=== PATIENT | female | born 1970 | race Caucasian/White ===

== ENCOUNTER → 2016-05-08 | Outpatient (CLI) | payer BC ==
[~2016-05-08] MED LIST: ACHYD1T PO; ALLO300T2 PO; AMOX-355 PO; CEFU250S PO; CETI10TA20 PO; CHOL100055 IJ; CIPR500T4 PO; FEXO-104 PO; FEXO-192 PO; FEXO-46 PO; GUAI1CAP PO; HYDR-1231 PO; HYDR-3720 PO; HYDR-3812 PO; HYDR-3876 PO; HYDR-757 PO; HYDR15SO6 GT; IBUP-1780 PO; LEVO100T7 PO; LEVO112T24 PO; LEVO500T2 PO; LIRA0.6P SQ; LISI1TAB10 PO; LVT.05T PO; METF-760 PO; METF750T2 PO; NITR-33 PO; NITR-68 PO; ONDA8TAB13 PO; OXYC-309 PO; PARO10TA3 PO; PHEN200T27 PO; POTA15TA PO; POTA15TA9 PO; PRD20T PO; PRINZIDE; PRX20T PO; ROPI0.5T2 PO; ROPI2TAB4 PO; TAMS0.4C98 PO
--- OUTSIDE RECORDS SUMMARY | 2016-05-08 15:50 | XMS REPORT | Continuity of Care Document ---
Author Author [facility] Organization [facility] Address Unknown Phone Unavailable Care Team Providers Care Telephone Order Supervisor Name Role Phone BASSAM OSORIO MD PCP Insurance Providers Payer Name Policy Number Subscriber Name Relationship [facility] [id number] Dimitris Mack 18 Self / Same As Patient Advance Directives Directive Response Recorded Date/Time Advance Directives No 01/30/14 7:00pm Health Care Power of Clinical Courier No 01/30/14 7:00pm Organ Donor No 01/30/14 7:00pm Resuscitation Status Full Code 01/30/14 7:00pm Problems Medical Problems Problem Onset Date Status Ureteric stone Unknown Active Medications Medication Dose Route Sig Days/Qty Instructions Order Date Discontinued Date Status Paroxetine HCl 20 Mg PO DAILY 04/21/06 Active Levothyroxine Sodium 50 Mcg PO DAILY 04/21/06 01/24/14 Discontinued [Prinzide] 04/21/06 06/02/13 Discontinued Acetaminophen/Hydrocodone Bitart ([place]) 1 Each PO Q4-6HR PRN PAIN 14 Qty 04/15/13 08/16/13 Discontinued Lisinopril/Hydrochlorothiazide 1 Each PO DAILY 06/02/13 Active Oxycodone Hcl/Acetaminophen 1 Each PO EVERY 4HRS PRN PAIN 14 Qty 08/16/13 Discontinued Ciprofloxacin Hcl 500 Mg PO TWICE A DAY 20 Qty 06/02/13 06/08/13 Discontinued Phenazopyridine HCl 1 Each PO TID PRN PRN SPASMS 30 Qty 06/02/1301/24 Discontinued Ondansetron 8 Mg PO EVERY 6 HOURS PRN NAUSEA/VOMITING 10 Qty 06/02/13 01/24/14 Discontinued Metformin HCl (Glucophage Xr) 750 Mg PO TWICE A DAY WITH MEALS 01/24/14 Discontinued Fexofenadine HCl 180 Mg PO BEDTIME 06/03/13 Active Ropinirole Hcl 2 Mg PO BEDTIME PRN RESTLESS LEG PRN RESTLESS LEG 01/24/14 Discontinued Guaifenesin/D-Methorphan Hb 1 Tab PO EVERY 12 HOURS PRN SINUS INFECTION 06/03/13 01/24/14 Discontinued Nitrofurantoin Macrocrystals 1 Each PO TWICE A DAY 14 Days 08/16/13 Discontinued Acetaminophen/Hydrocodone Bitart 1-2 Tab PO EVERY 4HRS For PAIN 30 Qty 08/16/13 01/24/14 Discontinued Levothyroxine Sodium 112 Mcg PO DAILY 01/24/14 Active Ropinirole Hcl 0.5 Mg PO BEDTIME PRN RESTLESS LEGS 01/24/14 Active Hydrocodone Bit/Acetaminophen 15-30 Ml GT EVERY 4HRS 350 Qty 01/31/14 Active Social History Social History Problem Response Recorded Date/Time Alcohol Use Denies Use 01/30/2014 7:00pm Recreational Drug Use No 01/30/2014 7:00pm Recent Foreign Travel No 06/02/2013 3:57pm Recent Infectious Disease Exposure No 06/02/2013 3:57pm Hospitalization with Isolation Denies 06/02/2013 3:57pm Sexually Transmitted Disease No 01/30/2014 7:00pm HIV/AIDS No 01/30/2014 7:00pm Smoking Status Never a Smoker 01/30/2014 2:11pm Query Response Start Date Stop Date Smoking Status Never a Smoker Hospital Discharge Instructions No hospital discharge instructions. Plan of Care No plan of care. Functional Status No functional status results. Allergies, Adverse Reactions, Alerts Allergen Type Severity Reaction Status Last Updated Erythromycin base Allergy Unknown Active 04/21/06 Immunizations Name Given Type Date of Influenza Vaccine 04/07/13 Historical Tetanus Booster (TDap) Unknown Historical Vital Signs Acute Vital Signs Vital Response Date/Time Temperature (Fahrenheit) 98.0 degrees F (97.6 - 99.5) Temperature (Calculated Celsius) 36.65361 degrees C (36.4 - 37.5) Temperature Source Tympanic Pulse Rate (adult) 83 bpm (60 - 90) Respiratory Rate 18 bpm (12 - 24) O2 Sat by Pulse Oximetry 94 % (88 - 100) Blood Pressure 128/84 mm Hg Pain Pain Intensity 0 Height (Feet) 5 feet Height (Inches) 5.00 inches Height (Calculated Centimeters) 165.107056 cm Weight (Pounds) 276 pounds Weight (Calculated Grams) 309368.495 gm Weight (Calculated Kilograms) 125.705280 kilograms Calculated BMI 45.92 Results Laboratory Results Test Name Result Units Flags Reference Collection Date/Time Result Date/ Time Comments Hemoglobin 13.6 G/DL 11.5-16.0 01/31/2014 5:13am 01/31/2014 5:47am Hematocrit 40 % 35-52 01/31/2014 5:13am 01/31/2014 5:47am Glucometer 109 MG/DL 70-110 01/31/2014 9:06am 01/31/2014 9:13am White Blood Count 8.5 10^3/uL 4.3-11.0 01/24/2014 11:10am 01/24/2014 11 :28am Red Blood Count 4.75 10^6/uL 4.35-5.85 01/24/2014 11:10am 01/24/2014 11 :28am Hemoglobin 14.5 G/DL 11.5-16.0 01/24/2014 11:10am 01/24/2014 11:28am Hematocrit 41 % 35-52 01/24/2014 11:10am 01/24/2014 11:28am Mean Corpuscular Volume 87 FL 80-99 01/24/2014 11:10am 01/24/2014 11: 28am Mean Corpuscular Hemoglobin 31 PG 25-34 01/24/2014 11:10am 01/24/2014 11:28am Mean Corpuscular Hemoglobin Concent 35 G/DL 32-36 01/24/2014 11:10am 11:28am Red Cell Distribution Width 12.7 % 10.0-14.5 01/24/2014 11:10am 2013 11:28am Platelet Count 314 10^3/uL 130-400 01/24/2014 11:01/24/2014 11: 28am Mean Platelet Volume 9.3 FL 7.4-10.4 01/24/2014 11:01/24/2014 11: 28am Neutrophils (%) (Auto) 62 % 42-75 01/24/2014 11:01/24/2014 11: 28am Lymphocytes (%) (Auto) 22 % 12-44 01/24/2014 11:01/24/2014 11: 28am Monocytes (%) (Auto) 7 % 0-12 01/24/2014 11:01/24/2014 11:28am Eosinophils (%) (Auto) 9 % 0-10 01/24/2014 11:01/24/2014 11:28am Basophils (%) (Auto) 1 % 0-10 01/24/2014 11:01/24/2014 11:28am Neutrophils # (Auto) 5.3 X 10^3 1.8-7.8 01/24/2014 11:01/24/2014 11:28am Lymphocytes # (Auto) 1.8 X 10^3 1.0-4.0 01/24/2014 11:01/24/2014 11:28am Monocytes # (Auto) 0.6 X 10^3 0.0-1.0 01/24/2014 11:01/24/2014 11: 28am Eosinophils # (Auto) 0.7 10^3/uL H 0.0-0.3 01/24/2014 11:01/24/2014 11:28am Basophils # (Auto) 0.1 10^3/uL 0.0-0.1 01/24/2014 11:01/24/2014 11 :28am Sodium Level 138 MMOL/L 135-145 01/24/2014 11:01/24/2014 11:43am Potassium Level 3.7 MMOL/L 3.6-5.0 01/24/2014 11:01/24/2014 11: 43am Chloride Level 103 MMOL/L 98-107 01/24/2014 11:01/24/2014 11:43am Carbon Dioxide Level 28 MMOL/L 21-32 01/24/2014 11:01/24/2014 11: 43am Blood Urea Nitrogen 8 MG/DL 7-18 01/24/2014 11:10am 01/24/2014 11:43am Creatinine 0.61 MG/DL 0.60-1.30 01/24/2014 11:10am 01/24/2014 11:43am BUN/Creatinine Ratio 13 01/24/2014 11:10am 01/24/2014 11:43am Estimat Glomerular Filtration Rate > 60 01/24/2014 11:10am 2013 11:43am GFR INTERPRETIVE DATA UNITS FOR ESTIMATED GFR (eGFR): mL/min/1.73 M2 REFERENCE RANGE FOR ESTIMATED GFR (eGFR) eGFR NORMAL eGFR >60 MODERATELY DECREASED eGFR 30-59 SEVERLY DECREASED eGFR 15-29 KIDNEY FAILURE <15 (OR DIALYSIS) Glucose Level 124 MG/DL H 70-105 01/24/2014 11:10am 01/24/2014 11:43am Calcium Level 9.1 MG/DL 8.5-10.1 01/24/2014 11:10am 01/24/2014 11:43am Procedures Procedure Status Date Provider(s) Laparoscopic repair of umbilical hernia completed 01/30/14 ADAN AUGUSTIN MD Encounters Encounter Location Date/Time Departed [facility] Day Care [facility] 01/30/14 12:40pm Registered Clinic [facility] 01/24/14 10:48am Registered Clinic [facility] 01/03/14 10:12am
--- NOTE | 2016-05-08 18:20 | Diagnostic Imaging Report ---
PROCEDURE: CT sinuses without contrast TECHNIQUE: Multiple contiguous axial images were obtained through the sinuses without the use of intravenous contrast. Coronal and sagittal reformations were then performed. INDICATION: Chronic sinusitis. COMPARISON: 11/21/15. FINDINGS: There is interval complete opacification of the left maxillary sinus. This also fills and obliterates the ostiomeatal complex region which appears to be widened. This is possibly related to prior surgery or if not surgically done, then underlying expansile process such as antrochoanal polyp could be considered. There are postsurgical changes seen in the ethmoidal air cells area with open drainage to the nasal cavity. There is development of mucosal thickening, however, or polyposis into the region of the left ethmoidal air cells contiguous with the left maxillary sinus lesion. The right maxillary sinus demonstrates mild mucosal thickening inferiorly. Postsurgical changes widening the drainage pathway are seen. The frontal sinuses are clear. The sphenoidal sinuses are clear. IMPRESSION: Interval sinonasal surgery seen when compared to 11/21/2015. There is complete opacification of the left maxillary sinus with widening of the drainage pathway which could be at least in part postsurgical. Correlate with operative details. This process extends to the left ethmoidal air cells area and perhaps further widens the drainage pathway of the left maxillary sinus, may suggest an underlying polyp. Dictated by: Dictated on workstation # [id number]
== END ==
LOC: RAD 15:47
PROVIDERS: ATTEND Otolaryngology Otolaryngology/Facial Plastic Surgery
DX: J32.9 Chronic sinusitis, unspecified (principal)
CPT/HCPCS: 70486

== ENCOUNTER 2016-05-26 06:03 | Outpatient (CLI) | payer BC ==
[~2016-05-26] VITALS: Ht 165.1 cm; Wt 123.4 kg
[~2016-05-26 06:03] MED LIST changes: -ALLO300T2 PO; -CEFU250S PO; -FEXO-192 PO; -LIRA0.6P SQ; -METF-760 PO
--- OUTSIDE RECORDS SUMMARY | 2016-05-26 06:07 | XMS REPORT | Continuity of Care Document ---
Author Author [facility] Organization [facility] Address Unknown Phone Unavailable Care Team Providers Care Refrigeration Houseman Name Role Phone BASSAM OSORIO MD PCP Insurance Providers Payer Name Policy Number Subscriber Name Relationship [facility] [id number] Dimitris Mack 18 Self / Same As Patient Advance Directives Directive Response Recorded Date/Time Advance Directives No 01/30/14 7:00pm Health Care Power of Inspector Rubber Stamp Die No 01/30/14 7:00pm Organ Donor No 01/30/14 7:00pm Resuscitation Status Full Code 01/30/14 7:00pm Problems Medical Problems Problem Onset Date Status Ureteric stone Unknown Active Medications Medication Dose Route Sig Days/Qty Instructions Order Date Discontinued Date Status Paroxetine HCl 20 Mg PO DAILY 04/21/06 Active Levothyroxine Sodium 50 Mcg PO DAILY 04/21/06 01/24/14 Discontinued [Prinzide] 04/21/06 06/02/13 Discontinued Acetaminophen/Hydrocodone Bitart ([facility]) 1 Each PO Q4-6HR PRN PAIN 14 [...] F (97.6 - 99.5) Temperature (Calculated Celsius) 36.85322 degrees C (36.4 - 37.5) Temperature Source Tympanic Pulse Rate (adult) 83 bpm (60 - 90) Respiratory Rate 18 bpm (12 - 24) O2 Sat by Pulse Oximetry 94 % (88 - 100) Blood Pressure 128/84 mm Hg Pain Pain Intensity 0 Height (Feet) 5 feet Height (Inches) 5.00 inches Height (Calculated Centimeters) 165.542916 cm Weight (Pounds) 276 pounds Weight (Calculated Grams) 362118.495 gm Weight (Calculated Kilograms) 125.223824 kilograms Calculated BMI 45.92 Results Laboratory Results [...] Location Date/Time Departed Surgical Day Care [facility] 01/30/14 12:40pm Registered Clinic [facility] 01/24/14 10:48am Registered Clinic [facility] 01/03/14 10:12am
[2016-05-26] MEDS ORDERED: LIRA0.6P SQ (16:00)
[2016-05-26] MEDS ORDERED: METF-760 PO (16:00)
[2016-05-26] MEDS ORDERED: FEXO-192 PO (16:00)
[2016-05-26] MEDS ORDERED: ALLO300T2 PO (16:00)
== END 2016-05-26 16:11 ==
LOC: PREOP 06:03
PROVIDERS: ATTEND Otolaryngology Otolaryngology/Facial Plastic Surgery
DX: Z01.818 Encounter for other preprocedural examination (principal); J32.0 Chronic maxillary sinusitis; J33.9 Nasal polyp, unspecified

== ENCOUNTER 2016-05-30 07:38 | Day surgery (SDC) | payer BC ==
[~2016-05-30] VITALS: Ht 165.1 cm; Wt 123.4 kg
[~2016-05-30 07:38] MED LIST changes: +ALLO300T2 PO; +FEXO-192 PO; +LIRA0.6P SQ; +METF-760 PO
[2016-05-30] MEDS: LACTATED RINGERS 1,000 ML IV PRN ×2 (07:55→10:25)
[2016-05-30 08:00] VITALS: BP 128/81
[2016-05-30 08:10] LABS: BASOPHILS # (AUTO) 0.1 10^3/uL (0.0-0.1); BASOPHILS % (AUTO) 1 % (0-10); EOSINOPHILS # (AUTO) 0.6 10^3/uL (0.0-0.3); EOSINOPHILS % (AUTO) 8 % (0-10); LYMPHOCYTES # (AUTO) 2.5 X 10^3 (1.0-4.0); LYMPHOCYTES % (AUTO) 32 % (12-44); MEAN CORPUSCULAR HEMOGLOBIN 29 PG (25-34); MEAN CORPUSCULAR HGB CONC 34 G/DL (32-36); MEAN CORPUSCULAR VOLUME 85 FL (80-99); MEAN PLATELET VOLUME 9.4 FL (7.4-10.4); MONOCYTES # (AUTO) 0.6 X 10^3 (0.0-1.0); MONOCYTES % (AUTO) 8 % (0-12); NEUTROPHILS % (AUTO) 52 % (42-75); PLATELET COUNT 395 10^3/uL (130-400); RED BLOOD COUNT 5.18 10^6/uL (4.35-5.85); RED CELL DISTRIBUTION WIDTH 13.1 % (10.0-14.5); WHITE BLOOD COUNT 7.7 10^3/uL (4.3-11.0)
[2016-05-30] MEDS ORDERED: CEFUROXIME 1.5 GM/NS 50 ML IVPB IV ONE ×2 (08:15)
[2016-05-30 08:24] LABS: ANION GAP 13 MMOL/L (5-14); BLOOD UREA NITROGEN 11 MG/DL (7-18); BUN/CREATININE RATIO 15; CALCIUM 9.3 MG/DL (8.5-10.1); CARBON DIOXIDE 26 MMOL/L (21-32); CHLORIDE 102 MMOL/L (98-107); CREATININE SERUM 0.73 MG/DL (0.60-1.30); GFR ESTIMATED > 60; GLUCOSE 122 MG/DL (70-105); POTASSIUM 3.7 MMOL/L (3.6-5.0); SODIUM 141 MMOL/L (135-145)
[2016-05-30] MEDS ORDERED: BSS 15 ML ONE (09:06)
[2016-05-30] MEDS ORDERED: COCAINE HCL 4% 2 ML SYR ONE (09:06)
[2016-05-30] MEDS ORDERED: PHENYLEPHRINE 0.5% NASAL SPR (NEO-SYNEPHRINE) REG ONE (09:06)
[2016-05-30] MEDS ORDERED: LIDOCAINE/EPI 1%-1:100,000 (XYLOCAINE) 20ML ONE (09:06)
[2016-05-30] MEDS ORDERED: MIDAZOLAM 2 MG/2 ML (VERSED) VIAL ONE (09:16)
[2016-05-30] MEDS ORDERED: fentaNYL INJECTION 100 MCG/2 ML AMP ONE (09:16)
[2016-05-30] MEDS ORDERED: proPOfol 200 MG/20 ML (DIPRIVAN) VIAL IV ONE (09:20)
[2016-05-30] MEDS ORDERED: ATRACURIUM 50 MG/5 ML (TRACRIUM) IV ONE (09:20)
[2016-05-30] MEDS ORDERED: DEXAMETHASONE PF 10 MG/ML (DECADRON) VIAL ONE (09:20)
[2016-05-30] MEDS ORDERED: SEVOFLURANE (ULTANE) 15 ML INHAL SOLN ONE (09:20)
[2016-05-30] MEDS ORDERED: LACTATED RINGERS 1,000 ML IV ONE ×2 (09:20→10:27)
[2016-05-30] MEDS ORDERED: LIDOCAINE PF 2% 10 ML (XYLOCAINE) AMP ONE (09:20)
--- NOTE | 2016-05-30 09:37 | Progress Note-Pre Operative ---
Pre-Operative Progress Note H&P Reviewed The H&P was reviewed, patient examined and no changes noted. Date H&P Reviewed: May 30, 2016 Time H&P Reviewed: 09:00 Pre-Operative Diagnosis: REcurrent Left Sinusitis STAN BALDWIN MD May 30, 2016 9:37 am
[2016-05-30] MEDS ORDERED: D5 1/2 NS W/KCL 20 MEQ/L 1,000 ML IV SCH (10:29)
[2016-05-30] MEDS ORDERED: GLYCOPYRROLATE 0.2 MG/ML (ROBINUL) 2 ML VIAL ONE (10:29)
[2016-05-30] MEDS ORDERED: NEOSTIGMINE (BLOXIVERZ ) 1 MG/1ML 10 ML VIAL ONE (10:29)
--- NOTE | 2016-05-30 10:29 | Progress Note-Post Operative ---
Post-Operative Progess Note Pre-Operative Diagnosis REcurrent Left Sinusitis Post-Operative Diagnosis same Post-Op Procedure Note Date of Procedure: May 30, 2016 Name of Procedure: REvision Left Endoscopic Sius Surgery Anesthesia Type get Estimated blood loss (mL): minimal Packing: DNP-Left Side Specimen(s) collected left sinus disease, aErobic and anaerobic clutlre with fungal cultures STAN BALDWIN MD May 30, 2016 10:29 am
[2016-05-30] MEDS ORDERED: PROMETHAZINE INJ 25 MG/ML (PHENERGAN) AMP IVP PRN (10:30)
[2016-05-30] MEDS ORDERED: HYDROcodone/APAP 5 MG/325 MG (LORTAB) TAB PO PRN (10:30)
[2016-05-30] MEDS ORDERED: ACETAMINOPHEN 325 MG TABLET/CAPLET (TYLENOL) PO PRN (10:30)
[2016-05-30] MEDS ORDERED: morphine INJ 10 MG/ML 1ML (SYR OR VIAL) ONE (10:33)
[2016-05-30] MEDS ORDERED: PROMETHAZINE INJ 25 MG/ML (PHENERGAN) AMP IV PRN (10:45)
[2016-05-30] MEDS ORDERED: MEPERIDINE (DEMEROL) INJ 50 MG/ML IV PRN (10:45)
[2016-05-30] MEDS ORDERED: ONDANSETRON 4 MG/2 ML (SDV) Z0FRAN IV PRN (10:45)
[2016-05-30] MEDS ORDERED: morphine INJ 10 MG/ML 1ML (SYR OR VIAL) IV PRN (10:45)
[2016-05-30] MEDS ORDERED: fentaNYL INJECTION 100 MCG/2 ML AMP IV PRN (10:45)
[2016-05-30] MEDS ORDERED: HYDR-3812 PO (10:56)
[2016-05-30] MEDS ORDERED: CEFU250S PO (10:56)
[2016-05-30 11:25] VITALS: BP 141/77
[2016-05-30 11:55] VITALS: BP 131/88
--- OUTSIDE RECORDS SUMMARY | 2016-06-01 12:01 | XMS REPORT | Continuity of Care Document ---
Author Author [facility] Organization [facility] Address Unknown Phone Unavailable Allergies Active Description Code Type Severity Reaction Onset Reported/Identified Relationship to Patient Clinical Status Yes ciprofloxacin [id number] Drug Allergy Mild SLEEPLESSNESS 05/26/2016 Yes Sulfa (Sulfonamide Antibiotics) [id number] Drug Allergy Mild SLEEPLESSNESS 05/26/2016 Yes erythromycin base [id number] Drug Allergy Unknown N/A 05/26/2016 Medications Problems Date Dx Coded Attending Type Code Diagnosis Diagnosed By 04/17/2009 Ot 250.00 04/17/2009 Ot 327.23 04/17/2009 Ot 401.9 01/18/2013 BASSAM OSORIO MD Ot 789.1 01/18/2013 BASSAM OSORIO MD Ot 790.6 04/15/2013 VAUGHN HUDDLESTON MD Ot 592.1 04/15/2013 VAUGHN HUDDLESTON MD Ot 789.04 06/02/2013 CANDI SAUCEDO Ot 592.1 06/02/2013 CANDI SAUCEDO Ot 724.5 06/08/2013 KRYSTIAN GRIMES MD Ot 592.0 08/16/2013 SYDNEY TOWNSEND, KRYSTIAN Rosenthal Ot 592.0 10/05/2013 KRYSTIAN GRIMES MD A Ot 592.9 01/31/2014 ADAN AUGUSTIN MD Ot 250.00 01/31/2014 ADAN AUGUSTIN MD Ot 272.0 01/31/2014 ADAN AUGUSTIN MD Ot 278.01 01/31/2014 ADAN AUGUSTIN MD Ot 327.23 01/31/2014 ADAN AUGUSTIN MD Ot 401.9 01/31/2014 ADAN AUGUSTIN MD Ot 553.1 01/31/2014 ADAN AUGUSTIN MD Ot V85.42 02/21/2014 ADAN AUGUSTIN MD Ot 553.1 02/21/2014 ADAN AUGUSTIN MD Ot 592.0 07/22/2014 KARO TOWNSEND, VAUGHN A Ot 787.01 07/22/2014 KARO TOWNSEND, VAUGHN A Ot V45.86 09/06/2014 SYDNEY TOWNSEND, KRYSTIAN A Ot 592.9 09/15/2014 SYDNEY TOWNSEND, KRYSTIAN A Ot 592.9 09/22/2014 SYDNEY TOWNSEND, KRYSTIAN A Ot 592.9 09/23/2014 KARO TOWNSEND, VAUGHN A Ot 592.1 09/23/2014 KARO TOWNSEND, VAUGHN A Ot 724.5 09/23/2014 Ot 465.9 09/23/2014 Ot 250.00 09/23/2014 Ot 599.0 09/23/2014 Ot 473.9 09/23/2014 DEVON TOWNSEND, BASSAM Hoyos Ot V76.12 09/23/2014 DEVON TOWNSEND, BASSAM Hoyos Ot 789.1 09/23/2014 DEVON TOWNSEND, BASSAM M Ot 592.0 09/23/2014 CANDI SAUCEDO Ot 592.0 09/23/2014 CANDI SAUCEDO Ot 724.5 09/23/2014 SYDNEY TOWNSEND, KRYSTIAN A Ot 592.1 09/23/2014 SYDNEY TOWNSEND, KRYSTIAN A Ot V72.63 09/23/2014 SYDNEY TOWNSEND, KRYSTIAN A Ot V72.81 09/23/2014 SYDNEY TOWNSEND, KRYSTIAN A Ot V72.83 09/23/2014 SYDNEY TOWNSEND, KRYSTIAN A Ot V72.84 09/23/2014 SYDNEY TOWNSEND, KRYSTIAN A Ot 592.0 09/23/2014 CHARLI TOWNSEND, ADAN Ot 530.81 09/23/2014 CHARLI TOWNSEND, ADAN Ot 553.3 09/23/2014 SYDNEY TOWNSEND, KRYSTIAN A Ot 592.0 09/23/2014 SYDNEY TOWNSEND, KRYSTIAN A Ot 592.0 09/23/2014 SYDNEY TOWNSEND, KRYSTIAN A Ot V72.84 09/23/2014 SYDNEY TOWNSEND, KRYSTIAN A Ot 592.0 09/23/2014 Ot 592.9 09/23/2014 CHARLI TOWNSEND, ADAN Ot 530.81 09/23/2014 CHARLI TOWNSEND, ADAN Ot V45.86 09/23/2014 CHARLI TOWNSEND, ADAN Ot 553.1 09/23/2014 CHARLI TOWNSEND, ADAN Ot 592.0 09/23/2014 CHARLI TOWNSEND, ADAN Ot 553.1 09/23/2014 CAHRLI TOWNSEND, ADAN Ot V72.63 09/23/2014 CHARLI TOWNSEND, ADAN Ot V74.8 09/23/2014 SYDNEY TOWNSEND, KRYSTIAN A Ot 592.9 10/11/2014 SYDNEY TOWNSEND, KRYSTIAN A Ot 592.9 11/07/2014 SYDNEY TOWNSEND, KRYSTIAN A Ot 592.0 12/04/2014 SYDNEY TOWNSEND, KRYSTIAN A Ot 592.9 12/04/2014 SYDNEY OTWNSEND, KRYSTIAN A Ot N20.9 12/11/2014 Ot 465.9 12/11/2014 Ot 250.00 12/11/2014 Ot 599.0 12/11/2014 Ot 473.9 12/11/2014 DEVON TOWNSEND, BASSAM Hoyos Ot V76.12 12/11/2014 DEVON TOWNSEND, BASSAM Hoyos Ot 789.1 12/11/2014 DEVON TOWNSEND, BASSAM Hoyos Ot 592.0 12/11/2014 CANDI SAUCEDO Ot 592.0 12/11/2014 CANDI SAUCEDO Ot 724.5 12/11/2014 SYDNEY TOWNSEND, KRYSTIAN Rosenthal Ot 592.1 12/11/2014 SYDNEY TOWNSEND, KRYSTIAN Rosenthal Ot V72.63 12/11/2014 SYDNEY TOWNSEND, KRYSTIAN A Ot V72.81 12/11/2014 SYDNEY TOWNSEND, KRYSTIAN A Ot V72.83 12/11/2014 SYDNEY TOWNSEND, KRYSTIAN A Ot V72.84 12/11/2014 SYDNEY TOWNSEND, KRYSTIAN A Ot 592.0 12/11/2014 CHARLI TOWNSEND, ADAN Ot 530.81 12/11/2014 CHARLI TOWNSEND, ADAN Ot 553.3 12/11/2014 SYDNEY TOWNSEND, KRYSTIAN A Ot 592.0 12/11/2014 SYDNEY TOWNSEND, KRYSTIAN A Ot 592.0 12/11/2014 SYDNEY TOWNSEND, KRYSTIAN A Ot V72.84 12/11/2014 SYDNEY TOWNSEND, KRYSTIAN A Ot 592.0 12/11/2014 Ot 592.9 12/11/2014 CHARLI TOWNSEND, TAKAAKI Ot 530.81 12/11/2014 CHARLI TOWNSEND, TAKAAKI Ot V45.86 12/11/2014 CHARLI TOWNSEND, TAKAAKI Ot 553.1 12/11/2014 CHARLI TOWNSEND, TAKAAKI Ot 592.0 12/11/2014 CHARLI TOWNSEND, TAKAAKI Ot 553.1 12/11/2014 CHARLI TOWNSEND, TAKAAKI Ot V72.63 12/11/2014 CHARLI TOWNSEND, TAKAAKI Ot V74.8 12/11/2014 SYDNEY TOWNSEND, KRYSTIAN A Ot 592.9 12/11/2014 SYDNEY TOWNSEND, KRYSTIAN A Ot 592.0 12/11/2014 SYDNEY TOWNSEND, KRYSTIAN A Ot V72.84 12/11/2014 SYDENY TOWNSEND, KRYSTIAN A Ot 592.9 01/01/2015 SYDNEY TOWNSEND, KRYSTIAN A Ot N20.0 01/01/2015 SYDNEY TOWNSEND, KRYSTIAN A Ot Z98.89 02/03/2015 LAURA LOVELL APRN Ot N13.2 11/13/2015 SYDNEY TOWNSEND, KRYSTIAN A Ot N20.9 URINARY CALCULUS, UNSPECIFIED 11/13/2015 SYDNEY TOWNSEND, KRYSTIAN A Ot N20.9 URINARY CALCULUS, UNSPECIFIED 11/21/2015 SYDNEY TOWNSEND, KRYSTIAN A Ot N20.9 URINARY CALCULUS, UNSPECIFIED 11/21/2015 SYDNEY TOWNSEND, KRYSTIAN A Ot N20.9 URINARY CALCULUS, UNSPECIFIED 11/21/2015 SYDNEY TOWNSEND, KRYSTIAN A Ot N20.9 URINARY CALCULUS, UNSPECIFIED 11/22/2015 LEIF ESQUIVEL DO Ot J32.9 CHRONIC SINUSITIS, UNSPECIFIED 11/22/2015 LEIF ESQUIVEL DO Ot R50.9 FEVER, UNSPECIFIED 11/22/2015 LEIF ESQUIVEL DO Ot J32.9 CHRONIC SINUSITIS, UNSPECIFIED 11/22/2015 LEIF ESQUIVEL DO Ot R50.9 FEVER, UNSPECIFIED 12/05/2015 LEIF ESQUIVEL DO Ot J32.9 CHRONIC SINUSITIS, UNSPECIFIED 12/05/2015 LEIF ESQUIVEL DO Ot R50.9 FEVER, UNSPECIFIED 12/19/2015 SYDNEY TOWNSEND, KRYSTIAN Rosenthal Ot N20.9 URINARY CALCULUS, UNSPECIFIED 02/07/2016 SYDNEY TOWNSEND, KRYSTIAN Rosenthal Ot N20.9 URINARY CALCULUS, UNSPECIFIED 02/11/2016 LEIF ESQUIVEL DO Ot J32.9 CHRONIC SINUSITIS, UNSPECIFIED 02/11/2016 LEIF ESQUIVEL DO Ot R50.9 FEVER, UNSPECIFIED 02/11/2016 SYDNEY TOWNSEND, KRYSTIAN Rosenthal Ot N20.9 URINARY CALCULUS, UNSPECIFIED 02/11/2016 Ot 592.9 URINARY CALCULUS NOS 02/11/2016 SYDNEY TOWNSEND, KRYSTIAN Rosenthal Ot 592.9 02/11/2016 SYDNEY TOWNSEND, KRYSTIAN Rosenthal Ot N20.9 URINARY CALCULUS, UNSPECIFIED 02/11/2016 STAN BALDWIN MD Ot J32.4 CHRONIC PANSINUSITIS 02/11/2016 STAN BALDWIN MD Ot 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 02/11/2016 STAN BALDWIN MD Ot 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 TURBINATES 02/11/2016 STAN BALDWIN MD Ot Z01.810 ENCOUNTER FOR PREPROCEDURAL CARDIOVASCUL 02/11/2016 STAN BALDWIN MD Ot Z01.811 ENCOUNTER FOR PREPROCEDURAL RESPIRATORY 02/11/2016 STAN BALDWIN MD Ot Z01.812 ENCOUNTER FOR PREPROCEDURAL LABORATORY E 02/11/2016 STAN BALDWIN MD Ot Z11.2 ENCOUNTER FOR SCREENING FOR OTHER BACTER 02/12/2016 STAN BALDWIN MD Ot J32.4 CHRONIC PANSINUSITIS 02/12/2016 STAN BALDWIN MD Ot 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 02/12/2016 STAN BALDWIN MD Ot 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 TURBINATES 02/12/2016 STAN BALDWIN MD Ot Z01.810 ENCOUNTER FOR PREPROCEDURAL CARDIOVASCUL 02/12/2016 STAN BALDWIN MD Ot Z01.811 ENCOUNTER FOR PREPROCEDURAL RESPIRATORY 02/12/2016 STAN BALDWIN MD Ot Z01.812 ENCOUNTER FOR PREPROCEDURAL LABORATORY E 02/12/2016 STAN BALDWIN MD Ot Z11.2 ENCOUNTER FOR SCREENING FOR OTHER BACTER 02/14/2016 STAN BALDWIN MD Ot 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 MAXILLARY SINUSITIS 02/14/2016 STAN BALDWIN MD Ot 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 CHRONIC ETHMOIDAL SINUSITIS 02/14/2016 STAN BALDWIN MD Ot 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 TURBINATES 02/15/2016 STAN BALDWIN MD Ot 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 MAXILLARY SINUSITIS 02/15/2016 STAN BALDWIN MD Ot J32.2 CHRONIC ETHMOIDAL SINUSITIS 02/15/2016 STAN BALDWIN MD, Ot 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 TURBINATES 2016 STAN BALDWIN MD Ot J32.9 CHRONIC SINUSITIS, UNSPECIFIED 05/09/2016 STAN BALDWIN MD, Ot J32.9 CHRONIC SINUSITIS, UNSPECIFIED 05/22/2016 STAN BALDWIN MD Ot J32.9 CHRONIC SINUSITIS, UNSPECIFIED 05/26/2016 Ot 592.9 URINARY CALCULUS NOS 05/26/2016 KRYSTIAN GRIMES MD Ot 592.9 05/26/2016 KRYSTIAN GRIMES MD A Ot N20.9 URINARY CALCULUS, UNSPECIFIED 05/27/2016 STAN BALDWIN MD Ot 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 MAXILLARY SINUSITIS 05/27/2016 STAN BALDWIN MD, Ot J33.9 NASAL POLYP, UNSPECIFIED 05/27/2016 STAN BALDWIN MD Ot Z01.818 ENCOUNTER FOR OTHER PREPROCEDURAL EXAMIN Procedures Results Test Result Range CD3+CD4+ (T4 helper) cells/100 cells in blood - 11/27/15 09:45 Timed urine calcium measurement (mass/volume) 45 % < 250 Urine oxalate detection 24 < 45 Urine uric acid measurement (mass/volume) 611 % < 700 Urine citrate measurement (mass/volume) 901 % > 320 Urine pH measurement 6.5 5.5-7.0 24 hour urine specimen volume measurement 2.34 % > 2.00 Sodium urate/total calculus mass ratio by infrared spectroscopy 145 % < 200 Sulfites [presence] in urine by test strip 9 < 30 Urine phosphate measurement (mass/volume) 772 % < 1100 Urine magnesium measurement (mass/volume) 82 % > 60 Urine calcium oxalate measurement 0.17 < 2.00 Urine calcium phosphate crystals detection by computer assisted method 0.23 < 2.00 24 hour urine sodium urate (saturation fraction) 1.38 < 2.00 Triple phosphate crystals detection in urine sediment by light microscopy 0.47 < 75.00 24 hour urine uric acid (saturation fraction) 0.40 < 2.00 Urine ammonium measurement 22 % 14-62 Urine potassium measurement 54 % 19-135 24 hour urine creatinine measurement (mass/time) 1548 % 600-1800 Clinical director medical writing review of results SEE FOOTNOTE NRG Complete blood count (CBC) with automated white blood cell (WBC) differential - 02/11/16 12:20 Blood leukocytes automated count (number/volume) 10.8 10*3/ uL 4.3-11.0 Blood erythrocytes automated count (number/volume) 4.90 10*6 /uL 4.35-5.85 Venous blood hemoglobin measurement (mass/volume) 14.4 g/dL 11.5-16.0 Blood hematocrit (volume fraction) 42 % 35-52 Automated erythrocyte mean corpuscular volume 85 [foz_us] 80-99 Automated erythrocyte mean corpuscular hemoglobin (mass per erythrocyte) 29 pg 25-34 Automated erythrocyte mean corpuscular hemoglobin concentration measurement ( mass/volume) 35 g/dL 32-36 Automated erythrocyte distribution width ratio 13.1 % 10.0-14.5 Automated blood platelet count (count/volume) 347 10*3/uL 130-400 Automated blood platelet mean volume measurement 9.3 [foz_us ] 7.4-10.4 Automated blood neutrophils/100 leukocytes 57 % 42-75 Automated blood lymphocytes/100 leukocytes 34 % 12-44 Blood monocytes/100 leukocytes 8 % 0-12 Automated blood eosinophils/100 leukocytes 1 % 0-10 Automated blood basophils/100 leukocytes 0 % 0-10 Blood neutrophils automated count (number/volume) 6.1 10*3 1.8-7.8 Blood lymphocytes automated count (number/volume) 3.6 10*3 1.0-4.0 Blood monocytes automated count (number/volume) 0.9 10*3 0.0-1.0 Automated eosinophil count 0.1 10*3/uL 0.0-0.3 Automated blood basophil count (count/volume) 0.0 10*3/uL 0.0-0.1 Whole blood basic metabolic panel - 02/11/16 12:20 Serum or plasma sodium measurement (moles/volume) 141 mmol/ L 135-145 Serum or plasma potassium measurement (moles/volume) 3.4 mmol/L 3.6-5.0 Serum or plasma chloride measurement (moles/volume) 103 mmol /L 98-107 Carbon dioxide 28 mmol/L 21-32 Serum or plasma anion gap determination (moles/volume) 10 mmol/L 5-14 Serum or plasma urea nitrogen measurement (mass/volume) 10 mg/dL 7-18 Serum or plasma creatinine measurement (mass/volume) 0.67 mg /dL 0.60-1.30 Serum or plasma urea nitrogen/creatinine mass ratio 15 NRG Serum or plasma creatinine measurement with calculation of estimated glomerular filtration rate > NRG Serum or plasma glucose measurement (mass/volume) 107 mg/dL 70-105 Serum or plasma calcium measurement (mass/volume) 9.1 mg/dL 8.5-10.1 Methicillin resistant Staphylococcus aureus (MRSA) screening culture - 13:25 Methicillin resistant Staphylococcus aureus (MRSA) screening culture NEG NRG Urine beta human chorionic gonadotropin (hCG) measurement - 02/14/16 07:00 Urine beta human chorionic gonadotropin (hCG) measurement NEGATIVE NEGATIVE Urine beta human chorionic gonadotropin (hCG) measurement - 05/30/16 07:46 Urine beta human chorionic gonadotropin (hCG) measurement NEGATIVE NEGATIVE Complete blood count (CBC) with automated white blood cell (WBC) differential - 05/30/16 07:55 Blood leukocytes automated count (number/volume) 7.7 10*3/ uL 4.3-11.0 Blood erythrocytes automated count (number/volume) 5.18 10*6 /uL 4.35-5.85 Venous blood hemoglobin measurement (mass/volume) 15.1 g/dL 11.5-16.0 Blood hematocrit (volume fraction) 44 % 35-52 Automated erythrocyte mean corpuscular volume 85 [foz_us] 80-99 Automated erythrocyte mean corpuscular hemoglobin (mass per erythrocyte) 29 pg 25-34 Automated erythrocyte mean corpuscular hemoglobin concentration measurement ( mass/volume) 34 g/dL 32-36 Automated erythrocyte distribution width ratio 13.1 % 10.0-14.5 Automated blood platelet count (count/volume) 395 10*3/uL 130-400 Automated blood platelet mean volume measurement 9.4 [foz_us ] 7.4-10.4 Automated blood neutrophils/100 leukocytes 52 % 42-75 Automated blood lymphocytes/100 leukocytes 32 % 12-44 Blood monocytes/100 leukocytes 8 % 0-12 Automated blood eosinophils/100 leukocytes 8 % 0-10 Automated blood basophils/100 leukocytes 1 % 0-10 Blood neutrophils automated count (number/volume) 4.0 10*3 1.8-7.8 Blood lymphocytes automated count (number/volume) 2.5 10*3 1.0-4.0 Blood monocytes automated count (number/volume) 0.6 10*3 0.0-1.0 Automated eosinophil count 0.6 10*3/uL 0.0-0.3 Automated blood basophil count (count/volume) 0.1 10*3/uL 0.0-0.1 Whole blood basic metabolic panel - 05/30/16 07:55 Serum or plasma sodium measurement (moles/volume) 141 mmol/ L 135-145 Serum or plasma potassium measurement (moles/volume) 3.7 mmol/L 3.6-5.0 Serum or plasma chloride measurement (moles/volume) 102 mmol /L 98-107 Carbon dioxide 26 mmol/L 21-32 Serum or plasma anion gap determination (moles/volume) 13 mmol/L 5-14 Serum or plasma urea nitrogen measurement (mass/volume) 11 mg/dL 7-18 Serum or plasma creatinine measurement (mass/volume) 0.73 mg /dL 0.60-1.30 Serum or plasma urea nitrogen/creatinine mass ratio 15 NRG Serum or plasma creatinine measurement with calculation of estimated glomerular filtration rate > NRG Serum or plasma glucose measurement (mass/volume) 122 mg/dL 70-105 Serum or plasma calcium measurement (mass/volume) 9.3 mg/dL 8.5-10.1 Bacteria identification in wound by culture - 05/30/16 10:03 Encounters ACCT No. Visit Date/Time Discharge Status Pt. Type Provider Facility Loc./Unit Complaint [id number] 05/26/2016 06:03:00 2016 16:11:00 DIS Outpatient STAN BALDWIN MD [facility] PREOP REVISIONS ESS ON LEFT [id number] 02/14/2016 06:50:00 2015 12:10:00 DIS Outpatient STAN BALDWIN MD [facility] SDC DEVIATED SEPTUM [id number] 02/11/2016 12:54:00 2015 15:00:00 DIS Outpatient STAN BALDWIN MD [facility] PREOP DEVIATED SEPTUM [id number] 11/27/2015 12:56:00 2015 00:01:00 DIS Outpatient KRYSTIAN GRIMES MD [facility] RAD STONES [id number] 02/03/2015 20:01:00 2014 21:19:00 DIS Emergency LAURA LOVELL APRN [facility] ER [id number] 12/11/2014 13:41:00 2014 23:59:59 CLS Outpatient KRYSTIAN GRIMES MD [facility] RAD [id number] 12/05/2014 00:08:00 2014 23:59:59 CLS Preadmit KRYSTIAN GRIMES MD [facility] RAD STONES [id number] 09/07/2014 13:56:00 2014 00:01:00 DIS Outpatient KRYSTIAN GRIMES MD [facility] RAD [id number] 11/07/2014 07:04:00 2014 11:10:00 DIS Outpatient KRYSTIAN GRIMES MD [facility] [id number] 11/01/2014 16:16:00 2014 23:59:59 CLS Outpatient KRYSTIAN GRIMES MD [facility] PREOP [id number] 09/23/2014 02:57:00 2014 04:47:00 DIS Emergency VAUGHN HUDDLESTON MD [facility] ER [id number] 07/22/2014 17:28:00 2014 20:58:00 DIS Emergency VAUGHN HUDDLESTON MD [facility] ER [id number] 01/30/2014 12:40:00 2013 12:00:00 DIS Outpatient ADAN AUGUSTIN MD [facility] [id number] 01/24/2014 10:48:00 2013 23:59:59 CLS Outpatient ADAN AUGUSTIN MD [facility] PREOP [id number] 01/03/2014 10:12:00 2013 23:59:59 CLS Outpatient ADAN AUGUSTIN MD [facility] RAD [id number] 12/27/2013 09:58:00 2013 23:59:59 CLS Outpatient ADAN AUGUSTIN MD [facility] RAD [id number] 07/10/2013 11:21:00 2013 00:01:00 DIS Outpatient KRYSTIAN GRIMES MD [facility] LAB [id number] 09/06/2013 15:05:00 2013 23:59:59 CLS Outpatient KRYSTIAN GRIMES MD [facility] RAD [id number] 08/16/2013 05:55:00 2013 10:15:00 DIS Outpatient KRYSTIAN GRIMES MD [facility] [id number] 08/15/2013 07:29:00 2013 23:59:59 CLS Outpatient KRYSTIAN GRIMES MD [facility] PREOP [id number] 08/02/2013 15:17:00 2013 23:59:59 CLS Outpatient KRYSTIAN GRIMES MD [facility] RAD [id number] 08/02/2013 07:59:00 2013 23:59:59 CLS Outpatient ADAN AUGUSTIN MD [facility] RAD [id number] 07/04/2013 15:17:00 2013 23:59:59 CLS Outpatient KRYSTIAN GRIMES MD [facility] RAD [id number] 06/08/2013 06:56:00 2013 11:30:00 DIS Outpatient KRYSTIAN GRIMES MD [facility] [id number] 06/03/2013 10:29:00 2013 23:59:59 CLS Outpatient KRYSTIAN GRIMES MD [facility] PREOP [id number] 06/03/2013 08:06:00 2013 23:59:59 CLS Outpatient CANDI SAUCEDO [facility] RAD [id number] 06/02/2013 15:15:00 2013 20:04:00 DIS Emergency CANDI SAUCEDO [facility] ER [id number] 04/18/2013 16:19:00 2013 23:59:59 CLS Outpatient BASSAM OSORIO MD [facility] RAD [id number] 04/15/2013 21:43:00 2013 23:58:00 DIS Emergency VAUGHN HUDDLESTON MD [facility] ER [id number] 01/18/2013 08:13:00 2012 15:00:00 DIS Outpatient BASSAM OSORIO MD [facility] RAD [id number] 01/10/2013 08:08:00 2012 23:59:59 CLS Outpatient BASSAM OSORIO MD [facility] RAD [id number] 12/31/2012 14:59:00 2012 23:59:59 CLS Outpatient BASSAM OSORIO MD [facility] RAD [id number] 05/30/2016 11:30:00 PEN Preadmit STAN BALDWIN MD [facility] EARLY RECURRENT LEFT MAXILLARY SINUS DISEASE [id number] 2016 15:47:00 ACT Outpatient STAN BALDWIN MD [facility] RAD CHRONIC SINUSITIS [id number] 02/08/2016 00:11:00 PEN Preadmit KRYSTIAN GRIMES MD [facility] RAD STONES [id number] 11/21/2015 15:58:00 ACT Outpatient LEIF ESQUIVEL DO [facility] RAD FEVER,CHRONIC SINUS INFECTION [id number] 09/26/2014 12:41:00 ACT Document Registration KRYSTIAN GRIMES MD [facility] RAD [id number] 09/23/2014 04:57:00 Document Registration [id number] 09/23/2014 04:57:00 Document Registration [id number] 09/23/2014 04:57:00 Document Registration [id number] 10/06/2013 00:00:00 Document Registration [id number] 01/14/2011 13:40:00 Document Registration [id number] 06/12/2010 14:46:00 Document Registration
== END 2016-05-30 11:08 | disposition home or self-care (01) ==
LOC: DELPENDDIS → SDC 07:38
PROVIDERS: ATTEND Otolaryngology Otolaryngology/Facial Plastic Surgery
DX: J32.2 Chronic ethmoidal sinusitis (principal); J32.0 Chronic maxillary sinusitis
CPT/HCPCS: 36415; 80048; 84703; 85025; 87070; 87075; 87077; 87081; 87101; 87186; 87205; 88304

== ENCOUNTER 2016-07-21 14:27 | Outpatient (RCR) | payer BC ==
--- NOTE | 2016-07-10 14:32 | Diagnostic Imaging Report ---
EXAMINATION: Portable upright radiograph of the chest. INDICATION: PICC line placement. FINDINGS: The lungs are clear. The heart size is normal. No effusion or pneumothorax. The mediastinum and rodo appear unremarkable. There is a right PICC line seen with the tip at the caval atrial junction. IMPRESSION: Right PICC line is placed with the tip at the cavoatrial junction. Dictated by: Dictated on workstation # [id number]
[2016-07-10] MEDS: cefTRIAXone 1 GM/NS 50 ML IVPB IV SCH ×2 (14:46)
[2016-07-10 15:34] VITALS: BP 131/82
[2016-07-11] MEDS: cefTRIAXone 1 GM/NS 50 ML IVPB IV SCH ×2 (12:02)
[2016-07-11 12:34] VITALS: BP 141/92
[2016-07-13] MEDS: cefTRIAXone 1 GM/NS 50 ML IVPB IV SCH ×2 (11:00)
[2016-07-13 11:12] VITALS: BP 129/94
[2016-07-14] MEDS: cefTRIAXone 1 GM/NS 50 ML IVPB IV SCH ×2 (13:14)
[2016-07-14 13:41] VITALS: BP 128/89
[2016-07-15] MEDS: cefTRIAXone 1 GM/NS 50 ML IVPB IV SCH ×2 (11:55)
[2016-07-15] MEDS: CATHETER FLUSH 10 ML SYR IV PRN ×2 (11:55→12:23)
[2016-07-15 12:25] VITALS: BP 127/92
[2016-07-16 16:00] VITALS: BP 123/82
[2016-07-16] MEDS: CATHETER FLUSH 10 ML SYR IV PRN ×2 (16:18→16:50)
[2016-07-16] MEDS: cefTRIAXone 1 GM/NS 50 ML IVPB IV SCH ×2 (16:19)
[2016-07-17] MEDS: CATHETER FLUSH 10 ML SYR IV PRN ×2 (12:56→13:25)
[2016-07-17] MEDS: cefTRIAXone 1 GM/NS 50 ML IVPB IV SCH ×2 (12:56)
[2016-07-17 13:25] VITALS: BP 131/72
[2016-07-18] MEDS: LEVOFLOXACIN 500 MG/D5W 100 ML (PRE-MIX) IV SCH (12:10)
[2016-07-18 12:13] LABS: BASOPHILS # (AUTO) 0.1 10^3/uL (0.0-0.1); BASOPHILS % (AUTO) 1 % (0-10); EOSINOPHILS # (AUTO) 0.5 10^3/uL (0.0-0.3); EOSINOPHILS % (AUTO) 7 % (0-10); LYMPHOCYTES % (AUTO) 27 % (12-44); MEAN CORPUSCULAR HEMOGLOBIN 29 PG (25-34); MEAN CORPUSCULAR HGB CONC 33 G/DL (32-36); MEAN CORPUSCULAR VOLUME 87 FL (80-99); MEAN PLATELET VOLUME 9.1 FL (7.4-10.4); MONOCYTES # (AUTO) 0.5 X 10^3 (0.0-1.0); MONOCYTES % (AUTO) 7 % (0-12); NEUTROPHILS # (AUTO) 4.3 X 10^3 (1.8-7.8); NEUTROPHILS % (AUTO) 59 % (42-75); PLATELET COUNT 310 10^3/uL (130-400); RED BLOOD COUNT 4.75 10^6/uL (4.35-5.85); RED CELL DISTRIBUTION WIDTH 13.9 % (10.0-14.5); WHITE BLOOD COUNT 7.4 10^3/uL (4.3-11.0)
--- NOTE | 2016-07-18 12:20 | Diagnostic Imaging Report ---
PA and lateral views of the chest Indication: Wheezing Findings: The lungs are clear. The heart size is normal. There is no effusion or pneumothorax The mediastinum and rodo appear unremarkable. There is a PICC line inserted through the right arm with the tip at the proximal right atrium level. Impression: No acute process. Dictated by: Dictated on workstation # [id number]
[2016-07-18 12:29] LABS: ALANINE AMINOTRANSFERASE 28 U/L (0-55); ALBUMIN 3.7 G/DL (3.2-4.5); ANION GAP 7 MMOL/L (5-14); ASPARTATE AMINO TRANSFERASE 20 U/L (5-34); BILIRUBIN,TOTAL 0.3 MG/DL (0.1-1.0); BLOOD UREA NITROGEN 9 MG/DL (7-18); BUN/CREATININE RATIO 14; CALCIUM 9.2 MG/DL (8.5-10.1); CARBON DIOXIDE 31 MMOL/L (21-32); CHLORIDE 103 MMOL/L (98-107); CREATININE SERUM 0.64 MG/DL (0.60-1.30); GFR ESTIMATED > 60; GLUCOSE 107 MG/DL (70-105); POTASSIUM 3.8 MMOL/L (3.6-5.0); SODIUM 141 MMOL/L (135-145); TOTAL PROTEIN 6.5 G/DL (6.4-8.2)
[2016-07-18 12:37] LABS: ERYTHROCYTE SEDIMENTATION RATE 44 MM/HR (0-20)
[2016-07-18 13:31] VITALS: BP 135/81
[2016-07-19] MEDS: LEVOFLOXACIN 500 MG/D5W 100 ML (PRE-MIX) IV SCH (10:31)
[2016-07-19] MEDS: CATHETER FLUSH 10 ML SYR IV PRN ×2 (10:31→11:25)
[2016-07-19 10:40] VITALS: BP 123/84
[2016-07-20] MEDS: LEVOFLOXACIN 500 MG/D5W 100 ML (PRE-MIX) IV SCH (10:34)
[2016-07-20] MEDS: CATHETER FLUSH 10 ML SYR IV PRN ×2 (10:34→11:32)
[2016-07-20 10:39] VITALS: BP 135/87
[~2016-07-21] VITALS: Ht 165.1 cm; Wt 123.4 kg
[~2016-07-21 14:27] MED LIST changes: +CEFU250S PO; +LEVOFLOXACIN 500 MG/100 ML IV 100 ML ONE; +NS (IVPB) 50 ML ONE; +cefTRIAXone 1 GM (ROCEPHIN) VIAL ONE
[2016-07-21] MEDS: LEVOFLOXACIN 500 MG/D5W 100 ML (PRE-MIX) IV SCH (14:35)
[2016-07-21 15:10] VITALS: BP 131/85
== END 2016-10-08 | disposition home or self-care (01) ==
LOC: SDC 14:27
PROVIDERS: ATTEND Nurse Practitioner Family
DX: J32.9 Chronic sinusitis, unspecified (principal)
CPT/HCPCS: 36415; 36569; 71010; 71020; 76937; 80053; 85025; 85652; 87070; 87077; 87186; 87205; 96365; 99211

== ENCOUNTER 2016-10-23 16:34 | Outpatient (RCR) | payer BC ==
--- NOTE | 2016-10-21 17:40 | Diagnostic Imaging Report ---
EXAMINATION: Supine abdomen. INDICATION: Nephrolithiasis. Two supine views of the abdomen were obtained. FINDINGS: The previous exam of 11/09/2015 failed to show any sign of urolithiasis or nephrolithiasis. On this study, there are a few minute calculi low in the pelvis. These were present on the prior exam and are most likely due to phleboliths. There is no evidence for a calculus overlying either kidney, although both kidneys are partially obscured by bowel gas and fecal material. There is no mass or organomegaly appreciated. The bowel gas pattern is nonspecific. There is no sign of a bowel obstruction. The osseous structures are intact. As noted on the prior exam, the patient has had a prior LAP-BAND procedure. IMPRESSION: 1. There is no acute abnormality identified. 2. There are no pathological calcifications overlying the kidneys or the pelvis. Dictated by: Dictated on workstation # [id number]
[~2016-10-23 16:34] MED LIST changes: -LEVOFLOXACIN 500 MG/100 ML IV 100 ML ONE; -NS (IVPB) 50 ML ONE; -cefTRIAXone 1 GM (ROCEPHIN) VIAL ONE
[2016-10-28 16:38] LABS: STONE RISK AMMONIUM 23 mEq/24hr (14-62); STONE RISK BRUSHITE 5.63 (< 2.00); STONE RISK CA OXALATE 2.08 (< 2.00); STONE RISK CALCIUM 264 mg/day (< 250); STONE RISK CITRATE 1176 mg/day (> 320); STONE RISK CREATININE 1654 mg/day (600-1800); STONE RISK MAGNESIUM 151 mg/day (> 60); STONE RISK OXALATE 31 mg/day (< 45); STONE RISK PH 6.9 (5.5-7.0); STONE RISK PHOSPHOROUS 919 mg/day (< 1100); STONE RISK POTASSIUM 61 mEq/24hr (19-135); STONE RISK SODIUM 142 mEq/24hr (< 200); STONE RISK SODIUM URATES 2.43 (< 2.00); STONE RISK STRUVITE 15.21 (< 75.00); STONE RISK SULFITE 12 mmol/day (< 30); STONE RISK TOTAL VOLUME 1.36 L/day (> 2.00); STONE RISK URIC ACID 390 mg/day (< 700); STONE RISK URIC ACID SAT 0.18 (< 2.00)
== END 2016-10-28 07:15 | disposition home or self-care (01) ==
LOC: RAD 16:34 → EDSTATUS 10-28 07:13 → RAD 10-28 07:15
PROVIDERS: ATTEND Urology
DX: Z87.442 Personal history of urinary calculi (principal)
CPT/HCPCS: 74000

== ENCOUNTER → 2017-02-06 | Outpatient (CLI) | payer BC | LOC: RAD 15:02 | PROVIDERS: ATTEND Nurse Practitioner Family | DX: Z12.31 Encounter for screening mammogram for malignant neoplasm of breast (principal) | CPT/HCPCS: 77067 ==

== ENCOUNTER 2017-03-12 15:37 | Inpatient (IN) | payer BC ==
[~2017-03-12] VITALS: Ht 165.1 cm; Wt 131.3 kg
[2017-03-12] VITALS (9 sets, daily range): BP systolic 90–117; BP diastolic 49–89
[~2017-03-12 15:37] MED LIST changes: +ACHD5005 PO; -HYDR-3812 PO
[2017-03-12] MEDS ORDERED: ACETAMINOPHEN 650 MG SUPP (TYLENOL) PR PRN (16:15)
[2017-03-12] MEDS ORDERED: PIPERACILLIN SODIUM/TAZOBACTAM 4.5 GM in NS (IVPB) 100 ML IV ONE (16:15)
[2017-03-12] MEDS ORDERED: fentaNYL INJECTION 100 MCG/2 ML AMP IVP PRN (16:15)
--- NOTE | 2017-03-12 16:38 | Diagnostic Imaging Report ---
INDICATION: Wheezing. EXAMINATION: Portable erect AP chest at 4:24 p.m. FINDINGS: The heart size is within normal limits and stable when compared to 07/18/2016. The lungs are clear. There is no evidence for pneumonia or for a pleural effusion. There is no sign of failure either. The mediastinum is not widened. The osseous structures are intact. IMPRESSION: There is no evidence for an acute cardiopulmonary abnormality. Dictated by: Dictated on workstation # [id number]
[2017-03-12 16:52] LABS: BASOPHILS # (AUTO) 0.1 10^3/uL (0.0-0.1); BASOPHILS % (AUTO) 1 % (0-10); EOSINOPHILS % (AUTO) 0 % (0-10); HEMATOCRIT 41 % (35-52); HEMOGLOBIN 15.5 G/DL (11.5-16.0); LYMPHOCYTES # (AUTO) 0.7 X 10^3 (1.0-4.0); LYMPHOCYTES % (AUTO) 7 % (12-44); MEAN CORPUSCULAR HEMOGLOBIN 29 PG (25-34); MEAN CORPUSCULAR HGB CONC 38 G/DL (32-36); MEAN CORPUSCULAR VOLUME 77 FL (80-99); MEAN PLATELET VOLUME 8.7 FL (7.4-10.4); MONOCYTES # (AUTO) 1.2 X 10^3 (0.0-1.0); MONOCYTES % (AUTO) 12 % (0-12); NEUTROPHILS # (AUTO) 8.2 X 10^3 (1.8-7.8); NEUTROPHILS % (AUTO) 81 % (42-75); PLATELET COUNT 304 10^3/uL (130-400); RED BLOOD COUNT 5.32 10^6/uL (4.35-5.85); RED CELL DISTRIBUTION WIDTH 13.1 % (10.0-14.5); WHITE BLOOD COUNT 10.2 10^3/uL (4.3-11.0)
[2017-03-12] MEDS: NS IV 1000 ML 1,000 ML IV PRN ×3 (16:59→23:49)
[2017-03-12] MEDS: ONDANSETRON 4 MG/2 ML (SDV) Z0FRAN IVP PRN ×2 (17:00→21:00)
[2017-03-12] MEDS ORDERED: VANCOMYCIN INJECTION 2,500 MG in NS IV 500 ML 500 ML IV NR (17:00)
[2017-03-12] MEDS: ACETAMINOPHEN 500 MG TAB (TYLENOL) PO PRN (17:00)
[2017-03-12] MEDS: IBUPROFEN TABLET 200 MG TAB PO PRN (17:01)
[2017-03-12 17:05] LABS: INR 1.1 (0.8-1.4); PROTHROMBIN TIME PATIENT 14.2 SEC (12.2-14.7)
[2017-03-12 17:19] LABS: BAND NEUTROPHILS 1 %; BASOPHILS % (MANUAL) 1 %; EOSINOPHILS % (MANUAL) 0 %; LYMPHOCYTES % (MANUAL) 3 %; MONOCYTES % (MANUAL) 6 %; NEUTROPHILS % (MANUAL) 86 %; RBC MORPH NORMAL; REACTIVE LYMPHOCYTES 3 %
[2017-03-12] MEDS ORDERED: INFLUENZA TRIvalent 2017-2018 0.5 ML/45 MCG SYR IM ONE (17:30)
[2017-03-12 17:35] LABS: ALANINE AMINOTRANSFERASE 104 U/L (0-55); ALBUMIN 4.2 GM/DL (3.2-4.5); ALKALINE PHOSPHATASE 118 U/L (40-136); BILIRUBIN,TOTAL 0.8 MG/DL (0.1-1.0); BUN/CREATININE RATIO 10; CALCIUM 10.1 MG/DL (8.5-10.1); CARBON DIOXIDE 25 MMOL/L (21-32); CHLORIDE 98 MMOL/L (98-107); CREATININE SERUM 0.96 MG/DL (0.60-1.30); GFR ESTIMATED > 60; GLUCOSE 167 MG/DL (70-105); POTASSIUM 3.4 MMOL/L (3.6-5.0); SODIUM 137 MMOL/L (135-145); TOTAL PROTEIN 8.2 GM/DL (6.4-8.2)
[2017-03-12] MEDS ORDERED: CHOL500049 PO (17:46)
[2017-03-12] MEDS ORDERED: diphenhydrAMINE 25 MG TAB (BENADRYL) PO PRN (22:00)
[2017-03-12] MEDS ORDERED: rOPINIRole 0.25 MG (REQUIP) TAB PO ONE (22:00)
[2017-03-12] MEDS: OSELTAMIVIR 75 MG (TAMIFLU) BOX OF 10 PO SCH (22:08)
[2017-03-12] MEDS ORDERED: LORazepam INJ 2 MG/ML (ATIVAN) VIAL IV PRN (22:30)
[2017-03-13] VITALS (9 sets, daily range): BP systolic 102–138; BP diastolic 54–87
[2017-03-13] MEDS: NS IV 1000 ML 1,000 ML IV PRN (03:25)
[2017-03-13 05:06] LABS: BASOPHILS % (AUTO) 1 % (0-10); EOSINOPHILS # (AUTO) 0.1 10^3/uL (0.0-0.3); EOSINOPHILS % (AUTO) 1 % (0-10); HEMATOCRIT 35 % (35-52); HEMOGLOBIN 13.4 G/DL (11.5-16.0); LYMPHOCYTES # (AUTO) 1.2 X 10^3 (1.0-4.0); LYMPHOCYTES % (AUTO) 19 % (12-44); MEAN CORPUSCULAR HEMOGLOBIN 30 PG (25-34); MEAN CORPUSCULAR HGB CONC 38 G/DL (32-36); MEAN CORPUSCULAR VOLUME 79 FL (80-99); MEAN PLATELET VOLUME 8.8 FL (7.4-10.4); MONOCYTES # (AUTO) 1.4 X 10^3 (0.0-1.0); MONOCYTES % (AUTO) 22 % (0-12); NEUTROPHILS # (AUTO) 3.7 X 10^3 (1.8-7.8); NEUTROPHILS % (AUTO) 57 % (42-75); PLATELET COUNT 244 10^3/uL (130-400); RED BLOOD COUNT 4.45 10^6/uL (4.35-5.85); RED CELL DISTRIBUTION WIDTH 13.3 % (10.0-14.5); WHITE BLOOD COUNT 6.4 10^3/uL (4.3-11.0)
[2017-03-13 05:23] LABS: CALCIUM 8.2 MG/DL (8.5-10.1); CREATININE SERUM 1.05 MG/DL (0.60-1.30); MAGNESIUM 1.7 MG/DL (1.8-2.4); PHOSPHORUS 3.5 MG/DL (2.3-4.7); POTASSIUM 3.5 MMOL/L (3.6-5.0)
[2017-03-13] MEDS ORDERED: POTASSIUM CL 10MEQ/50ML IVPB 50 ML IV SCH ×2 (06:00)
[2017-03-13] MEDS ORDERED: MAGNESIUM 1 GM/100 ML IVPB 100 ML IV SCH ×2 (06:00)
[2017-03-13] MEDS ORDERED: KCL 20 MEQ TAB (K-DUR) PO SCH ×2 (06:00)
[2017-03-13] MEDS ORDERED: VANCOMYCIN 1,750 MG/NS 500 ML IVPB IV SCH ×2 (06:00)
--- NOTE | 2017-03-13 06:40 | Pulmonary Consultation ---
History of Present Illness History of Present Illness Date of Consultation 03/13/17 06:35 Time Seen by Provider: 06:35 Date of Admission History of Present Illness 46yo presented as direct admit to ICU from Dr. Edgar's office secondary to very high fevers, body aches, and nausea. TM here is 104.7. There are no signs of infection. CXR is normal. No cough. Influenza swab is positive for A. Pt states her daughter also has the flu. No prior episodes like this. I am consulted for ICU management. Allergies and Home Medications Allergies Coded Allergies: Sulfa (Sulfonamide Antibiotics) (Verified Allergy, Mild, SLEEPLESSNESS, ) ciprofloxacin (Verified Allergy, Mild, SLEEPLESSNESS, 05/26/16) erythromycin base (Verified Allergy, Unknown, 05/26/16) Home Medications Allopurinol 300 Mg Tablet, 300 MG PO DAILY, (Reported) Cholecalciferol (Vitamin D3) 50,000 Unit Capsule, 50,000 UNIT PO WEEK, (Reported ) Levothyroxine Sodium 100 Mcg Tablet, 100 MCG PO DAILY, (Reported) Liraglutide 0.6 Mg/0.1 Ml Pen.injctr, 1.8 MG SQ DAILY, (Reported) Liraglutide 0.6 Mg/0.1 Ml Pen.injctr, 0.6 MG SQ DAILY, (Reported) Lisinopril/Hydrochlorothiazide 1 Each Tablet, 1 EACH PO DAILY, (Reported) Metformin HCl 500 Mg Rrtzapx82s, 500 MG PO DAILY, (Reported) Paroxetine Hcl 20 Mg Tablet, 20 MG PO DAILY, (Reported) Potassium Citrate 15 Meq Tablet.er, 15 MEQ PO BID, (Reported) Ropinirole HCl 0.5 Mg Tablet, 0.5 MG PO Q12H PRN for ANXIETY, (Reported) Past Omruvbq-Vwxqnu-Crdsvk Hx Patient Social History Alcohol Use: Occasionally Uses Recreational Drug Use: No Smoking Status: Never a Smoker Recent Foreign Travel: No Contact w/Someone Who Travel: No Recent Infectious Disease Expo: No Recent Hopitalizations: No Immunizations Up To Date Tetanus Booster (TDap): Unknown Date of Pneumonia Vaccine: Jan 10, 2017 Date of Influenza Vaccine: Apr 07, 2013 Seasonal Allergies Seasonal Allergies: No Surgeries History of Surgeries: Yes ( LIVER BX, CYSTO AND UTEREROSCOPY, LAP BAND, eswl, hernia) Surgeries: Section Respiratory History of Respiratory Disorde: Yes (CPAP) Respiratory Disorders: Sleep Apnea Currently Using CPAP: Yes Currently Using BIPAP: No Cardiovascular History of Cardiac Disorders: Yes Cardiac Disorders: Hypertension Neurological History of Neurological Disord: No Reproductive System Hx Reproductive Disorders: No Sexually Transmitted Disease: No HIV/AIDS: No Female Reproductive Disorders: Denies Genitourinary History of Genitourinary Disor: Yes Genitourinary Disorders: Kidney Stones Gastrointestinal History of Gastrointestinal Di: No Gastrointestinal Disorders: Hiatal Hernia Musculoskeletal History of Musculoskeletal Dis: No Endocrine History of Endocrine Disorders: Yes (BOARDERLINE) Endocrine Disorders: Hypothyroidsim HEENT History of HEENT Disorders: No Cancer History of Cancer: No Psychosocial History of Psychiatric Problem: Yes Behavioral Health Disorders: Anxiety Integumentary History of Skin or Integumenta: No Blood Transfusions History of Blood Disorders: No Adverse Reaction to a Blood Tr: No (N/A) Family Medical History Family Medial History: Diabetes mellitus 19 FATHER Fibromyalgia G8 SISTER Hypertension 19 MOTHER Myocardial infarction 19 FATHER (X2) Review of Systems Time Seen by Provider: 06:59 Constitutional: Fever, Chills, Sweats, Weakness, Malaise Eyes: No: Pain, Vision change, Conjunctivae inflammation, Eyelid inflammation, Other, Redness ENT: No: Ear pain, Ear discharge, Nose pain, Nose discharge, Nose congestion, Mouth pain, Mouth swelling, Throat pain, Throat swelling, Other Respiratory: Cough, Sputum, No: Shortness of breath, SOB with excertion Cardiovascular: Lt Headedness, No: Chest Pain, Palpitations, Orthopnea, Paroxysmal Noc. Dyspnea, Edema, Other Gastrointestinal: Nausea, Vomiting, Abdominal Pain Genitourinary: No Dysuria, No Frequency, No Incontinence, No Hematuria, No Retention, No Other Musculoskeletal: No: other, neck pain, shoulder pain, arm pain, back pain, hand pain, leg pain, foot pain Skin: No: Rash, Lesions, Jaundice, Bruising, Other Neurological: Weakness, Incoordination, No: Confusion Exam Exam Vital Signs Date Time Temp Pulse Resp B/P (MAP) Pulse Ox O2 Delivery O2 Flow Rate FiO2 03/13/17 06:00 100 11 138/69 (92) 94 Room Air 03/13/17 05:00 93 22 132/79 (96) 92 Room Air 03/13/17 04:00 91 22 116/69 (85) 89 Room Air 03/13/17 04:00 98 Room Air 03/13/17 03:20 99.0 03/13/17 03:00 92 21 133/65 (87) 94 Room Air 03/13/17 02:00 88 20 126/77 (93) 89 Room Air 03/13/17 01:00 88 03/13/17 01:00 87 16 102/54 (70) 95 Room Air 03/13/17 00:00 84 22 104/87 (93) 98 Room Air 03/13/17 00:00 98 Room Air 03/12/17 23:00 86 19 103/65 (78) 97 Room Air 03/12/17 22:40 99.5 03/12/17 22:00 79 12 90/60 (70) 92 Room Air 03/12/17 21:00 92 13 110/49 (69) 98 Room Air 03/12/17 20:00 98 Room Air 03/12/17 20:00 93 21 117/89 (98) 97 Room Air 03/12/17 19:46 100.9 03/12/17 19:00 105 03/12/17 19:00 102.0 03/12/17 19:00 106 14 98 Room Air 03/12/17 18:00 123 16 102/49 (66) 98 Room Air 03/12/17 17:30 123 18 96/49 (65) 97 Room Air 03/12/17 17:30 103.1 03/12/17 17:00 126 16 105/52 (69) 98 Room Air 03/12/17 16:45 131 15 115/65 (82) 97 Room Air 03/12/17 16:30 135 17 98 Room Air 03/12/17 16:25 104.7 03/12/17 16:16 133 03/12/17 16:15 133 18 116/64 (81) 98 Room Air I & O 03/13/17 07:00 Intake Total 3750 ml Output Total 250 ml Balance 3500 ml General Appearance: No Apparent Distress, Anxious HEENT: PERRL/EOMI, TMs Normal, Pharynx Normal Neck: Normal Inspection, Non Tender, Supple Respiratory: No Accessory Muscle Use, No Respiratory Distress, Decreased Breath Sounds Cardiovascular: Regular Rate, Rhythm, No Edema, No Gallop, No JVD Gastrointestinal: non tender, soft, no organomegaly, no pulsatile mass Extremity: Normal Capillary Refill, Normal Inspection Neurologic/Psychiatric: Alert, Oriented x3 Skin: Normal Color, Warm/Dry Lymphatic: No Adenopathy Results Lab Laboratory Tests 03/12/17 16:34 03/13/17 04:20 Assessment/Plan Assessment/Plan Influenza A -- pt did not have flu vaccination -Continue Tamiflu -D/C Vanco and Zosyn Metabolic lactic acidosis -Improving Dehydration with decreased UO -Continue IVF -Will give 250cc/hr x 2 liters then 150cc/hr Hypokalemia, and hypomagnesium -replace Pt appears to be stable. [facility] transfer [facility] and continue to treat her for influenza. 255 Clinical Quality Measures DVT/VTE Risk/Contraindication: Risk Factor Score Per Nursin RFS Level Per Nursing on Admit: 2=Moderate TANNER REYES DO Mar 13, 2017 06:40
[2017-03-13] MEDS ORDERED: PROMETHAZINE INJ 25 MG/ML (PHENERGAN) AMP IVP PRN (06:45)
[2017-03-13] MEDS: MAGNESIUM 1 GM/100 ML IVPB 100 ML IV SCH ×2 (06:55→07:59)
[2017-03-13] MEDS: POTASSIUM CL 10MEQ/50ML IVPB 50 ML IV SCH ×2 (06:55→07:59)
[2017-03-13] MEDS: ACETAMINOPHEN 500 MG TAB (TYLENOL) PO PRN (06:56)
[2017-03-13] MEDS ORDERED: NS IV 1000 ML 1,000 ML IV SCH ×2 (07:00→09:00)
[2017-03-13] MEDS: OSELTAMIVIR 75 MG (TAMIFLU) BOX OF 10 PO SCH (08:01)
[2017-03-13] MEDS: IBUPROFEN TABLET 200 MG TAB PO PRN (08:20)
--- NOTE | 2017-03-13 08:32 | Diagnostic Imaging Report ---
Portable erect AP chest at 540 hours. INDICATION: Hypertension. FINDINGS: The heart size is within normal limits and stable when compared 03/12/2017. The lungs remain clear. There still is no evidence for failure, pneumonia or for pleural effusion to indicate an acute abnormality. As on the prior exam, there is a vague area of increased density overlying the left lung base. Most likely this is secondary to the left breast shadow. The mediastinum is not widened. The osseous structures are intact. IMPRESSION: Stable chest. There has been no adverse change since the prior exam. Dictated by: Dictated on workstation # [id number]
[2017-03-13] MEDS ORDERED: METF500T8 PO (09:04)
[2017-03-13] MEDS ORDERED: PARO20TA5 PO (09:04)
[2017-03-13] MEDS ORDERED: LISI1TAB10 PO (09:04)
[2017-03-13] MEDS ORDERED: ROPI4TAB21 PO (09:11)
[2017-03-13] MEDS ORDERED: ROPI0.5T2 PO (09:11)
[2017-03-13] MEDS ORDERED: ACHD5005 PO (09:17)
[2017-03-13] MEDS ORDERED: ONDA8TAB9 PO (10:42)
[2017-03-13] MEDS ORDERED: OSLT75C PO (10:42)
[2017-03-13] MEDS ORDERED: RELABEL FOR HOME USE MC SCH ×2 (10:45→12:15)
[2017-03-13] MEDS ORDERED: HYDROcodone/APAP 5 MG/325 MG (LORTAB) TAB PO PRN (10:45)
--- NOTE | 2017-03-13 10:45 | History & Physical-Hospitalist ---
HPI History of Present Illness: HPI/Chief Complaint CC: Fever w/severe N/V HPI: This is a 46-year-old white female clinic patient of Dr. Edgar whom is in the mist of workup for immunoglobulin deficiency which appears that it is negative workup per patient the presents to the ICU as a direct admission from Dr. Edgar's office due to reported fever of 105.1 at his office within repeat here was 104.7 with hypotension at his office with systolic blood pressure of 90. She was suspected to have severe sepsis to septic shock so she was directly admitted to the ICU placed on sepsis protocol given aggressive IV fluid resuscitation placed on broad-spectrum antibiotics of vancomycin and Zosyn and workup ensued. Lactic acid was elevated at 2.4 and influenza A was positive. Patient was empirically placed on Tamiflu before diagnosis made for influenza. At this current time patient denies any nausea or vomiting and is able to tolerate clear liquids and she is in the mist of recovering will Hep- Lock all fluids ambulate and likely discharge this afternoon. Source: patient Exam Limitations: no limitations Date Seen 03/13/17 Time Seen by Provider: 10:00 Attending Physician Rosana Arizmendi DO PCP Zurdo Edgar DO Referring Physician Date of Admission Mar 12, 2017 at 16:05 Home Medications & Allergies Home Medications Reviewed patient Home Medication Reconciliation Form Allergies Allergies Coded Allergies Sulfa (Sulfonamide Antibiotics) (Verified Allergy, Mild, SLEEPLESSNESS, ) ciprofloxacin (Verified Allergy, Mild, SLEEPLESSNESS, 05/26/16) erythromycin base (Verified Allergy, Unknown, 05/26/16) Past Yfgyhgf-Azihxu-Fgcojb Hx Patient Social History Marrital Status: Alcohol Use: Occasionally Uses Recreational Drug Use: No Smoking Status: Never a Smoker Physical Abuse Screen: No Sexual Abuse: No Recent Foreign Travel: No Contact w/other who traveled: No Recent Hopitalizations: No Recent Infectious Disease Expo: No Immunizations Up To Date Tetanus Booster (TDap): Unknown Date of Pneumonia Vaccine: Jan 10, 2017 Date of Influenza Vaccine: Apr 07, 2013 Seasonal Allergies Seasonal Allergies: No Surgeries Yes ( LIVER BX, CYSTO AND UTEREROSCOPY, LAP BAND, eswl, hernia) Section Respiratory Yes (CPAP) Sleep Apnea Currently Using CPAP: Yes Currently Using BIPAP: No Cardiovascular Yes Hypertension Neurological No Reproductive System Hx Reproductive Disorders: No Sexually Transmitted Disease: No HIV/AIDS: No Female Reproductive Disorders: Denies Genitourinary Yes Kidney Stones Gastrointestinal No Hiatal Hernia Musculoskeletal No Endocrine History of Endocrine Disorders: Yes (BOARDERLINE) Endocrine Disorders: Hypothyroidsim, Diabetes, Non-Insulin dep HEENT History of HEENT Disorders: No Cancer No Psychosocial History of Psychiatric Problem: Yes Behavioral Health Disorders: Anxiety Integumentary History of Skin or Integumenta: No Blood Transfusions History of Blood Disorders: No Adverse Reaction to a Blood Tr: No (N/A) Family Medical History Family Hx: Diabetes mellitus 19 FATHER Fibromyalgia G8 SISTER Hypertension 19 MOTHER Myocardial infarction 19 FATHER (X2) Review of Systems Constitutional: see HPI, chills, dizziness, fever, malaise, weakness EENTM: no symptoms reported Respiratory: cough Cardiovascular: no symptoms reported Gastrointestinal: loss of appetite, nausea, vomiting Genitourinary: no symptoms reported Musculoskeletal: muscle pain Skin: no symptoms reported Psychiatric/Neurological: No Symptoms Reported All Other Systems Reviewed Negative Unless Noted: Yes Physical Exam Physical Exam Vital Signs Vital Sign - Last 12Hours 03/12/17 03/12/17 16:15 16:25 Temp 104.7 Pulse 133 Resp 18 B/P (MAP) 116/64 (81) Pulse Ox 98 O2 Delivery Room Air Capillary Refill : General Appearance: No Apparent Distress, WD/WN, Chronically ill, Obese Eyes: Bilateral Eye Normal Inspection, Bilateral Eye PERRL HEENT: PERRL/EOMI, Normal ENT Inspection, Pharynx Normal Neck: Full Range of Motion, Normal Inspection, Non Tender, Supple, Carotid Bruit Respiratory: Chest Non Tender, Lungs Clear, Normal Breath Sounds, No Accessory Muscle Use, No Respiratory Distress Cardiovascular: Regular Rate, Rhythm, No Edema, No Gallop, No JVD, No Murmur, Normal Peripheral Pulses Gastrointestinal: Normal Bowel Sounds, No Organomegaly, No Pulsatile Mass, Non Tender, Soft Back: Normal Inspection, No CVA Tenderness, No Vertebral Tenderness Extremity: Normal Capillary Refill, Normal Inspection, Normal Range of Motion, Non Tender, No Calf Tenderness, No Pedal Edema Neurologic/Psychiatric: Alert, Oriented x3, No Motor/Sensory Deficits, Normal Mood/Affect Skin: Normal Color, Warm/Dry Lymphatic: No Adenopathy Results Results/Procedures Lab Laboratory Tests 03/12/17 16:34 03/13/17 04:20 Assessment/Plan Admission Diagnosis Assessment: Severe fever with sepsis and elevated lactic acid due to severe nausea and vomiting and dehydration with influenza A Diabetes mellitus Hypothyroidism Obesity Obstructive sleep apnea Restless leg syndrome Assessment and Plan Plan: Ambulate Hep-locked fluids Home medication Relabel Tamiflu for home use Zofran to pharmacy Clinical Quality Measures DVT/VTE Risk/Contraindication: Risk Factor Score Per Nursin RFS Level Per Nursing on Admit: 2=Moderate ROSANA ARIZMENDI DO Mar 13, 2017 10:45
[2017-03-13] MEDS ORDERED: OSELTAMIVIR 75 MG (TAMIFLU) BOX OF 10 PO SCH (12:30)
[2017-03-13] MEDS ORDERED: rOPINIRole 0.25 MG (REQUIP) TAB PO PRN (14:00)
[2017-03-13] MEDS ORDERED: TROUGH ORDER-PHARMACY XX NR (17:00)
[2017-03-13] MEDS ORDERED: POTASSIUM CITRATE 15 MEQ PO SCH (21:00)
[2017-03-13] MEDS ORDERED: metFORMIN XR 500 MG (GLUCOPHAGE XR) TAB PO SCH (21:00)
[2017-03-13] MEDS ORDERED: PARoxetine 20 MG (PAXIL) TAB PO SCH (21:00)
[2017-03-14] MEDS ORDERED: LEVOTHYROXINE 100 MCG (LEVOTHROID) TAB PO SCH (06:30)
[2017-03-14] MEDS ORDERED: rOPINIRole 0.25 MG (REQUIP) TAB PO SCH (09:00)
[2017-03-14] MEDS ORDERED: NON-FORMULARY MEDICATION 1 EA EA (Liraglutide (Victoza 2-Pak) 1.8 MG) SQ SCH (09:00)
[2017-03-14] MEDS ORDERED: ALLOPURINOL 300 MG (ZYLOPRIM) TAB PO SCH (09:00)
[2017-03-14] MEDS ORDERED: HYDROCHLOROTHIAZIDE 25 MG (HCTZ) TAB PO SCH (09:00)
[2017-03-14] MEDS ORDERED: lisINopril 20 MG (ZESTRIL) TAB PO SCH (09:00)
[2017-03-14] MEDS ORDERED: NON-FORMULARY MEDICATION 1 EA EA (Liraglutide (Victoza 2-Pak) 0.6 MG) SQ SCH (09:00)
[2017-03-15] MEDS ORDERED: VITAMIN D2 50,000 UNITS (1.25 MG) CAP PO SCH (07:00)
== END 2017-03-13 12:35 | disposition home or self-care (01) | DRG 194 ==
LOC: ICU 16:05
PROVIDERS: ADMIT Internal Medicine; ATTEND Internal Medicine
DX: J10.1 Influenza due to other identified influenza virus with other respiratory manifestations (principal); E87.2 Acidosis; E86.0 Dehydration; E87.6 Hypokalemia; E83.42 Hypomagnesemia; G47.33 Obstructive sleep apnea (adult) (pediatric); I10 Essential (primary) hypertension; E11.9 Type 2 diabetes mellitus without complications; Z68.42 Body mass index [BMI] 45.0-49.9, adult; E66.9 Obesity, unspecified; K44.9 Diaphragmatic hernia without obstruction or gangrene; E03.9 Hypothyroidism, unspecified; G25.81 Restless legs syndrome; F41.9 Anxiety disorder, unspecified; Z79.84 Long term (current) use of oral hypoglycemic drugs
CPT/HCPCS: 36415; 71045; 80048; 80053; 83605; 83735; 84100; 84703; 85007; 85025; 85027; 85610; 85730; 87040; 87070; 87081; 87205; 87804

== ENCOUNTER 2017-03-26 10:04 | Emergency (ER) | payer BC ==
[~2017-03-26] VITALS: Ht 172.7 cm; Wt 136.1 kg
[~2017-03-26 10:04] MED LIST changes: +CHOL500049 PO; +METF500T8 PO; +ONDA8TAB9 PO; +OSLT75C PO; +PARO20TA5 PO; +ROPI4TAB21 PO
--- OUTSIDE RECORDS SUMMARY | 2017-03-26 10:08 | XMS REPORT | Continuity of Care Document ---
Author Author [employer] Organization [facility] Address Unknown Phone Unavailable Care Team Providers Care Track Maintainer Name Role Phone [employer] Unavailable Unavailable Problems Medications Allergies, Adverse Reactions, Alerts Immunizations Results Vital Signs Encounters Location Location Details Encounter Type Encounter Number Reason For Visit Attending Provider ADM Date DC Date Status Source OUTPATIENT [id number] MAIRA MCKINNEY 01/26/2017 01/26/2017 Active [facility] O 03/21/2017 Active [facility] OUTPATIENT [id number] MAIRA MCKINNEY 03/21/2017 03/21/2017 Active [facility] Procedures Plan of Care Social History Assessment and Plan Family History Advance Directives Functional Status
--- OUTSIDE RECORDS SUMMARY | 2017-03-26 10:09 | XMS REPORT | Encounter Summary ---
Author Author [facility] Organization [facility] Address Unknown Phone Unavailable Care Team Providers Care Infectious Disease Physician Name Role Phone PCP Unavailable Encounter Details Date Type Department Care Team Description 02/27/2017 Documentation [facility] Lizette Arvizu MD Physicians - Internal [address] [facility] Medicine Medical Office Bldg [address] [place] [address] [address] [facility] [phone] [place] [address] Social History Tobacco Use Types Packs/Day Years Used Date Never Smoker Smokeless Tobacco: Never Used Sex Assigned at Date Recorded Not on file as of this encounter Progress Notes * Lizette Arvizu MD - 02/27/2017 9:40 AM [employer]PER[employer] Received outside records, briefly summarized below, to be scanned into EMR: 02/14/16 Op Note by Jeremi Nettles MD 02/21/16 OVN by Luz RUTHERFORD, cosigned by Jeremi Nettles MD Pt presented for post-op bilateral anterior and posterior ethmoids, bilateral maxillary and bilateral reduction of the inferior turbinates Impression: chronic pansinusitis with nasal congestion, hypertrophy of turbinates, JASON Plan: f/u 2 weeks, ordered new CPAP machine 06/12/16 OVN by Jeremi Nettles MD Pt presented for re-evaluation. Slight weakness on left side of face with numbness starting 4-5 days post-op. Impression: mild left Finley's palsy; recent revision endoscopic sinus surgery Plan: acyclovir or valtrex whichever is cheapest, follow up 3 weeks 06/28/16 OVN by Jeremi Nettles MD Pt presented for facial numbness, improving, and minimal nasal crusting on irrigation. Impression: mild left Finley's palsy - resolving; recent revision endoscopic sinus surgery Plan: no further tx needed 07/18/16 [facility] [place] Pt presented for check up s/p PICC line IV rocephin. Assessment: chronic sinusitis, gout. Plan: discussed labs, albuterol nebulizer for sinus, continue vitamin D 09/10/16 ELIZ[facility]ETH [facility] [place] Pt presented for recurring Staph infection w/ symptoms. Assessment chronic sinusitis, plan: levaquin 500mg. 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 11/2016 KENNEDY negative, rever T3 normal, 25-OH vitamin D low 22 (30-100 ng/ml), CMP with alk phos 121 (normal 30-115 u/l) and otherwise unremarkable, lipid panel obtained, CBCd with Hgb 15.2 (normal 13-15 g/dL) and otherwise normal, free T4 normal, B12 normal, total T3 normal, CRP 1.5 (normal 0-0.5 mg/dL) in this encounter Plan of Treatment Not on fileas of this encounter Visit Diagnoses Not on filein this encounter
--- OUTSIDE RECORDS SUMMARY | 2017-03-26 10:09 | XMS REPORT | Encounter Summary ---
Author Author [facility] Organization [facility] Address Unknown Phone Unavailable Care Team Providers Care Potline Monitor Name Role Phone PCP Unavailable Reason for Visit * Reason Comments Allergies Encounter Details Date Type Department Care Team Description 03/03/2017 Office Visit [facility] Lizette Arvizu MD Wheezing;Recurrent Physicians - Internal [address] sinusitis;Other chronic Medicine Medical Office Bldg 4B rhinitis 4[address] [place] [address] MED [phone] [place] [address] Social History Tobacco Use Types Packs/Day Years Used Date Never Smoker Smokeless Tobacco: Never Used Sex Assigned at Date Recorded Not on file as of this encounter Last Filed Vital Signs Vital Sign Reading Time Taken Blood Pressure 111/74 03/03/2017 10:41 AM BINDER FOLDER OPERATOR Pulse 79 03/03/2017 10:41 AM BINDER FOLDER OPERATOR Temperature 36.8 C (98.2 F) 03/03/2017 10:41 AM BINDER FOLDER OPERATOR Respiratory Rate 16 03/03/2017 10:41 AM BINDER FOLDER OPERATOR Oxygen Saturation - - Inhaled Oxygen - - Concentration Weight 129 kg (284 lb 6.4 oz) 03/03/2017 10:41 AM BINDER FOLDER OPERATOR Height 165.1 cm (5' 5") 03/03/2017 10:41 AM BINDER FOLDER OPERATOR Body Mass Index 47.33 03/03/2017 10:41 AM BINDER FOLDER OPERATOR in this encounter Progress Notes * Lizette Arvizu MD - 03/03/2017 11:00 AM BINDER FOLDER OPERATOR Formatting of this note may be different from the original. Date of Service: 03/03/2017 Subjective: It was a pleasure to see Elena Johnson Omari. As you know, she is a 46 y.o. female who presents to Allergy/Immunology for allergy testing. Her primary care provider is Yael Edgar APRN of [facility] in [place], [place]. History of Present Illness She's felt well since [facility] with no infections, need for antibiotics, trips to ER/ UC, or hospitalizations. She's had no changes on her PMH since [facility]. She's been able to hold levocetirizine for 1 week. She requests aeroallergen testing today. She has a several year h/o perennial nasal congestion, ear itching, and throat itching with no seasonal pattern and symptoms aren't lifelong. She's seen Dr. Campa, an ENT in [place], [place], for symptoms and had allergy skin testing with multiple reported positives and was started on allergy shots. She took weekly shots for 4-5 weeks and then stopped because her PCP was concerned these would cause weight gain. She brings her copy of the allergy vial recipe with her today. Shots were tolerated and too soon for her to tell if they were going to be helpful or not. She's tried fexofenadine and levocetirizine and Mucinex-D for her symptoms which are of variable benefit. She's tried Flonase and possibly either Nasacort or Rhinocort for symptoms in the past. She's currently only on levocetirizine. She's never been on Singulair, other nose sprays, or allergy eye drops before. She has no bothersome itchy/watery eyes. She has wheezing noted objectively during her physical exam today. She denies subjective wheezing, chest tightness, dyspnea, or coughing. She denies any current URI or cold-like viral symptoms. She has a h/o chronic bronchitis as a child manifested by symptom of chronic coughing that was relieved with asthma inhalers of unknown type. 1 year ago, she had a URI with wheezing and was started on albuterol nebulizer machine by her PCP that was helpful. She has no h/o diagnosis of asthma. She has no h/o wheezing, chest tightness, dyspnea, or coughing. She has no h/o all URI's reliably dropping to the chest and causing chest symptoms that outlast the URI symptoms. She has no h/o exercise-induced wheezing, chest tightness, dyspnea, or coughing. She has a h/o JASON on CPAP diagnosed and managed by her ENT Dr. Campa. She's not had spirometry. She doesn't know what type of pneumonia vaccine she got because she forgot to take my vaccine order we mailed to her to the health department. Rhinitis Control Assessment Test 1. During the past week, how often did you have nasal congestion? 1) Extremely often 2) Often 3) Sometimes 4) Rarely 5) Never 2. During the past week, how often did you sneeze? 1) Extremely often 2) Often 3) Sometimes 4) Rarely 5) Never 3. During the past week, how often did you have watery eyes? 1) Extremely often 2) Often 3) Sometimes 4) Rarely 5) Never 4. During the past week, to what extent did your nasal or other allergy symptoms interfere with your sleep? 1) All the time 2) A lot 3) Somewhat 4) A little 5) Not at all 5. During the past week, how often did you avoid any activities (for example visiting a house with a dog or cat, gardening) because of your nasal or other allergy symptoms? 1) Extremely often 2) Often 3) Sometimes 4) Rarely 5) Never 6. During the past week, how well were your nasal or other allergy symptoms controlled? 1) Not at all 2) A little 3) Somewhat 4) Very 5) Completely Total Score: 29 A total score of 21 or less may indicate inadequate control of symptoms. Review of Systems All other systems reviewed and are negative. A 10 point ROS is otherwise negative. Objective: albuterol (PROAIR HFA, VENTOLIN HFA, OR PROVENTIL HFA) 90 mcg/actuation inhaler Inhale 2 puffs by mouth into the lungs every 4 hours as needed for Wheezing or Shortness of Breath. Shake well before use. allopurinol (ZYLOPRIM) 300 mg tablet Take 300 mg by mouth daily. Take with food. amoxicillin/K clavulanate (AUGMENTIN) 875/125 mg tablet Take 1 tablet by mouth every 12 hours. Take with food. budesonide(+) (RHINOCORT AQUA) 32 mcg/actuation nasal spray Apply 1 spray to each nostril as directed daily. CALCIUM CARBONATE/VITAMIN D3 (VITAMIN D-3 PO) Take 50,000 Units by mouth every 7 days. Levocetirizine 5 mg tab Take 5 mg by mouth daily. levothyroxine (SYNTHROID) 100 mcg tablet Take 100 mcg by mouth daily 30 minutes before breakfast. LISINOPRIL PO Take by mouth daily. Indications: 20-25 mg METFORMIN HCL (METFORMIN PO) Take 500 mg by mouth daily. PARoxetine (PAXIL) 20 mg tablet Take 20 mg by mouth daily. potassium citrate(+) (UROCIT-K) 15 mEq tablet Take 15 mEq by mouth twice daily. Take with food. rOPINIRole (REQUIP) 0.5 mg tablet Take 0.5 mg by mouth at bedtime daily. Vitals: 03/03/17 1041 BP: 111/74 Pulse: 79 Resp: 16 Temp: 36.8 C (98.2 F) TempSrc: Oral Weight: 129 kg (284 lb 6.4 oz) Height: 165.1 cm (65") Body mass index is 47.33 kg/(m^2). Physical Exam Constitutional: She appears well-developed and well-nourished. No distress. HENT: Head: Normocephalic and atraumatic. Right Ear: Tympanic membrane, external ear and ear canal normal. Left Ear: Tympanic membrane, external ear and ear canal normal. Nose: Nose normal. No mucosal edema or rhinorrhea. Mouth/Throat: Oropharynx is clear and moist and mucous membranes are normal. No oropharyngeal exudate. Eyes: Conjunctivae are normal. Right eye exhibits no discharge. Left eye exhibits no discharge. No scleral icterus. Neck: Neck supple. Cardiovascular: Normal rate, regular rhythm and normal heart sounds. Pulmonary/Chest: Effort normal. No accessory muscle usage. No tachypnea. No respiratory distress. She has no decreased breath sounds. She has wheezes in the right upper field and the left upper field. She has no rhonchi. She has no rales. Neurological: She is alert. Skin: Skin is warm and dry. No rash noted. She is not diaphoretic. Psychiatric: She has a normal mood and affect. Her behavior is normal. PFT Spirometry 03/03/2017 03/03/2017 Spirometry: Condition PRE-Treatment Post-Bronchodilator FVC (L) 3.38 3.64 FVC % Predicted 90 97 FEV1 (L) 2.76 3.04 FEV1 % Predicted 92 102 FEV1/FVC % 81 84 FEV1/FVC % Predicted 100 103 FEF 25-75 (L/sec) 2.65 3.87 FEF 25-75 % Predicted 90 131 Patient exhaled 3-6 seconds per effort. Flow volume loops appear grossly reproducible with no flattening of inspiratory or expiratory curves. +10% change in FEV1 following bronchodilator. +45% change in WLK81-51% following bronchodilator. Testing Information Controls 1. Dil w/50% Glycerin (HS): 0/0 2. Histamine Phos: 8/50 Trees Jose Francisco, White 1:20 (HS): 0/0 Birch Mix 1:20 (HS): 0/0 Hanover 1:20 (HS): 0/0 Morrow, Mountain 1:20 (HS): 0/0 Sandoval 1:20 (HS): 0/0 Elm, Nauruan 1:20 (HS): 0/0 Maple Mix 1:20 (HS): 0/0 Loveland Mix 1:20 (HS): 0/0 Is[place]boro Mix 1:20 (HS): 0/0 [place] Mix 1:20 (HS): 0/0 Sweetgum 1:20 (HS): 0/0 Milan, Nauruan 1:20 (HS): 0/0 [place], Black 1:20 (HS): 0/0 Grasses Bermuda 10,000 BAU/ml (HS): 0/0 Shaan 1:20 (HS): 0/0 Sweet Vernal 100,000 BAU/ml (HS): 0/0 Ant 100,000 BAU/ml (HS): 0/0 Weeds Careless/Pigweed Mix 1:20 (HS): 0/0 Cocklebur 1:20 (HS): 0/0 Dock/Gananda Mix 1:20 (HS): 0/0 Kochia 1:20 (HS): 0/0 Mcdonald Elder 1:20 (HS): 0/0 Nettle 1:20 (HS): 0/0 Plantain, Cypriot 1:20 (HS): 0/0 Ragweed, Short 1:20 (HS): 0/0 Ragweed, Western 1:20 (HS): 0/0 Brazilian Thistle 1:20 (HS): 0/0 Sagebrush/Mugwort 1:20 (HS): 0/0 Mites and Cockroaches Cockroach, Nauruan 1:10 (HS): 0/0 Cockroach, Persian 1:10 (HS): 0/0 Derm. Farinae 30,000 AU/ml (HS): 0/0 Derm. Pteronyssinus 30,000 AU/ml (HS): 0/0 Animals Cat, AP Pelt 10,000 BAU/ml (HS): 0/0 Dog, AP Hair and Dander 1:10 (HS): 0/0 Feather Mix 1:10 (HS): 0/0 Molds and Fungi Alternaria Tenuis 1:10 (HS): 0/0 Aspergillus Fumigatus 1:10 (HS): 0/0 Curvularia Spiciferas 1:10 (HS): 0/0 Epicoccum Nigrum 1:10 (HS): 0/0 Fusarium Vasinfectum 1:10 (HS): 0/0 Helminthosporium Inters. 1:10 (HS): 0/0 Horm. Cladosporioides 1:10 (HS): 0/0 Mucor Racemosus 1:10 (HS): 0/0 Penicillium Notaturn 1:10 (HS): 0/0 Phoma Herbarum 1:10 (HS): 0/0 Rhizopus Nigricans 1:10 (HS): 0/0 Stemphylium Botryosum 1:10 (HS): 0/0 Histamine Phosphate 10mg/ml (HS): 10/50 Assessment and Plan: Problem Wheezing - H/o chronic bronchitis as a child manifested by symptom of chronic coughing that was relieved with asthma inhalers of unknown type. - 1 year ago, she had a URI with wheezing and was started on albuterol nebulizer machine by her PCP that was helpful. - No h/o diagnosis of asthma. - No h/o wheezing, chest tightness, dyspnea, or coughing. No h/o URI's reliably dropping to the chest and causing chest symptoms that outlast the URI symptoms. No h/o exercise-induced wheezing, chest tightness, dyspnea, or coughing. - H/o JASON on CPAP diagnosed and managed by her ENT Dr. Capma. - She's not had prior spirometry that her or I are aware of today. - She has inspiratory and expiratory wheezes today in bilateral upper lung renner on physical exam although she's subjectively asymptomatic. - Baseline spirometry is normal. Post-bronchodilator spirometry +10% and 280mL improvement in FEV1. - Wheezing cleared following 2 puffs of albuterol with spacer. Patient feels no subjective difference in breathing following albuterol use however she was asymptomatic at baseline. We discussed wheezing may be due to a broad differential of diagnoses, asthma being just 1 among them. Given her h/o childhood chronic bronchitis and URI- induced wheezing as recent as last year, I don't think it's unreasonable for her to have an albuterol inhaler on hand to use as-needed. - Start albuterol 2 puffs with spacer q4h PRN wheezing, chest tightness, cough, or dyspnea. Call if requiring this medication >2 times/week or it doesn't completely relieve her symptoms or last a full 4 hours. - We discussed further evaluation and we'll leave chest imaging and evaluation by Pulmonary on the back burner for now. If she develops symptomatic chest symptoms in the future, we'd have a low threshold for further evaluation. - She may follow up with her PCP office for wheezing if she wishes. Recurrent Sinusitis - H/o of 10 sinus infections per year for the last 5 years. She states at least on one occasion infection was demonstrated objectively by sinus imaging and/or sinus culture, although this wasn't able to be confirmed in outside records from her ENT or PCP. - Given that she has a biological child, I'm not very suspicious of primary ciliary dyskinesia as a potential etiology for her recurrent sinus infections at this time. - 01/2017: c-ANCA/p-ANCA and anti-MPO/anti-PR3 antibodies were negative. Absolute eosinophil count, total IgG, total IgA, total IgM, lymphocyte enumeration by flow cytometry, tetanus IgG antibody, and total hemolytic complement were all within normal limits. She had 9/23 pneumococcal IgG serotypes that were within normal limits. - She received Pneumovax at her PCP office on 02/12/17. - We'll await results of post-vaccination pneumococcal IgG 23-serotypes blood test that she may get completed at lab 4-6 weeks post-vaccination. - She doesn't know what type of pneumonia vaccine she got because she forgot to take my vaccine order we mailed to her to the health department. Advised she sign a release of records from her health department regarding which vaccine she was given as this may change our interpretation of the results. Chronic non-allergic rhinitis - Several year h/o perennial ear & throat itching and recurrent acute episodes of nasal congestion without lifelong symptoms - She reports that she has a h/o allergy skin testing by her ENT physician Dr. Campa with some positives, although we weren't able to obtain there results in her outside records from Dr. Campa. - She's tried Flonase, possibly either Nasacort or Rhinocort, fexofenadine, and levocetirizine for her symptoms. She's not been on these regularly. - She'd like repeat aeroallergen testing. We discussed the potential risks and benefits of skin testing vs blood testing including cost today. - Aeroallergen skin prick testing 03/03/17 was negative to 47 aeroallergens with appropriate controls. We discussed her aeroallergen skin prick testing results. Unfortunately, based on her test results I won't be able to recommend what to avoid in her environment to help her symptoms and we won't be talking about starting allergy shots as a way to help her symptoms. She doesn't appear to have an allergy component to her symptoms based on this test result. - Continue daily sinus rinses using distilled water to mix with saline packets. - She may trial Rhinocort 2 sp en daily for chronic non-allergic rhinitis. A 2 week trial should be sufficient to know if this is helpful or not. We reviewed proper nasal inhaler technique to minimize risk of nosebleeds. Stop use if she develops nosebleeds. - Continue to follow with her ENT Dr. Campa for chronic non-allergic rhinitis. Orders Placed This Encounter albuterol (PROAIR HFA, VENTOLIN HFA, OR PROVENTIL HFA) 90 mcg/actuation inhaler budesonide(+) (RHINOCORT AQUA) 32 mcg/actuation nasal spray Return if symptoms worsen or fail to improve. Thank you for allowing us to participate in the care of this patient. Please feel free to contact us if there are any questions or concerns about the patient. Lizette Arvizu MD Custom Frame Assembler Division of Allergy, Immunology, and Rheumatology Department of Medicine and Department of Pediatrics [facility] in this encounter Miscellaneous Notes * Addendum Note - Reva De Leon LPN - 03/03/2017 2:14 PM BINDER FOLDER OPERATOR Addended by: REVA DE LEON on: 03/03/2017 02:14 PM Modules accepted: Orders in this encounter Plan of Treatment Not on fileas of this encounter Procedures Procedure Name Priority Date/Time Associated Diagnosis Comments PULMONARY FUNCTION 03/04/2017 Results for this STUDY-SCAN 12:37 PM BINDER FOLDER OPERATOR procedure are in the results section. in this encounter Results * PULMONARY FUNCTION STUDY-SCAN (03/04/2017 12:37 PM) Narrative Ordered by an unspecified provider. in this encounter Visit Diagnoses Diagnosis Wheezing Recurrent sinusitis Unspecified sinusitis (chronic) Other chronic rhinitis in this encounter Administered Medications Medication Order MAR Action Action Date Dose Rate Site albuterol (PROAIR HFA, VENTOLIN HFA, or Given 03/03/2017 2 puffs Other PROVENTIL HFA) inhaler 2 puff 11:20 BINDER FOLDER OPERATOR 2 puff, Inhalation, ONCE, 1 dose, 03/03/17 at 1415, Click to add text in this encounter
--- OUTSIDE RECORDS SUMMARY | 2017-03-26 10:09 | XMS REPORT | Encounter Summary ---
Author Author [facility] Organization [facility] Address Unknown Phone Unavailable Care Team Providers Care Slicing Machine Operator/Tender Name Role Phone PCP Unavailable Reason for Visit * Reason Comments Medication Follow-up Encounter Details Date Type Department Care Team Description 03/10/2017 Telephone [facility] Lizette Arvizu MD Medication Follow-up Physicians - Internal [address] [facility] Medicine Medical Office Bldg 4B [address]TH [address]LO[address] [place], [place] [id number] [facility] MED [phone] [place] [address] Social History Tobacco Use Types Packs/Day Years Used Date Never Smoker Smokeless Tobacco: Never Used Sex Assigned at Date Recorded Not on file as of this encounter Miscellaneous Notes * Telephone Encounter - Lizette Arvizu MD - 03/11/2017 12:37 PM DISABILITY ATTORNEY Please refer to telephone call 03/05/17. Ashly has already telephoned the patient with my recommendations to instead start OTC Rhinocort, please see those conversations for further details, as action was already taken on this information from patient's pharmacy. * Telephone Encounter - Leatha Gutiérrez LPN - 03/10/2017 11:36 AM DISABILITY ATTORNEY Patients pharmacy, [facility], sent fax stating budesonide 32 mcg/actuation nasal spray is "Not made any longer", and seeing if Dr. Arvizu would like to change the prescription. Routing to Dr. Arvizu for new medication if appropriate. in this encounter Plan of Treatment Not on fileas of this encounter Visit Diagnoses Not on filein this encounter
--- OUTSIDE RECORDS SUMMARY | 2017-03-26 10:09 | XMS REPORT | Clinical Summary ---
Author Author [facility] Organization [facility] Address Unknown Phone Unavailable Care Team Providers Care Physical Trainer Name Role Phone PCP Unavailable Source Comments Some departments are not documenting in the electronic medical record. If you do not see the information that you expected, contact Release of Information in the Health Information Management department at [phone] for further assistance in locating additional records.[facility] Allergies Active Allergy Reactions Severity Noted Date Comments Ciprofloxacin UNKNOWN Low 01/26/2017 Levofloxacin UNKNOWN Low 01/26/2017 Sulfa (Sulfonamide UNKNOWN Low 01/26/2017 Antibiotics) Current Medications Prescription Sig. Disp. Refills Start End Date Status Date Levocetirizine 5 mg tab Take 5 mg by mouth daily. Active potassium citrate(+) Take 15 mEq by mouth Active (UROCIT-K) 15 mEq tablet twice daily. Take with food. METFORMIN HCL (METFORMIN Take 500 mg by mouth Active PO) daily. levothyroxine (SYNTHROID) Take 100 mcg by mouth Active 100 mcg tablet daily 30 minutes before breakfast. rOPINIRole (REQUIP) 0.5 Take 0.5 mg by mouth at Active mg tablet bedtime daily. LISINOPRIL POIndications: Take by mouth daily. Active 20-25 mg Indications: 20-25 mg CALCIUM CARBONATE/VITAMIN Take 50,000 Units by Active D3 (VITAMIN D-3 PO) mouth every 7 days. PARoxetine (PAXIL) 20 mg Take 20 mg by mouth Active tablet daily. allopurinol (ZYLOPRIM) Take 300 mg by mouth Active 300 mg tablet daily. Take with food. amoxicillin/K clavulanate Take 1 tablet by mouth Active (AUGMENTIN) 875/125 mg every 12 hours. Take with tablet food. albuterol (PROAIR HFA, Inhale 2 puffs by mouth 6.7 g 0 03/03/20 Active VENTOLIN HFA, OR into the lungs every 4 17 PROVENTIL HFA) 90 hours as needed for mcg/actuation inhaler Wheezing or Shortness of Breath. Shake well before use. budesonide(+) (RHINOCORT Apply 1 spray to each 8.6 g 3 03/03/20 Active AQUA) 32 mcg/actuation nostril as directed 17 nasal spray daily. Hospital, Clinic, or Ordered Dose Route Frequency Start End Date Status Other Facility Date Administered Medication albuterol (PROAIR HFA, 2 PUFF IN ONCE 03/03/20 03/03/20 Ended VENTOLIN HFA, or 17 17 PROVENTIL HFA) inhaler 2 puffIndications: Wheezing Active Problems Problem Noted Date Wheezing 03/03/2017 Overview: - H/o chronic bronchitis as a child [...] and managed by her ENT Dr. Campa. - She's not had prior spirometry that [...] Given her h/o childhood chronic bronchitis and URI-induced wheezing as recent as last year, I [...] office for wheezing if she wishes. Recurrent sinusitis 03/03/2017 Overview: - H/o of 10 sinus infections per [...] interpretation of the results. 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 Campa for chronic non-allergic rhinitis. Encounters Date Type Specialty Care Team Description 03/21/2017 Hospital Lab Lizette Arvizu MD Unspecified infectious Encounter disease 03/10/2017 Telephone Allergy,Immunology and Lizette Arvizu MD Medication Follow-up Rheumatology 03/05/2017 Telephone Allergy,Immunology and Lizette Arvizu MD Follow -up Phone Call Rheumatology 03/05/2017 Telephone Allergy,Immunology and Lizette Arvizu MD Medication Follow-up Rheumatology 03/03/2017 Office Visit Allergy,Immunology and Lizette Arvizu MD Wheezing;Recurrent Rheumatology sinusitis;Other chronic rhinitis 02/27/2017 Documentation Allergy,Immunology and Lizette Arvizu MD Rheumatology 02/04/2017 Telephone Allergy,Immunology and Lizette Arvizu MD Lab Results Rheumatology 01/26/2017 Hospital Lab Lizette Arvizu MD Chronic sinusitis, Encounter unspecified 01/26/2017 Office Visit Allergy,Immunology and Lizette Arvizu MD Chronic sinusitis, Rheumatology unspecified location (Primary Dx);Recurrent infections from Last 3 Months Family History Medical History Relation Name Comments Diabetes Father Heart Attack Father Bladder Cancer Mother Cancer Mother Fibromyalgia Sister Immunodeficiency Sister Relation Name Status Comments Father Mother Sister Social History Tobacco Use Types Packs/Day Years Used Date Never Smoker Smokeless Tobacco: Never Used Sex Assigned at Date Recorded Not on file Last Filed Vital Signs Vital Sign Reading Time Taken Blood Pressure 111/74 03/03/2017 10:41 AM LINE TESTER Pulse 79 03/03/2017 10:41 AM LINE TESTER Temperature 36.8 C (98.2 F) 03/03/2017 10:41 AM LINE TESTER Respiratory Rate 16 03/03/2017 10:41 AM LINE TESTER Oxygen Saturation - - Inhaled Oxygen - - Concentration Weight 129 kg (284 lb 6.4 oz) 03/03/2017 10:41 AM LINE TESTER Height 165.1 cm (5' 5") 03/03/2017 10:41 AM LINE TESTER Body Mass Index 47.33 03/03/2017 10:41 AM LINE TESTER Plan of Treatment Health Maintenance Due Date Last Done Comments PHYSICAL (COMPREHENSIVE) 1977 EXAM PERTUSSIS VACCINE 1981 TETANUS VACCINE 05/09/1987 CERVICAL CANCER SCREENING 2000 BREAST CANCER SCREENING 2010 INFLUENZA VACCINE 10/07/2016 Procedures Procedure Name Priority Date/Time Associated Diagnosis Comments PULMONARY FUNCTION 03/04/2017 Results for this STUDY-SCAN 12:37 PM LINE TESTER procedure are in the results section. from Last 3 Months Results * STREPTOCOCCUS PNEUMONIAE IGG AB (23 SEROTYPES) (03/21/2017 11:34 AM) Only the most recent of 2 results within the time period is included. Component Value Ref Range Pneumococcal Ab 1 4.4 Comment: Reference range: >1.3 Unit: ug/mL Type 2-Pneumococcal AB >26.1 Reference range: >1.3 Unit: ug/mL Pneumococcal Ab 3 3.8 Comment: Reference range: >1.3 Unit: ug/mL Pneumococcal Ab 4 0.7 (L) Comment: Reference range: >1.3 Unit: ug/mL Pneumococcal Ab 5 1.4 Comment: Reference range: >1.3 Unit: ug/mL Pneumococcal Ab 8 3.8 Comment: Reference range: >1.3 Unit: ug/mL Pneumococcal Ab 9 12.7 Comment: Reference range: >1.3 Unit: ug/mL Pneumococcal Ab 12 1.4 Comment: Reference range: >1.3 Unit: ug/mL Pneumococcal Ab 14 5.4 Comment: Reference range: >1.3 Unit: ug/mL Type 17F 2.5 Comment: Reference range: >1.3 Unit: ug/mL Pneumococcal Ab 19 4.2 Comment: Reference range: >1.3 Unit: ug/mL Type 20 10.8 Comment: Reference range: >1.3 Unit: ug/mL Type 22F 2.4 Comment: Reference range: >1.3 Unit: ug/mL Pneumococcal Ab 23 2.6 Comment: Reference range: >1.3 Unit: ug/mL Pneumococcal Type 26 (6B) 12.3 Comment: Reference range: >1.3 Unit: ug/mL Type 10A >20.4 Reference range: >1.3 Unit: ug/mL Type 11A 3.7 Comment: Reference range: >1.3 Unit: ug/mL Type 7F >30.2 Reference range: >1.3 Unit: ug/mL Type 15B 6.7 Comment: Reference range: >1.3 Unit: ug/mL Type 18C >19.0 Reference range: >1.3 Unit: ug/mL Type 19A >30.4 Reference range: >1.3 Unit: ug/mL Pneumococcal Ab 9V >20.4 Reference range: >1.3 Unit: ug/mL Type 33F 15.0 Comment: Reference range: >1.3 Unit: ug/mL *This test was developed and its performance characteristics determined by [facility]. It has not been cleared or approved by the U.S. Food and Drug Administration. Testing Performed At: [facility] [address] [place] [id number] CLIA ID: [id number] Specimen Performing Laboratory Blood REFERENCE LAB * PULMONARY FUNCTION STUDY-SCAN (03/04/2017 12:37 PM) Narrative Ordered by an unspecified provider. * T&B CELL PANEL,BLOOD (01/26/2017 11:14 AM) Component Value Ref Range CD3% 82.5 49 - 84 % CD8% 21.6 10 - 40 % CD4-Blood 56.5 28 - 63 % CD16/56% 7.1 4 - 25 % [id number]-[id number] 9.7 6 - 27 % CD3 Count 2044 600 - 2990 UL CD8 Count 534 120 - 1320 UL CD4 Count 1400 440 - 2160 UL CD16/56 Count 175 90 - 640 UL CD19 Count 240 100 - 700 UL Specimen Performing Laboratory Blood [facility] MAIN [facility] [address] [place] [address] * TETANUS TOXOID IGG AB (01/26/2017 11:14 AM) Component Value Ref Range Tetanus Positive REFERENCE VALUE Vaccinated: Positive (>=0.01 IU/mL) Unvaccinated: Negative (< 0.01 IU/mL) [facility], [address] [place] [address] Tetanus IgG Value >2.24 Unit: IU/mL ADDITIONAL INFORMATION This test was developed and its performance characteristics determined by [facility] in a manner consistent with CLIA requirements. This test has not been cleared or approved by the U.S. Food and Drug Administration. [facility], [address] [place] [address] Specimen Performing Laboratory Blood REFERENCE LAB * MPO/VA-3 (01/26/2017 11:14 AM) Component Value Ref Range Myeloperoxidase AB <0.2 Reference range: <0.4 (Negative) Unit: U [facility] Serine Protease3 AB <0.2 Reference range: <0.4 (Negative) Unit: U [facility] Specimen Performing Laboratory Blood REFERENCE LAB * ANTI-NEUT CYTO AB (ANCA/PANCA) (01/26/2017 11:14 AM) Component Value Ref Range C-ANCA <20,NEGATIVE TITER P-ANCA <20,NEGATIVE TITER Specimen Performing Laboratory Blood MAIN LAB [address] [place] [address] * CBC AND DIFF (01/26/2017 11:14 AM) Component Value Ref Range White Blood Cells 9.3 4.5 - 11.0 K/UL RBC 5.18 (H) 4.0 - 5.0 M/UL Hemoglobin 15.3 (H) 12.0 - 15.0 GM/DL Hematocrit 44.7 36 - 45 % MCV 86.3 80 - 100 FL MCH 29.6 26 - 34 PG MCHC 34.3 32.0 - 36.0 G/DL RDW 13.6 11 - 15 % Platelet Count 433 (H) 150 - 400 K/UL MPV 7.2 7 - 11 FL Neutrophils 60 41 - 77 % Lymphocytes 26 24 - 44 % Monocytes 8 4 - 12 % Eosinophils 5 0 - 5 % Basophils 1 0 - 2 % Absolute Neutrophil Count 5.70 1.8 - 7.0 K/UL Absolute Lymph Count 2.40 1.0 - 4.8 K/UL Absolute Monocyte Count 0.70 0 - 0.80 K/UL Absolute Eosinophil Count 0.40 0 - 0.45 K/UL Absolute Basophil Count 0.10 0 - 0.20 K/UL Specimen Performing Laboratory Blood MAIN LAB [address] [place] [address] * IMMUNOGLOBULINS-IGA,IGG,IGM (01/26/2017 11:14 AM) Component Value Ref Range IgG 895 762 - 1488 MG/DL IgA 311 70 - 390 MG/DL IgM 53 38 - 328 MG/DL Specimen Performing Laboratory Blood MAIN LAB [address] [place] [address] * COMPLEMENT, TOTAL (CH50) (01/26/2017 11:14 AM) Component Value Ref Range Complement CH50 89 41 - 95 U/mL Comment: CH50 INTERPRETATION <41 LOW 41-95 NORMAL >95 HIGH Specimen Performing Laboratory Blood MAIN LAB [address] [place] [address] from Last 3 Months
--- OUTSIDE RECORDS SUMMARY | 2017-03-26 10:09 | XMS REPORT | Encounter Summary ---
Author Author [facility] Organization [facility] Address Unknown Phone Unavailable Care Team Providers Care Facing Baster Jumpbasting Name Role Phone PCP Unavailable Encounter Details Date Type Department Care Team Description 03/21/2017 Hospital Clinlab Lizette Arvizu MD Unspecified infectious Encounter [address] [place] [address] Medical Office [address] [place] [address] [phone] Social History Tobacco Use Types Packs/Day Years Used Date Never Smoker Smokeless Tobacco: Never Used Sex Assigned at Date Recorded Not on file as of this encounter Medications at Time of Discharge Medication Sig. Disp. Refills Start Date End Date albuterol (PROAIR HFA, Inhale 2 puffs by mouth 6.7 g 0 03/03/2017 VENTOLIN HFA, OR into the lungs every 4 PROVENTIL HFA) 90 hours as needed for mcg/actuation inhaler Wheezing or Shortness of Breath. Shake well before use. allopurinol (ZYLOPRIM) Take 300 mg by mouth 300 mg tablet daily. Take with food. amoxicillin/K clavulanate Take 1 tablet by mouth (AUGMENTIN) 875/125 mg every 12 hours. Take with tablet food. budesonide(+) (RHINOCORT Apply 1 spray to each 8.6 g 3 03/03/2017 AQUA) 32 mcg/actuation nostril as directed nasal spray daily. CALCIUM CARBONATE/VITAMIN Take 50,000 Units by D3 (VITAMIN D-3 PO) mouth every 7 days. Levocetirizine 5 mg tab Take 5 mg by mouth daily. levothyroxine (SYNTHROID) Take 100 mcg by mouth 100 mcg tablet daily 30 minutes before breakfast. LISINOPRIL POIndications: Take by mouth daily. 20-25 mg Indications: 20-25 mg METFORMIN HCL (METFORMIN Take 500 mg by mouth PO) daily. PARoxetine (PAXIL) 20 mg Take 20 mg by mouth tablet daily. potassium citrate(+) Take 15 mEq by mouth (UROCIT-K) 15 mEq tablet twice daily. Take with food. rOPINIRole (REQUIP) 0.5 Take 0.5 mg by mouth at mg tablet bedtime daily. as of this encounter Plan of Treatment Not on fileas of this encounter Results * STREPTOCOCCUS PNEUMONIAE IGG AB (23 SEROTYPES) (03/21/2017 11:34 AM) Component Value Ref Range Pneumococcal Ab 1 [...] developed and its performance characteristics determined by [facility]. It has not been cleared or approved by the U.S. Food and Drug Administration. Testing Performed At: [facility] [employer] [address] CLIA ID: [id number] Specimen Performing Laboratory Blood REFERENCE LAB in this encounter Visit Diagnoses Diagnosis Recurrent infections Unspecified infectious and parasitic diseases in this encounter Admitting Diagnoses Diagnosis Unspecified infectious disease in this encounter
--- OUTSIDE RECORDS SUMMARY | 2017-03-26 10:09 | XMS REPORT | Encounter Summary ---
Author Author [facility] Organization [facility] Address Unknown Phone Unavailable Care Team Providers Care Secondary Connector Armature Name Role Phone PCP Unavailable Reason for Visit * Reason Comments Follow-up Phone Call Encounter Details Date Type Department Care Team Description 03/05/2017 Telephone [facility] Lizette Arvizu MD Follow- up Phone Call Physicians - Internal [address] [facility] Medicine Medical Office Bldg [address] [place] [address] [address] [facility] MED [phone] [place] [address] Social History Tobacco Use Types Packs/Day Years Used Date Never Smoker Smokeless Tobacco: Never Used Sex Assigned at Date Recorded Not on file as of this encounter Miscellaneous Notes * Telephone Encounter - Ashly Cobos RN - 03/05/2017 9:49 AM MEDICAL CLERICAL ASSISTANT Contacted the [facility] Department at to obtain vaccination information. Per the Health Department, patient was given the Pneumovax 23 on 02/12/17. Routing to Dr. Arvizu to notify. * Telephone Encounter - Lizette Arvizu MD - 03/05/2017 9:19 AM MEDICAL CLERICAL ASSISTANT We received records from [facility] regarding vaccinations. These will scanned into EMR. On 02/12/17 patient received Pneumococcal Shot, x1, described as "Pneumonia". There's no indication on the outside records whether she received 13-valent Prevnar or 23-valent Pneumovax. Could we contact the health department to try to get record of which specific vaccine she received? Thank you. in this encounter Plan of Treatment Not on fileas of this encounter Visit Diagnoses Not on filein this encounter
--- OUTSIDE RECORDS SUMMARY | 2017-03-26 10:09 | XMS REPORT | Encounter Summary ---
Author Author [facility] Organization [facility] Address Unknown Phone Unavailable Care Team Providers Care Senior Designer/Art Director Name Role Phone PCP Unavailable Encounter Details Date Type Department Care Team Description 01/26/2017 Hospital Clinlab Lizette Arvizu MD Chronic sinusitis, Encounter [address] [place] [address] Medical Office [address] [place] [address] [phone] Social History Tobacco Use Types Packs/Day Years Used Date Never Smoker Smokeless Tobacco: Never Used Sex Assigned at Date Recorded Not on file as of this encounter Medications at Time of Discharge Medication Sig. Disp. Refills Start Date End Date allopurinol (ZYLOPRIM) Take 300 mg by mouth 300 mg tablet daily. Take with food. amoxicillin/K clavulanate Take 1 tablet by mouth (AUGMENTIN) 875/125 mg every 12 hours. Take with tablet food. CALCIUM CARBONATE/VITAMIN Take 50,000 Units by D3 [...] on fileas of this encounter Results * CBC AND DIFF (01/26/2017 11:14 AM) [...] K/UL Specimen Performing Laboratory Blood MAIN LAB [address] [place] [address] * MPO/NH-3 (01/26/2017 11:14 AM) Component Value Ref Range Myeloperoxidase AB <0.2 Reference range: <0.4 (Negative) Unit: U [facility] Serine Protease3 AB <0.2 Reference range: <0.4 (Negative) Unit: U [facility] Specimen Performing Laboratory Blood REFERENCE LAB * ANTI-NEUT CYTO AB (ANCA/PANCA) (01/26/2017 11:14 AM) Component Value Ref Range C-ANCA <20,NEGATIVE TITER P-ANCA <20,NEGATIVE TITER Specimen Performing Laboratory Blood MAIN LAB [address] [place] [address] * STREPTOCOCCUS PNEUMONIAE IGG AB (23 SEROTYPES) (01/26/2017 11:14 AM) Component Value Ref Range Pneumococcal Ab 1 0.6 (L) Comment: Reference range: >1.3 Unit: ug/mL Type 2-Pneumococcal AB 0.8 (L) Comment: Reference range: >1.3 Unit: ug/mL Pneumococcal Ab 3 2.7 Comment: Reference range: >1.3 Unit: ug/mL Pneumococcal Ab 4 0.2 (L) Comment: Reference range: >1.3 Unit: ug/mL Pneumococcal Ab 5 0.8 (L) Comment: Reference range: >1.3 Unit: ug/mL Pneumococcal Ab 8 0.4 (L) Comment: Reference range: >1.3 Unit: ug/mL Pneumococcal Ab 9 0.7 (L) Comment: Reference range: >1.3 Unit: ug/mL Pneumococcal Ab 12 <0.1 Reference range: >1.3 Unit: ug/mL (L) Pneumococcal Ab 14 2.9 Comment: Reference range: >1.3 Unit: ug/mL Type 17F 0.2 (L) Comment: Reference range: >1.3 Unit: ug/mL Pneumococcal Ab 19 1.2 (L) Comment: Reference range: >1.3 Unit: ug/mL Type 20 1.3 (L) Comment: Reference range: >1.3 Unit: ug/mL Type 22F 1.6 Comment: Reference range: >1.3 Unit: ug/mL Pneumococcal Ab 23 1.5 Comment: Reference range: >1.3 Unit: ug/mL Pneumococcal Type 26 (6B) 0.5 (L) Comment: Reference range: >1.3 Unit: ug/mL Type 10A 0.3 (L) Comment: Reference range: >1.3 Unit: ug/mL Type 11A 1.1 (L) Comment: Reference range: >1.3 Unit: ug/mL Type 7F 3.9 Comment: Reference range: >1.3 Unit: ug/mL Type 15B 2.5 Comment: Reference range: >1.3 Unit: ug/mL Type 18C 1.7 Comment: Reference range: >1.3 Unit: ug/mL Type 19A 10.7 Comment: Reference range: >1.3 Unit: ug/mL Pneumococcal Ab 9V 3.7 Comment: Reference range: >1.3 Unit: ug/mL Type 33F 1.0 (L) Comment: Reference range: >1.3 Unit: ug/mL *This test was developed and its performance characteristics determined by [facility]. It has not been cleared or approved by the U.S. Food and Drug Administration. Testing Performed At: [facility] [address] [facility] RADHA Mccarty [id number] CLIA ID: [id number] Specimen Performing Laboratory Blood REFERENCE LAB * T&B CELL PANEL,BLOOD (01/26/2017 11:14 AM) Component Value Ref Range CD3% 82.5 49 - 84 % CD8% 21.6 10 - 40 % CD4-Blood 56.5 28 - 63 % CD16/56% 7.1 4 - 25 % FF81-Csedu 9.7 6 - 27 % CD3 Count 2044 600 - 2990 UL CD8 Count 534 120 - 1320 UL CD4 Count 1400 440 - 2160 UL CD16/56 Count 175 90 - 640 UL CD19 Count 240 100 - 700 UL Specimen Performing Laboratory Blood [facility] MAIN [facility] [address] [place] [address] * COMPLEMENT, TOTAL (CH50) (01/26/2017 11:14 AM) Component Value Ref Range Complement CH50 89 41 - 95 U/mL Comment: CH50 INTERPRETATION <41 LOW 41-95 NORMAL >95 HIGH Specimen Performing Laboratory Blood MAIN LAB [address] [place] [address] * TETANUS TOXOID IGG AB (01/26/2017 11:14 AM) Component Value Ref Range Tetanus Positive REFERENCE VALUE Vaccinated: Positive (>=0.01 IU/mL) Unvaccinated: Negative (< 0.01 IU/mL) [facility], [address] [place] [address] Tetanus IgG Value >2.24 Unit: IU/mL ADDITIONAL INFORMATION This test was developed and its performance characteristics determined by [facility] in a manner consistent with CLIA requirements. This test has not been cleared or approved by the U.S. Food and Drug Administration. [facility], [address] [place] [address] Specimen Performing Laboratory Blood REFERENCE LAB * IMMUNOGLOBULINS-IGA,IGG,IGM (01/26/2017 11:14 AM) Component Value Ref Range IgG 895 762 - 1488 MG/DL IgA 311 70 - 390 MG/DL IgM 53 38 - 328 MG/DL Specimen Performing Laboratory Blood MAIN LAB [address] [place] [address] in this encounter Visit Diagnoses Diagnosis Chronic sinusitis, unspecified location Recurrent infections Unspecified infectious and parasitic diseases in this encounter Admitting Diagnoses Diagnosis Chronic sinusitis, unspecified Unspecified infectious disease in this encounter
--- OUTSIDE RECORDS SUMMARY | 2017-03-26 10:09 | XMS REPORT | Encounter Summary ---
Author Author [facility] Organization [facility] Address Unknown Phone Unavailable Care Team Providers Care Cabinetmaker Apprentice Name Role Phone PCP Unavailable Reason for Visit * Reason Comments Lab Results Encounter Details Date Type Department Care Team Description 02/04/2017 Telephone [facility] Maira Arvizu MD Lab Results Physicians - Internal [address] [facility] Medicine Medical Office Bldg [address] [place] [address] [address] [facility] MED [phone] [place] [address] Social History Tobacco Use Types Packs/Day Years Used Date Never Smoker Smokeless Tobacco: Never Used Sex Assigned at Date Recorded Not on file as of this encounter Miscellaneous Notes * Telephone Encounter - Ashly Cobos RN - 02/05/2017 12:57 PM PRODUCT ENGINEERING MANAGER Vaccine orders, OVN and lab results mailed to patients home address on file. * Addendum Note - Maira Arvizu MD - 02/05/2017 12:56 PM PRODUCT ENGINEERING MANAGER Addended by: MAIRA ARVIZU on: 02/05/2017 12:56 PM Modules accepted: Orders * Telephone Encounter - Maira Arvizu MD - 02/05/2017 12:56 PM PRODUCT ENGINEERING MANAGER Orders placed * Telephone Encounter - Ashly Cobos RN - 02/05/2017 9:02 AM PRODUCT ENGINEERING MANAGER Spoke with patient and reviewed lab results below. Pt requested the pneumovax order be mailed to her home address along with her OVN and lab results so she can provide that information to her PCP who she has an appointment with in 2 weeks. Pt states she will have the pneumocoocal labs drawn at 4 weeks post her vaccination. Routing to Dr. Arvizu for pneumovax and lab orders. * Telephone Encounter - Maira Arvizu MD - 02/04/2017 5:12 PM PRODUCT ENGINEERING MANAGER Please let Ms Salcido know that her total hemolytic complement level was normal ; tetanus IgG antibody was appropriately positive; lymphocyte subset enumeration by flow cytometry was entirely normal; and immunoglobulins G, A, and M were all normal. Her antibodies to evaluate for possible autoimmune vasculitis diseases that can effect the sinuses, c-ANCA/p-ANCA and anti-MPO/anti-PR3 antibodies, were all negative. Her CBC with differential was normal from an Allergy/Immunology perspective. However, she had elevated platelets 433 (normal 150-400) and elevated hemoglobin 15.3 (normla 12-15) that I'd recommend she follow up with her PCP about regarding if she needs further evaluation for these from her PCP's perspective. She had 9/23 pneumococcal serotypes that were above the reference range. I'd recommend she receive the 23-valent pneumonia vaccine - Pneumovax - and repeat this blood test in 4 weeks after vaccination to evaluate for immune response to the vaccine. She can get the Pneumovax at a local health care facility or PCP office if she'd prefer instead of driving back to [facility] for the vaccine, but it' s important for the test that the vaccine specifically be the 23-valent Pneumovax vaccine and not the other pneumonia vaccines available. We can fax her office visit note and results to her PCP if she requests. * Telephone Encounter - Aslhy Cobos RN - 02/04/2017 4:16 PM PRODUCT ENGINEERING MANAGER Pt LVM requesting lab results from 01/26/17. Routing to Dr. Arvizu for review and recommendations. in this encounter Plan of Treatment Not [...] developed and its performance characteristics determined by [facility]. It has not been cleared or approved by the U.S. Food and Drug Administration. Testing Performed At: [facility] [address] [place] [address] [facility] WilliamRADHA Aadme [id number] CLIA ID: [id number] Specimen Performing Laboratory Blood REFERENCE LAB in this encounter Visit Diagnoses Diagnosis Recurrent infections - Primary Unspecified infectious and parasitic diseases in this encounter
--- OUTSIDE RECORDS SUMMARY | 2017-03-26 10:09 | XMS REPORT | Encounter Summary ---
Author Author [facility] Organization [facility] Address Unknown Phone Unavailable Care Team Providers Care Creative Developer Name Role Phone PCP Unavailable Reason for Visit * Reason Comments Medication Follow-up Encounter Details Date Type Department Care Team Description 03/05/2017 Telephone [facility] Lizette Arvizu MD Medication Follow-up Physicians - Internal [address] [facility] Medicine Medical Office Bldg 4B [address]LO[address] [place], [place] [id number] [facility] MED [phone] [place] [address] Social History Tobacco Use Types Packs/Day Years Used Date Never Smoker Smokeless Tobacco: Never Used Sex Assigned at Date Recorded Not on file as of this encounter Miscellaneous Notes * Telephone Encounter - Ashly Cobos RN - 03/05/2017 8:06 AM LITHOGRAPHIC PROOFER APPRENTICE Spoke with patient and advised her to begin Rhinocort 1-2 sprays each nostril once daily. Pt provided with instructions for use and advised this medication is OTC. Pt voiced understanding and has no questions at this time. * Telephone Encounter - Lizette Arvizu MD - 03/05/2017 7:56 AM LITHOGRAPHIC PROOFER APPRENTICE Received fax from [facility] in [place], [place] that budesonide nose spray isn't available to order. Please let Ms. Salcido know that this nose spray is available OTC as Rhinocort. She may use 1-2 sprays each nostril once daily as we discussed during her office visit, pointing the nozzle outwards to minimize the risk of nosebleeds. Thank you. in this encounter Plan of Treatment Not on fileas of this encounter Visit Diagnoses Not on filein this encounter
--- OUTSIDE RECORDS SUMMARY | 2017-03-26 10:10 | XMS REPORT | Encounter Summary ---
Author Author [facility] Organization [facility] Address Unknown Phone Unavailable Care Team Providers Care Junior Network Engineer Name Role Phone PCP Unavailable Reason for Visit * Reason Comments Sinus Infection * Consult, Test & Treat (Routine) Status Reason Specialty Diagnoses / Referred By Referred To Procedures Contact Contact No Auth Needed Allergy,Immunology Diagnoses Isidro Edgar Im Allergy and Rheumatology allergies NIA Jaramillo [address] [place], [place] MED OFFICE [facility] [address] [place], [place] Phone: [phone] Phone: Encounter Details Date Type Department Care Team Description 01/26/2017 Office Visit [facility] Lizette Arvizu MD Chronic sinusitis, Physicians - Internal [address] [facility] unspecified location Medicine Medical Office Bldg 4B (Primary Dx);Recurrent [address] [address] infections [address] [facility] MED [phone] [place] [address] Social History Tobacco Use Types Packs/Day Years Used Date Never Smoker Smokeless Tobacco: Never Used Sex Assigned at Date Recorded Not on file as of this encounter Last Filed Vital Signs Vital Sign Reading Time Taken Blood Pressure 145/86 01/26/2017 9:30 AM PIPE JEEPER Pulse 90 01/26/2017 9:30 AM PIPE JEEPER Temperature 36.8 C (98.3 F) 01/26/2017 9:30 AM PIPE JEEPER Respiratory Rate - - Oxygen Saturation - - Inhaled Oxygen - - Concentration Weight 129.3 kg (285 lb) 01/26/2017 9:30 AM PIPE JEEPER Height 165.1 cm (5' 5") 01/26/2017 9:30 AM PIPE JEEPER Body Mass Index 47.43 01/26/2017 9:30 AM PIPE JEEPER in this encounter Instructions * Patient Instructions - Lizette Arivzu MD - 01/26/2017 9:20 AM PIPE JEEPER Formatting of this note may be different from the original. Please sign a release of records from Dr. Campa's office and Dr. Edgar's office. Patient Instruction Sheet for Allergy Skin Testing Skin Test: Skin tests are methods of testing for allergic antibodies. A test consists of introducing small amounts of the suspected substance, or allergen, into the skin and noting the development of a positive reaction (which consists of a welt or hive with surrounding redness). The results are read at 15 to 20 minutes after the application of the allergen. The skin test methods are: Prick Method: The skin is pricked with a very short needle coated with a drop of allergen (ex ragweed pollen). Intradermal Method: This method consists of injecting small amounts of an allergen into the superficial layers of the skin. Interpreting the clinical significance of skin tests requires skillful correlation of the test results with the patients clinical history. Positive tests indicate the presence of allergic antibodies and are not necessarily correlated with clinical symptoms. You may be tested to important (location) airborne allergens and possibly some foods. These may include trees, grasses, weeds, molds, dust mites, animal danders, and some foods. The skin testing generally takes 45 minutes. Prick ( also known as percutaneous) tests are usually performed on your back but may also be performed on your arms. Intradermal skin tests may be performed if the prick skin tests are negative and are performed on your arms. If you have a specific allergic sensitivity to one of the allergens, a red, raised , itchy bump (caused by histamine release into the skin) will appear on your skin within 15 to 20 minutes. These positive reactions will gradually disappear over a period of 30 to 60 minutes and, typically, no treatment is necessary for this itchiness. Occasionally, local swelling at a test site will begin 4 to 8 hours after the skin tests are applied, particularly at sites of intradermal testing. These reactions are not serious, do not indicate a meaningful allergy, and will disappear over the next couple days or so. They should be reported to your physician at your next visit. You may be scheduled for skin testing to antibiotics, local anesthetics, venoms, or other biological agents. The same guidelines apply. If you have any questions whether or not you are using an antihistamine, you may ask the nurse or the doctor. In some instances a longer period of time off these medications may be necessary. If your condition requires continuous administration of any of the above medications, or if you have a question about a certain medication, please notify us so we may discuss this with you and determine whether alternative tests are indicated. Skin testing will be administered at this medical facility with a medical physician present since occasional reactions may require immediate therapy. These reactions may consist of any or all of the following symptoms: itchy eyes , nose, or throat; nasal congestion; runny nose; tightness in the throat or chest; increased wheezing; lightheadedness; faintness; nausea and vomiting; hives; generalized itching; and shock, the latter under extreme circumstances. Please let the physician and nurse know if you are: 1) as allergy testing may be post-poned until after . 2) Taking beta blockers, medications that may make the treatment of the reaction to skin testing more difficult. Please note that these reactions rarely occur but in the event a reaction would occur, the staff is fully trained and emergency equipment is available. After skin testing , you will consult with your physician, who will make further recommendations regarding your treatment Please do not cancel your appointment since the time set aside for your skin test is exclusively yours. If for any reason you need to change your skin test appointment, please give us at least 48 hours notice, due to the length of time scheduled for skin testing, a last minute change results in a loss of valuable time that another patient might have utilized. SKIN TESTING DRUG GUIDELINES DIAGNOSTIC SKIN TESTS CANNOT BE DONE IF PATIENTS ARE TAKING THE FOLLOWING MEDICATIONS You must consult with referring physician or coldfusion prior to stopping any medications Medications to Withhold Length of Time to Withhold Topical anti-inflammatory or steroid (creams, lotions, gels, ointments, or solutions) Do not apply the morning of test Long-lasting antihistamines Cetirizine (Zyrtec), fexofenadine (Sudha), desloratadine (Clarinex), levocetirizine (Xyzal), loratadine (Claritin), hydroxyzine (Atarax/Vistaril) Withhold 7 days prior to testing Other antihistamines Actifed (chlorpheneramine), Dimetapp (brompheniramine) and Benadryl ( diphenhydramine) Withhold 5 days prior to skin testing Nasal and eye medications Patanase/Pataday/Patanol (olopatadine), Astepro/Optivar/Astelin/Dymista ( azelastine) Withhold 2 days prior to skin testing Biologics Xolair (omalizumab) Withhold for 6 months prior to skin testing Miscellaneous Zantac (ranitidine), Pepcid (famotidine), and Tagamet (cimetidine) Withhold for 1 day prior to skin testing Psychiatric Medications Amitriptyline (Elavil), clomipramine (Anafranil), desipramine (Norpramin), doxepin (Sinequan), imipramine (Tofranil), nortriptyline (Pamelor), protriptyline (Vivactil), and trimipramine (Surmontil) have antihistaminic activity. Withhold for 2 weeks prior to skin testing Nausea Medications Promethazine Dramamine (dimenhydrinate) Withhold for 5 days prior to skin testing Muscle Relaxants Flexeril (cyclobenzaprine) Withhold 2 weeks prior to skin testing If there are any questions whether or not you are using an antihistamine, you may ask your referring doctor or one of our allergists. In some instances a longer period of time off these medications may be necessary. If the condition requires continuous administration of any of the above medications, or if you have a question about a certain medication, please notify us so we may discuss this and determine whether alternative tests are indicated. THE FOLLOWING MEDICATIONS CAN BE TAKEN PRIOR TO SKIN TESTING Nasal Steroids Flonase/Veramyst (fluticasone), Rhinocort (budesonide), Nasonex (mometasone), Nasacort (triamcinolone), Omnaris/Zetonna (ciclesonide), QNASL (beclomethasone) , and Nasarel (flunisolide) Asthma Inhalers Inhaled steroids Albuterol/Atrovent rescue inhalers Albuterol/Atrovent nebulizers Leukotriene Receptor Antagonists Singulair (montelukast) Accolate (zafirlukast) Zyflo (zileuton) *Should be avoided prior to challenges Theophylline Dank-Dur,T-Phyl, Uniphyl, Dank-24 Prednisone *Should be avoided prior to challenges in this encounter Progress Notes * Lizette Arvizu MD - 01/26/2017 9:20 AM PIPE JEEPER Formatting of this note may be different from the original. Date of Service: 01/26/2017 Subjective: It was a pleasure to see Elena Salcido. As you know, she is a 46 y.o. female who presents to Allergy/Immunology for evaluation of sinusitis. Her primary care provider is Dr. Edgar and Ella Edgar APRN of [place], [place] and she was referred by Ella Edgar APRN. History of Present Illness For the past 5 years she's had issues with recurrent sinusitis thought to be mostly infections by her other health care providers, which resolve with antibiotic treatments, but symptoms return when she stops antibiotics. For these symptoms's she's seen Dr. Campa, an ENT physician in [place], [place]. She saw him about 5 years ago. He did allergy skin testing with some positives to unremembered items, thought to be aeroallergens. He was planning to start her on allergy shots however her PCP recommended to not do allergy shots due to concerns that they'd cause her to gain weight. Dr. Campa evaluated her from a surgical perspective and she was told that she wasn't a surgical candidate for sinus surgery at that time. About 1-1.5 years ago, she returned to see Dr. Campa for persistent and recurrent sinus symptoms. He did some CT scans of her sinuses and told her she was a surgical candidate. About 1 year ago, she had an unknown type of sinus surgery where she thinks he "cleaned everything out" however her symptoms didn' t improve. She continued to require antibiotics at the same frequency as she did before sinus surgery. Dr. Campa repeated the CT sinuses and she had another sinus surgery, it's not clear what kind of surgery was performed the 2nd time. She then returned for follow up and saw Dr. Campa again and was diagnosed with a "staph" infection in her sinuses. She states her PCP diagnosed her with repeated "staph" infection in her body, though it's not clear by what test this diagnosis was made. She thinks perhaps by a nasal swab? Or maybe a sputum culture? She didn't report diagnosis of pneumonia. She then had repeat sputum culture or nose swab spring 2016 and was told the staph infection was gone. Her PCP placed a PICC line in the patient and prescribed the patient a daily IV antibiotic to take for 1 week. This was recently completed. It's not clear when, but at some point she does think that she tried a prolonged course of antibiotic for at least 3 weeks to treat for chronic sinusitis by both her ENT physician and her PCP. This was not helpful at all for her symptoms as they still returned when the antibiotic was stopped. Her PCP also recently changed her previously used daily fexofenadine to levocetirizine and this made no difference in her sinus symptoms. She has no h/o hospitalizations for any infections. She has no h/o meningitis, osteomyelitis, sepsis, imaging-proven pneumonia, bacterial conjunctivitis as an adult, Strep pharyngitis as an adult, or recurrent or chronic fungal skin/nail/oropharyngeal infections. She had a PICC line and IV antibiotics for 1 week to treat "staph infection in her body" in spring 2016. She's required no other IV antibiotics to treat any infection. She thinks she's had a total of 3 ear infections since she's been an adult. She thinks she gets on average 10 sinus infections per year that require treatment with antibiotics. She thinks these have been objectively demonstrated on CT imaging and cultures per her ENT. She thinks her sinus infections often require 2-3 rounds of antibiotics to resolve. She has a half-sister with CVID and she has 1 biological child of her own. She thinks her PCP Dr. Edgar did some type of test for primary immune deficiency in the past 1-2 years and it came back normal. She doesn't know what this test was and doesn't have these records with her today. She's never had pneumonia vaccine. She tolerated all childhood vaccines. She's had a dry/itchy scalp the last couple of months but no known rashes. She reports a h/o chronic bronchitis as a child, manifested by coughing, but she states that she outgrew this. She denies any h/o asthma. She states she was put on asthma inhalers last winter when she had wheezing associated with a URI. She thinks this was albuterol nebulizer machine and that it was helpful. She has no other h/o URI's dropping to the chest and causing wheezing, chest tightness, dyspnea, or coughing that outlasts the URI symptoms. She has no h/o exercise-induced chest symptoms. She feels certain she doesn't have asthma. She has a h/o JASON on CPAP machine nightly. She has a several year h/o ear & throat itching that's perennial with no seasonal pattern and no exacerbating factors. She denies any h/o itchy/watery eyes, runny/stuffy nose, or sneezing. She endorses having dry crusty nose at the beginning of a sinus infection. She denies any h/o nosebleeds. For symptoms , she uses 2 humidifiers at home and takes Mucinex on occasion. She uses a Netipot. She has a h/o headaches for which she follows with a Chiropractor and feels he/ she is helpful for headaches. Rhinitis Control Assessment Test 1. During the [...] Somewhat 4) Very 5) Completely Total Score: 27 A total score of 21 or less may indicate inadequate control of symptoms. Asthma Control Test for people 12 years and older 1. In the past 4 weeks, how much of the time did your asthma keep you from getting as much done at work, school or at home? 1- All of the time 2- Most of the time 3- Some of the time 4- A little of the time 5- None of the time 2. During the past 4 weeks, how often have you had shortness of breath? 1- More than once a day 2- Once a day 3- 3-6 times a week 4- Once or twice a week 5- Not at all 3. During the past 4 weeks, how often did your asthma symptoms (wheezing, coughing, shortness of breath, chest tightness or pain) wake you up at night or earlier than usual in the morning? 1- 4 or more night a week 2- 2-3 nights a week 3- Once a week 4- Once or twice 5- Not at all 4. During the past 4 weeks, how often have you used your rescue inhaler or nebulizer medication (such as albuterol)? 1- 3 or more times per day 2- 1 or 2 times per day 3- 2 or 3 times per week 4- Once a week or less 5- Not at all 5. How would you rate your asthma control during the past 4 weeks? 1- Not controlled at all 2- Poorly controlled 3- Somewhat controlled 4- Well controlled 5- Completely controlled ACT SCORE=25 (A score of 19 or less might suggest that the patient's asthma is not as well controlled as it could be) Review of Systems Constitutional: Positive for chills, fatigue and fever. Eyes: Positive for discharge. Neurological: Positive for headaches. Psychiatric/Behavioral: Positive for sleep disturbance. All other systems reviewed and are negative. Objective: allopurinol (ZYLOPRIM) 300 mg tablet Take 300 mg by mouth daily. Take with food. amoxicillin/K clavulanate (AUGMENTIN) 875/125 mg tablet Take 1 tablet by mouth every 12 hours. Take with food. CALCIUM CARBONATE/VITAMIN D3 (VITAMIN D-3 PO) Take [...] mg by mouth at bedtime daily. Vitals: 01/26/17 0930 BP: 145/86 Pulse: 90 Temp: 36.8 C (98.3 F) TempSrc: Oral Weight: 129.3 kg (285 lb) Height: 165.1 cm (65") Body mass index is 47.43 kg/(m^2). Physical Exam Constitutional: She appears well-developed [...] rhythm and normal heart sounds. Pulmonary/Chest: Effort normal and breath sounds normal. No respiratory distress. She has no wheezes. She has no rales. Neurological: She is alert. Skin: Skin is warm and dry. No rash noted. She is not diaphoretic. Psychiatric: She has a normal mood and affect. Her behavior is normal. Assessment and Plan: 1. Recurrent infections. - Given her report of 10 sinus infections per year, that have at least on one occasion been demonstrated objectively by sinus imaging and/or sinus culture, and requiring back to back rounds of antibiotics to clear these infections, I think this patient may be having more frequent or severe infections than what would be expected for an otherwise healthy adult, based on guidelines from the [employer] for Primary Immune Deficiency, and guidelines from the UpToDate article "Approach to the adult with recurrent infections" authored by Dr. Cecilio Rodgers and literature current through July 2015. - Given that she has a biological child, I'm not very suspicious of primary ciliary dyskinesia as a potential etiology for her recurrent sinus infections at this time. - I think further evaluation for primary immune deficiency is appropriate given her reported infection history. We'll obtain some blood tests for this today. - Given her report of new onset sinus disease in the past 5 years with nasal crusting, I think it's reasonable to obtain c-ANCA/p-ANCA, anti-MPO/anti-PR3 antibodies, and eosinophil count today to further evaluate for EGPA/GPA/MPA disorders. - We'll obtain records from Dr. Campa ENT and Dr. Edgar PCP today. 2. H/o allergic rhinitis - Her symptoms of perennial ear & throat itching only without any h/o itchy/' watery eyes, rhinorrhea/nasal congestion, sneezing, or seasonal pattern aren't very suggestive of allergic rhinoconjunctivitis, however she reports that she has a h/o allergy skin testing by her ENT physician with some positives. - She'd like repeat aeroallergen testing today however she's currently taking antihistamines. - We may pursue aeroallergen skin testing per her request at her follow up visit if she's able to avoid medications that can interfere with skin testing. Orders Placed This Encounter IMMUNOGLOBULINS-IGA,IGG,IGM TETANUS TOXOID IGG AB COMPLEMENT, TOTAL (CH50) T&B CELL PANEL,BLOOD STREPTOCOCCUS PNEUMONIAE IGG AB (23 SEROTYPES) ANTI-NEUT CYTO AB (ANCA/PANCA) MPO/NC-3 CBC AND DIFF today Return in about 5 weeks (around 03/03/2017). Thank you for allowing us to participate in the care of this patient. Please feel free to contact us if there are any questions or concerns about the patient. Lizette Arvizu MD Engine Test Cell Technician Division of Allergy, Immunology, and Rheumatology Department of Medicine and Department of Pediatrics [facility] in this encounter Plan of Treatment Not [...] K/UL Specimen Performing Laboratory Blood MAIN LAB [address] [place] [address] * MPO/NC-3 (01/26/2017 11:14 AM) Component Value Ref Range Myeloperoxidase AB <0.2 Reference range: <0.4 (Negative) Unit: [facility] Serine Protease3 AB <0.2 Reference range: <0.4 (Negative) Unit: [facility] Specimen Performing Laboratory Blood REFERENCE LAB * ANTI-NEUT CYTO AB (ANCA/PANCA) (01/26/2017 11:14 AM) Component Value Ref Range C-ANCA <20,NEGATIVE TITER P-ANCA <20,NEGATIVE TITER Specimen Performing Laboratory Blood MAIN LAB [address] [place] [address] * STREPTOCOCCUS PNEUMONIAE IGG AB (23 SEROTYPES) [...] developed and its performance characteristics determined by [employer]. It has not been cleared or approved by the U.S. Food and Drug Administration. Testing Performed At: [employer] [address] [place] [address] [place] [address] CLIA ID: [id number] Specimen Performing Laboratory Blood REFERENCE LAB * T&B CELL PANEL,BLOOD (01/26/2017 11:14 AM) Component Value Ref Range CD3% 82.5 49 - 84 % CD8% 21.6 10 - 40 % CD4-Blood 56.5 28 - 63 % CD16/56% 7.1 4 - 25 % FU10-Rewpd 9.7 6 - 27 % CD3 Count 2044 600 - 2990 UL CD8 Count 534 120 - 1320 UL CD4 Count 1400 440 - 2160 UL CD16/56 Count 175 90 - 640 UL CD19 Count 240 100 - 700 UL Specimen Performing Laboratory Blood MAIN LAB [address] [place] [id number] * COMPLEMENT, TOTAL (CH50) (01/26/2017 11:14 AM) Component Value Ref Range Complement CH50 89 41 - 95 U/mL Comment: CH50 INTERPRETATION <41 LOW 41-95 NORMAL >95 HIGH Specimen Performing Laboratory Blood MAIN LAB [address] [place] [address] * TETANUS TOXOID IGG AB (01/26/2017 11:14 AM) Component Value Ref Range Tetanus Positive REFERENCE VALUE Vaccinated: Positive (>=0.01 IU/mL) Unvaccinated: Negative (< 0.01 IU/mL) [facility], [address] [place] [place] [address] Tetanus IgG Value >2.24 Unit: IU/mL ADDITIONAL INFORMATION This test was developed and its performance characteristics determined by [facility] in a manner consistent with CLIA requirements. This test has not been cleared or approved by the U.S. Food and Drug Administration. [facility], [address] [place] [place] [address] Specimen Performing Laboratory Blood REFERENCE LAB * IMMUNOGLOBULINS-IGA,IGG,IGM (01/26/2017 11:14 AM) Component Value Ref Range IgG 895 762 - 1488 MG/DL IgA 311 70 - 390 MG/DL IgM 53 38 - 328 MG/DL Specimen Performing Laboratory Blood MAIN LAB [address] [place] [id number] in this encounter Visit Diagnoses Diagnosis Chronic sinusitis, unspecified location - Primary Recurrent infections Unspecified infectious and parasitic diseases in this encounter
--- OUTSIDE RECORDS SUMMARY | 2017-03-26 10:12 | XMS REPORT | Continuity of Care Document ---
Author Author [facility] Organization [facility] Address Unknown Phone Unavailable Allergies Active Description Code Type Severity Reaction Onset Reported/Identified Relationship to Patient Clinical Status Yes ciprofloxacin [id number] Drug Allergy Mild SLEEPLESSNESS 05/26/2016 Yes Sulfa (Sulfonamide Antibiotics) [id number] Drug Allergy Mild SLEEPLESSNESS 05/26/2016 Yes erythromycin base [id number] Drug Allergy Unknown N/A 05/26/2016 Medications There is no data. Problems Date Dx Coded Attending Type Code Diagnosis Diagnosed By 04/17/2009 Ot 250.00 04/17/2009 Ot 327.23 04/17/2009 Ot 401.9 01/18/2013 BASSAM OSORIO MD Ot 789.1 01/18/2013 BASSAM OSORIO MD Ot 790.6 04/15/2013 VAUGHN HUDDLESTON MD Ot 592.1 04/15/2013 VAUGHN HUDDLESTON MD Ot 789.04 06/02/2013 CANDI SAUCEDO Ot 592.1 06/02/2013 CANDI SAUCEDO Ot 724.5 06/08/2013 KRYSTIAN GRIMES MD Ot 592.0 08/16/2013 KRYSTIAN GRIMSE MD Ot 592.0 10/05/2013 KRYSTIAN GRIMES MD Ot 592.9 01/31/2014 ADAN AUGUSTIN MD Ot 250.00 01/31/2014 CHARLI TOWNSEND, ADAN Ot 272.0 01/31/2014 ADAN AUGUSTIN MD Ot 278.01 01/31/2014 ADAN AUGUSTIN MD Ot 327.23 01/31/2014 ADAN AUGUSTIN MD Ot 401.9 01/31/2014 ADAN AUGUSTIN MD Ot 553.1 01/31/2014 ADAN AUGUSTIN MD Ot V85.42 02/21/2014 ADAN AUGUSTIN MD Ot 553.1 02/21/2014 CHARLI TOWNSEND, TAKAAKI Ot 592.0 07/22/2014 KARO TOWNSEND, VAUGHN A [...] Hoyos Ot 789.1 09/23/2014 DEVON TOWNSEND, BASSAM Hoyos Ot 592.0 09/23/2014 CANDI SAUCEDO Ot 592.0 09/23/2014 CANDI SAUCEDO Ot 724.5 09/23/2014 SYDNEY TOWNSEND, KRYSTIAN A Ot 592.1 09/23/2014 SYDNEY TOWNSEND, KRYSTIAN A Ot V72.63 09/23/2014 SYDNEY TOWNSEND, KRYSTIAN A Ot V72.81 09/23/2014 SYDNEY TOWNSEND, KRYSTIAN A Ot V72.83 09/23/2014 SYDNEY TOWNSEND, KRYSTIAN A Ot V72.84 09/23/2014 SYDNEY TOWNSEND, KRYSTIAN A Ot 592.0 09/23/2014 CHARLI TOWNSEND, ADAN Ot 530.81 09/23/2014 CHARLI TOWNSEND, NETOKI Ot 553.3 09/23/2014 SYDNEY TOWNSEND, KRYSTIAN A [...] Ot 553.1 09/23/2014 CHARLI TOWNSEND, ADAN Ot V72.63 09/23/2014 CHARLI TOWNSEND, ADAN Ot V74.8 09/23/2014 SYDNEY TOWNSEND, KRYSTIAN A Ot 592.9 10/11/2014 SYDNEY TOWNSEND, KRYSTIAN A Ot 592.9 11/07/2014 SYDNEY TOWNSEND, KRYSTIAN A Ot 592.0 12/04/2014 SYDNEY TOWNSEND, KRYSTIAN A Ot 592.9 12/04/2014 SYDNEY TOWNSEND, KRYSTIAN A Ot N20.9 12/11/2014 Ot 465.9 12/11/2014 Ot 250.00 12/11/2014 Ot 599.0 12/11/2014 Ot 473.9 12/11/2014 DEVON TOWNSEND, BASSAM Hoyos Ot V76.12 12/11/2014 DEVON TOWNSEND, BASSAM Hoyos Ot 789.1 12/11/2014 BASSAM OSORIO MD Ot 592.0 12/11/2014 CANDI SAUCEDO Ot 592.0 12/11/2014 CANDI SAUCEDO Ot 724.5 12/11/2014 SYDNEY TOWNSEND, KRYSTIAN Rosenthal Ot 592.1 12/11/2014 SYDNEY TOWNSEND, KRYSTIAN Ariadna Ot V72.63 12/11/2014 SYDNEY TOWNSEND, KRYSTIAN A [...] 592.0 12/11/2014 Ot 592.9 12/11/2014 CHARLI TOWNSEND, ESTEPHANIAAAKI Ot 530.81 12/11/2014 CHARLI TOWNSEND, ESTEPHANIAAAKI Ot V45.86 12/11/2014 CHARLI TOWNSEND, TAKAAKI Ot 553.1 12/11/2014 CHARLI TOWNSEND, NETOKI Ot 592.0 12/11/2014 CHARLI TOWNSEND, ADAN Ot 553.1 12/11/2014 CHARLI TOWNSEND, ESTEPHANIAAAKI Ot V72.63 12/11/2014 CHARLI TOWNSEND, TAKAAKI Ot V74.8 12/11/2014 SYDNEY TOWNSEND, KRYSTIAN A Ot 592.9 12/11/2014 SYDNEY TOWNSEND, KRYSTIAN A Ot 592.0 12/11/2014 SYDNEY TOWNSEND, KRYSTIAN A Ot V72.84 12/11/2014 SYDNEY TOWNSEND, KRYSTIAN A Ot 592.9 01/01/2015 SYDNEY [...] SYDNEY TOWNSEND, KRYSTIAN Rosenthal Ot 592.9 02/11/2016 KRYSTIAN GRIMES MD Ot N20.9 URINARY CALCULUS, UNSPECIFIED 02/11/2016 STAN [...] J32.2 CHRONIC ETHMOIDAL SINUSITIS 02/15/2016 STAN BALDWIN MD Ot 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 TURBINATES 2016 STAN BALDWIN MD Ot J32.9 CHRONIC SINUSITIS, UNSPECIFIED 05/09/2016 STAN BALDWIN MD Ot J32.9 CHRONIC SINUSITIS, UNSPECIFIED 05/22/2016 STAN BALDWIN MD Ot J32.9 CHRONIC SINUSITIS, UNSPECIFIED 05/26/2016 Ot 592.9 URINARY CALCULUS NOS 05/26/2016 SYDNEY TOWNSEND, KRYSTIAN A Ot 592.9 05/26/2016 SYDNEY TOWNSEND, KRYSTIAN A Ot N20.9 URINARY CALCULUS, UNSPECIFIED 05/27/2016 STAN BALDWIN MD Ot 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 MAXILLARY SINUSITIS 05/27/2016 STAN BALDWIN MD Ot J33.9 NASAL POLYP, UNSPECIFIED 05/27/2016 STAN BALDWIN MD Ot Z01.818 ENCOUNTER FOR OTHER PREPROCEDURAL EXAMIN 05/30/2016 STAN BALDWIN MD Ot 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 MAXILLARY SINUSITIS 05/30/2016 STAN BALDWIN MD Ot J32.2 CHRONIC ETHMOIDAL SINUSITIS 06/11/2016 STAN BALDWIN MD Ot 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 MAXILLARY SINUSITIS 06/11/2016 STAN BALDWIN MD Ot J32.2 CHRONIC ETHMOIDAL SINUSITIS 07/15/2016 UCHE ESQUIVEL [employer] BALANCER Ot J32.9 CHRONIC SINUSITIS, UNSPECIFIED 07/15/2016 UCHE ESQUIVEL [employer] BALANCER Ot J32.9 CHRONIC SINUSITIS, UNSPECIFIED 07/16/2016 UCHE ESQUIVEL R[employer]OR BALANCER Ot J32.9 CHRONIC SINUSITIS, UNSPECIFIED 07/17/2016 UCHE ESQUIVEL R[employer]OR BALANCER Ot J32.9 CHRONIC SINUSITIS, UNSPECIFIED 07/18/2016 DARREN ESQUIVELRICIA Rickie ROTOR BALANCER Ot J32.9 CHRONIC SINUSITIS, UNSPECIFIED 07/19/2016 ESQUIVEL, UCHE L ROTOR BALANCER Ot J32.9 CHRONIC SINUSITIS, UNSPECIFIED 07/19/2016 ESQUIVEL, UCHE L ROTOR BALANCER Ot J32.9 CHRONIC SINUSITIS, UNSPECIFIED 07/20/2016 ESQUIEVL, UCHE L ROTOR BALANCER Ot J32.9 CHRONIC SINUSITIS, UNSPECIFIED 07/20/2016 ESQUIVEL, UCHE L ROTOR BALANCER Ot J32.9 CHRONIC SINUSITIS, UNSPECIFIED 07/21/2016 ESQUIVEL, UCHE L ROTOR BALANCER Ot J32.9 CHRONIC SINUSITIS, UNSPECIFIED 08/20/2016 ESQUIVEL, UCHE L ROTOR BALANCER Ot J32.9 CHRONIC SINUSITIS, UNSPECIFIED 10/08/2016 ESQUIVEL, UCHE L ROTOR BALANCER Ot J32.9 CHRONIC SINUSITIS, UNSPECIFIED 10/28/2016 SYDNEY TOWNSEND, KRYSTIAN Rosenthal Ot Z87.442 PERSONAL HISTORY OF URINARY CALCULI 10/28/2016 SYDNEY TOWNSEND, KRYSTIAN Rosenthal Ot Z87.442 PERSONAL HISTORY OF URINARY CALCULI 02/20/2017 UCHE ESQUIVEL [employer] BALANCER Ot Z12.31 ENCNTR SCREEN MAMMOGRAM FOR MALIGNANT NE 03/13/2017 ENRRIQUE DO, HEIDI Ot E03.9 HYPOTHYROIDISM, UNSPECIFIED 03/13/2017 ENRRIQUE DO, HEIDI Ot E11.9 TYPE 2 DIABETES MELLITUS WITHOUT COMPLIC 03/13/2017 ENRRIQUE NEWELL, HEIDI Ot E66.9 OBESITY, UNSPECIFIED 03/13/2017 ENRRIQUE DO, HEIDI Ot E83.42 HYPOMAGNESEMIA 03/13/2017 OSUNA DO, HEIDI Ot E86.0 DEHYDRATION 03/13/2017 OSUNA DO, HEIDI Ot E87.2 ACIDOSIS 03/13/2017 OSUNA DO, HEIDI Ot E87.6 HYPOKALEMIA 03/13/2017 ENRRIQUE DO HEIDI Ot F41.9 ANXIETY DISORDER, UNSPECIFIED 03/13/2017 OSUNA DO, HEIDI Ot G25.81 RESTLESS LEGS SYNDROME 03/13/2017 OSUNAFREDO NEWELL HEIDI Ot G47.33 OBSTRUCTIVE SLEEP APNEA (ADULT) (PEDIATR 03/13/2017 ENRRIQUE NEWELL HEIDI Ot I10 ESSENTIAL (PRIMARY) HYPERTENSION 03/13/2017 HEIDI OSUNA DO Ot J10.1 FLU DUE TO OTH IDENT INFLUENZA VIRUS W O 03/13/2017 HEIDI OSUNA DO Ot K44.9 DIAPHRAGMATIC HERNIA WITHOUT OBSTRUCTION 03/13/2017 HEIDI OSUNA DO Ot Z68.42 BODY MASS INDEX (BMI) 45.0-49.9, ADULT 03/13/2017 HEIDI OSUNA DO Ot Z79.84 [facility] (CURRENT) USE OF ORAL HYPOGLYC Procedures There is no data. Results Test Result Range CD3+CD4+ (T4 helper) [...] creatinine measurement (mass/time) 1548 % 600-1800 Clinical sampler first review of results SEE FOOTNOTE NRG Complete blood count (CBC) with automated white blood cell (WBC) differential - 02/11/16 12:20 Blood leukocytes automated count (number/volume) 10.8 10*3/uL 4.3-11.0 Blood erythrocytes automated count (number/volume) 4.90 10*6/uL 4.35-5.85 Venous blood hemoglobin measurement (mass/volume) 14.4 [...] Automated blood platelet mean volume measurement 9.3 [foz_us] 7.4-10.4 Automated blood neutrophils/100 leukocytes 57 % [...] Serum or plasma sodium measurement (moles/volume) 141 mmol/L 135-145 Serum or plasma potassium measurement (moles/volume) 3.4 mmol/L 3.6-5.0 Serum or plasma chloride measurement (moles/volume) 103 mmol/L 98-107 Carbon dioxide 28 mmol/L 21-32 Serum or plasma anion gap determination (moles/volume) 10 mmol/L 5-14 Serum or plasma urea nitrogen measurement (mass/volume) 10 mg/dL 7-18 Serum or plasma creatinine measurement (mass/volume) 0.67 mg/dL 0.60-1.30 Serum or plasma urea nitrogen/creatinine mass [...] human chorionic gonadotropin (hCG) measurement NEGATIVE NEGATIVE Methicillin resistant Staphylococcus aureus (MRSA) screening culture - 07:54 Methicillin resistant Staphylococcus aureus (MRSA) screening culture NEG NRG Complete blood count (CBC) with automated white blood cell (WBC) differential - 05/30/16 07:55 Blood leukocytes automated count (number/volume) 7.7 10*3/uL 4.3-11.0 Blood erythrocytes automated count (number/volume) 5.18 10*6/uL 4.35-5.85 Venous blood hemoglobin measurement (mass/volume) 15.1 [...] Automated blood platelet mean volume measurement 9.4 [foz_us] 7.4-10.4 Automated blood neutrophils/100 leukocytes 52 % [...] Serum or plasma sodium measurement (moles/volume) 141 mmol/L 135-145 Serum or plasma potassium measurement (moles/volume) 3.7 mmol/L 3.6-5.0 Serum or plasma chloride measurement (moles/volume) 102 mmol/L 98-107 Carbon dioxide 26 mmol/L 21-32 Serum or plasma anion gap determination (moles/volume) 13 mmol/L 5-14 Serum or plasma urea nitrogen measurement (mass/volume) 11 mg/dL 7-18 Serum or plasma creatinine measurement (mass/volume) 0.73 mg/dL 0.60-1.30 Serum or plasma urea nitrogen/creatinine mass ratio 15 NRG Serum or plasma creatinine measurement with calculation of estimated glomerular filtration rate > NRG Serum or plasma glucose measurement (mass/volume) 122 mg/dL 70-105 Serum or plasma calcium measurement (mass/volume) 9.3 mg/dL 8.5-10.1 Bacteria identification in isolate by anaerobe culture - 05/30/16 10:03 Bacteria identification in isolate by anaerobe culture NOANA NRG Gram stain microscopy - 05/30/16 10:03 GRAM STAIN RESULT OCCASIONAL GRAM POSITIVE COCCI NRG Bacteria identification in wound by culture - 05/30/16 10:03 Bacteria identification in wound by culture [id number] [facility] FREE TEXT EXTERNAL SENSITIVITY REPORTED 06/01/16 8:10 NRG QUANTITY OF GROWTH Moderate Growth [facility] Bacterial susceptibility panel - 05/30/16 10:03 Oxacillin susceptibility test by minimum inhibitory concentration < = NRG Gentamicin susceptibility test by minimum inhibitory concentration < = NRG Clindamycin susceptibility test by minimum inhibitory concentration R NRG Erythromycin susceptibility test by minimum inhibitory concentration >= NRG Trimethoprim/sulfamethoxazole susceptibility test by minimum inhibitoryconcentration <= NRG Vancomycin susceptibility test by minimum inhibitory concentration < = NRG Levofloxacin susceptibility test by minimum inhibitory concentration <= NRG Rifampin susceptibility test by minimum inhibitory concentration <= NRG Tetracycline susceptibility test by minimum inhibitory concentration <= NRG Fungus culture - 05/30/16 10:03 FUNGUS REPORT NO FUNGUS GROWTH OBSERVED NRG Sputum Gram stain - 07/11/16 12:00 GRAM STAIN SPUTUM AND MIXED BACTERIAL JACY NRG Bacterial sputum culture - 07/11/16 12:00 FREE TEXT EXTERNAL SENSITIVITY REPORTED 07/13/16 10:10 NRG QUANTITY OF GROWTH Abundant Growth NRG FREE TEXT ENTRY 2 PLUS NORMAL JACY NR Bacterial sputum culture [id number] [facility] Bacterial susceptibility panel - 07/11/16 12:00 Oxacillin susceptibility test by minimum inhibitory concentration 0.5 NRG Gentamicin susceptibility test by minimum inhibitory concentration < = NRG Clindamycin susceptibility test by minimum inhibitory concentration R NRG Erythromycin susceptibility test by minimum inhibitory concentration >= NRG Trimethoprim/sulfamethoxazole susceptibility test by minimum inhibitoryconcentration <= NRG Vancomycin susceptibility test by minimum inhibitory concentration 1 NRG Levofloxacin susceptibility test by minimum inhibitory concentration <= NRG Rifampin susceptibility test by minimum inhibitory concentration <= NRG Tetracycline susceptibility test by minimum inhibitory concentration <= NRG Comprehensive metabolic panel - 07/18/16 12:00 Serum or plasma sodium measurement (moles/volume) 141 mmol/L 135-145 Serum or plasma potassium measurement (moles/volume) 3.8 mmol/L 3.6-5.0 Serum or plasma chloride measurement (moles/volume) 103 mmol/L 98-107 Carbon dioxide 31 mmol/L 21-32 Serum or plasma anion gap determination (moles/volume) 7 mmol/L 5-14 Serum or plasma urea nitrogen measurement (mass/volume) 9 mg/dL 7-18 Serum or plasma creatinine measurement (mass/volume) 0.64 mg/dL 0.60-1.30 Serum or plasma urea nitrogen/creatinine mass ratio 14 NRG Serum or plasma creatinine measurement with calculation of estimated glomerular filtration rate > [facility] Serum or plasma glucose measurement (mass/volume) 107 mg/dL 70-105 Serum or plasma calcium measurement (mass/volume) 9.2 mg/dL 8.5-10.1 Serum or plasma total bilirubin measurement (mass/volume) 0.3 mg/dL 0.1-1.0 Serum or plasma alkaline phosphatase measurement (enzymatic activity/volume) 107 U/L 40-136 Serum or plasma aspartate aminotransferase measurement (enzymatic activity/ volume) 20 U/L 5-34 Serum or plasma alanine aminotransferase measurement (enzymatic activity/volume ) 28 U/L 0-55 Serum or plasma protein measurement (mass/volume) 6.5 g/dL 6.4-8.2 Serum or plasma albumin measurement (mass/volume) 3.7 g/dL 3.2-4.5 Complete blood count (CBC) with automated white blood cell (WBC) differential - 07/18/16 12:00 Blood leukocytes automated count (number/volume) 7.4 10*3/uL 4.3-11.0 Blood erythrocytes automated count (number/volume) 4.75 10*6/uL 4.35-5.85 Venous blood hemoglobin measurement (mass/volume) 13.8 g/dL 11.5-16.0 Blood hematocrit (volume fraction) 41 % 35-52 Automated erythrocyte mean corpuscular volume 87 [foz_us] 80-99 Automated erythrocyte mean corpuscular hemoglobin (mass per erythrocyte) 29 pg 25-34 Automated erythrocyte mean corpuscular hemoglobin concentration measurement ( mass/volume) 33 g/dL 32-36 Automated erythrocyte distribution width ratio 13.9 % 10.0-14.5 Automated blood platelet count (count/volume) 310 10*3/uL 130-400 Automated blood platelet mean volume measurement 9.1 [foz_us] 7.4-10.4 Automated blood neutrophils/100 leukocytes 59 % 42-75 Automated blood lymphocytes/100 leukocytes 27 % 12-44 Blood monocytes/100 leukocytes 7 % 0-12 Automated blood eosinophils/100 leukocytes 7 % 0-10 Automated blood basophils/100 leukocytes 1 % 0-10 Blood neutrophils automated count (number/volume) 4.3 10*3 1.8-7.8 Blood lymphocytes automated count (number/volume) 2.0 10*3 1.0-4.0 Blood monocytes automated count (number/volume) 0.5 10*3 0.0-1.0 Automated eosinophil count 0.5 10*3/uL 0.0-0.3 Automated blood basophil count (count/volume) 0.1 10*3/uL 0.0-0.1 Erythrocyte sedimentation rate by westergren method - 07/18/16 12:00 Erythrocyte sedimentation rate by westergren method 44 mm 0-20 Aerobic bacterial nasal culture - 07/18/16 12:10 QUANTITY OF GROWTH Scant Growth NR FTX;REPORTABLE MIXED COLONY GROWTH [facility] Aerobic bacterial nasal culture [id number] [facility] Sputum Gram stain - 07/19/16 10:30 GRAM STAIN SPUTUM AND MIXED BACTERIAL JACY [facility] Bacterial sputum culture - 07/19/16 10:30 FREE TEXT EXTERNAL SENSITIVITY REPORTED 07/21 16:10 NR QUANTITY OF GROWTH Scant Growth [facility] MRSA AGAR Screening test for MRSA is NEGATIVE (Final to follow) [facility] FREE TEXT ENTRY 2 PLUS NORMAL JACY [facility] Bacterial sputum culture [id number] [facility] Bacterial susceptibility panel - 07/19/16 10:30 Oxacillin susceptibility test by minimum inhibitory concentration < = NRG Gentamicin susceptibility test by minimum inhibitory concentration < = NRG Clindamycin susceptibility test by minimum inhibitory concentration R NRG Erythromycin susceptibility test by minimum inhibitory concentration >= NRG Trimethoprim/sulfamethoxazole susceptibility test by minimum inhibitoryconcentration <= NRG Vancomycin susceptibility test by minimum inhibitory concentration < = NRG Levofloxacin susceptibility test by minimum inhibitory concentration <= NRG Rifampin susceptibility test by minimum inhibitory concentration <= NRG Tetracycline susceptibility test by minimum inhibitory concentration <= NRG CD3+CD4+ (T4 helper) cells/100 cells in blood - 10/23/16 16:34 Timed urine calcium measurement (mass/volume) 264 % < 250 Urine oxalate detection 31 < 45 Urine uric acid measurement (mass/volume) 390 % < 700 Urine citrate measurement (mass/volume) 1176 % > 320 Urine pH measurement 6.9 5.5-7.0 24 hour urine specimen volume measurement 1.36 % > 2.00 Sodium urate/total calculus mass ratio by infrared spectroscopy 142 % < 200 Sulfites [presence] in urine by test strip 12 < 30 Urine phosphate measurement (mass/volume) 919 % < 1100 Urine magnesium measurement (mass/volume) 151 % > 60 Urine calcium oxalate measurement 2.08 < 2.00 Urine calcium phosphate crystals detection by computer assisted method 5.63 < 2.00 24 hour urine sodium urate (saturation fraction) 2.43 < 2.00 Triple phosphate crystals detection in urine sediment by light microscopy 15.21 < 75.00 24 hour urine uric acid (saturation fraction) 0.18 < 2.00 Urine ammonium measurement 23 % 14-62 Urine potassium measurement 61 % 19-135 24 hour urine creatinine measurement (mass/time) 1654 % 600-1800 Clinical sampler first review of results See Below [facility] Influenza virus A and B antigen detection - 03/12/17 16:30 CALL POSITIVES (F1 HELP) CALLED TO [facility] IN ICU AT 1714 NR FLU RESULT POSITIVE FOR INFLUENZA A ANTIGEN, NEG FOR B ANTIGEN, BY IA [facility] Methicillin resistant Staphylococcus aureus (MRSA) screening culture - 16:30 Methicillin resistant Staphylococcus aureus (MRSA) screening culture NEG [facility] Complete blood count (CBC) with automated white blood cell (WBC) differential - 03/12/17 16:34 Blood leukocytes automated count (number/volume) 10.2 10*3/uL 4.3-11.0 Blood erythrocytes automated count (number/volume) 5.32 10*6/uL 4.35-5.85 Venous blood hemoglobin measurement (mass/volume) 15.5 g/dL 11.5-16.0 Blood hematocrit (volume fraction) 41 % 35-52 Automated erythrocyte mean corpuscular volume 77 [foz_us] 80-99 Automated erythrocyte mean corpuscular hemoglobin (mass per erythrocyte) 29 pg 25-34 Automated erythrocyte mean corpuscular hemoglobin concentration measurement ( mass/volume) 38 g/dL 32-36 Automated erythrocyte distribution width ratio 13.1 % 10.0-14.5 Automated blood platelet count (count/volume) 304 10*3/uL 130-400 Automated blood platelet mean volume measurement 8.7 [foz_us] 7.4-10.4 Automated blood neutrophils/100 leukocytes 81 % 42-75 Automated blood lymphocytes/100 leukocytes 7 % 12-44 Blood monocytes/100 leukocytes 12 % 0-12 Automated blood eosinophils/100 leukocytes 0 % 0-10 Automated blood basophils/100 leukocytes 1 % 0-10 Blood neutrophils automated count (number/volume) 8.2 10*3 1.8-7.8 Blood lymphocytes automated count (number/volume) 0.7 10*3 1.0-4.0 Blood monocytes automated count (number/volume) 1.2 10*3 0.0-1.0 Automated eosinophil count 0.0 10*3/uL 0.0-0.3 Automated blood basophil count (count/volume) 0.1 10*3/uL 0.0-0.1 PT panel in platelet poor plasma by coagulation assay - 03/12/17 16:34 Prothrombin time (PT) in platelet poor plasma by coagulation assay 14.2 s 12.2-14.7 INR in platelet poor plasma or blood by coagulation assay 1.1 0.8-1.4 Activated partial thromboplastin time (aPTT) in platelet poor plasma bycoagulation assay - 03/12/17 16:34 Activated partial thromboplastin time (aPTT) in platelet poor plasma bycoagulation assay 33 s 24-35 Blood manual differential performed detection - 03/12/17 16:34 Blood monocytes/100 leukocytes 6 % NRG Manual blood segmented neutrophils/100 leukocytes 86 % NRG Blood band neutrophils/100 leukocytes 1 % NRG Manual blood lymphocytes/100 leukocytes 3 % NRG Manual eosinophils/100 leukocytes in nose 0 % NRG Manual blood basophils/100 leukocytes 1 % NRG Blood lymphocytes variant/100 leukocytes 3 % NRG Blood erythrocyte morphology finding identification NORMAL NRG Serum or plasma choriogonadotropin ( test) detection - 03/12/17 16:34 Serum or plasma choriogonadotropin ( test) detection NEGATIVE NEGATIVE Comprehensive metabolic panel - 03/12/17 16:34 Serum or plasma sodium measurement (moles/volume) 137 mmol/L 135-145 Serum or plasma potassium measurement (moles/volume) 3.4 mmol/L 3.6-5.0 Serum or plasma chloride measurement (moles/volume) 98 mmol/L 98-107 Carbon dioxide 25 mmol/L 21-32 Serum or plasma anion gap determination (moles/volume) 14 mmol/L 5-14 Serum or plasma urea nitrogen measurement (mass/volume) 10 mg/dL 7-18 Serum or plasma creatinine measurement (mass/volume) 0.96 mg/dL 0.60-1.30 Serum or plasma urea nitrogen/creatinine mass ratio 10 NRG Serum or plasma creatinine measurement with calculation of estimated glomerular filtration rate > NRG Serum or plasma glucose measurement (mass/volume) 167 mg/dL 70-105 Serum or plasma calcium measurement (mass/volume) 10.1 mg/dL 8.5-10.1 Serum or plasma total bilirubin measurement (mass/volume) 0.8 mg/dL 0.1-1.0 Serum or plasma alkaline phosphatase measurement (enzymatic activity/volume) 118 U/L 40-136 Serum or plasma aspartate aminotransferase measurement (enzymatic activity/ volume) 132 U/L 5-34 Serum or plasma alanine aminotransferase measurement (enzymatic activity/volume ) 104 U/L 0-55 Serum or plasma protein measurement (mass/volume) 8.2 g/dL 6.4-8.2 Serum or plasma albumin measurement (mass/volume) 4.2 g/dL 3.2-4.5 Bacterial blood culture - 03/12/17 16:34 Bacterial blood culture NG NRG Blood lactic acid measurement (moles/volume) - 03/12/17 16:44 Blood lactic acid measurement (moles/volume) 2.42 mmol/L 0.50-2.00 Bacterial blood culture - 03/12/17 16:44 Bacterial blood culture NG NRG Sputum Gram stain - 03/12/17 16:45 Sputum Gram stain bacterial jacy NRG Bacterial sputum culture - 03/12/17 16:45 Bacterial sputum culture NORMAL NRG Serum or plasma lactate measurement (moles/volume) - 03/12/17 18:44 Serum or plasma lactate measurement (moles/volume) 1.84 mmol/L 0.50-2.00 Complete blood count (CBC) with automated white blood cell (WBC) differential - 03/13/17 04:20 Blood leukocytes automated count (number/volume) 6.4 10*3/uL 4.3-11.0 Blood erythrocytes automated count (number/volume) 4.45 10*6/uL 4.35-5.85 Venous blood hemoglobin measurement (mass/volume) 13.4 g/dL 11.5-16.0 Blood hematocrit (volume fraction) 35 % 35-52 Automated erythrocyte mean corpuscular volume 79 [foz_us] 80-99 Automated erythrocyte mean corpuscular hemoglobin (mass per erythrocyte) 30 pg 25-34 Automated erythrocyte mean corpuscular hemoglobin concentration measurement ( mass/volume) 38 g/dL 32-36 Automated erythrocyte distribution width ratio 13.3 % 10.0-14.5 Automated blood platelet count (count/volume) 244 10*3/uL 130-400 Automated blood platelet mean volume measurement 8.8 [foz_us] 7.4-10.4 Automated blood neutrophils/100 leukocytes 57 % 42-75 Automated blood lymphocytes/100 leukocytes 19 % 12-44 Blood monocytes/100 leukocytes 22 % 0-12 Automated blood eosinophils/100 leukocytes 1 % 0-10 Automated blood basophils/100 leukocytes 1 % 0-10 Blood neutrophils automated count (number/volume) 3.7 10*3 1.8-7.8 Blood lymphocytes automated count (number/volume) 1.2 10*3 1.0-4.0 Blood monocytes automated count (number/volume) 1.4 10*3 0.0-1.0 Automated eosinophil count 0.1 10*3/uL 0.0-0.3 Automated blood basophil count (count/volume) 0.0 10*3/uL 0.0-0.1 Whole blood basic metabolic panel - 03/13/17 04:20 Serum or plasma sodium measurement (moles/volume) 141 mmol/L 135-145 Serum or plasma potassium measurement (moles/volume) 3.5 mmol/L 3.6-5.0 Serum or plasma chloride measurement (moles/volume) 105 mmol/L 98-107 Carbon dioxide 25 mmol/L 21-32 Serum or plasma anion gap determination (moles/volume) 11 mmol/L 5-14 Serum or plasma urea nitrogen measurement (mass/volume) 13 mg/dL 7-18 Serum or plasma creatinine measurement (mass/volume) 1.05 mg/dL 0.60-1.30 Serum or plasma urea nitrogen/creatinine mass ratio 12 NRG Serum or plasma creatinine measurement with calculation of estimated glomerular filtration rate 56 NRG Serum or plasma glucose measurement (mass/volume) 141 mg/dL 70-105 Serum or plasma calcium measurement (mass/volume) 8.2 mg/dL 8.5-10.1 Serum or plasma phosphate measurement (mass/volume) - 03/13/17 04:20 Serum or plasma phosphate measurement (mass/volume) 3.5 mg/dL 2.3-4.7 Magnesium - 03/13/17 04:20 Magnesium 1.7 mg/dL 1.8-2.4 Encounters ACCT No. Visit Date/Time Discharge Status Pt. Type Provider Facility Loc./Unit Complaint [id number] 03/12/2017 16:05:00 03/13/2017 12:35:00 DIS Inpatient HEIDI OSUNA DO Via [facility] ICU HYPERTENSION [id number] 02/06/2017 15:02:00 02/06/2017 23:59:59 CLS Outpatient UCHE ESQUIVEL Via [facility] RAD MAMMO SCREENING [id number] 12/03/2016 15:45:00 12/03/2016 23:59:59 CLS Preadmit LEIF ESQUIVEL DO Via [facility] RAD SCREENING [id number] 10/23/2016 16:34:00 10/28/2016 07:15:00 DIS Outpatient KRYSTIAN GRIMES MD Via [facility] RAD H/O STONES [id number] 10/09/2016 00:19:00 10/09/2016 23:59:59 CLS Preadmit UCHE ESQUIVEL ROTOR BALANCER Via [facility] SDC RECURRENT CHRONIC SINUSITIS [id number] 07/21/2016 14:27:00 10/08/2016 00:01:00 DIS Outpatient UCHE ESQUIVEL Via [facility] RECURRENT CHRONIC SINUSITIS [id number] 05/30/2016 07:38:00 05/30/2016 11:08:00 DIS Outpatient STAN BALDWIN MD Via [facility] EARLY RECURRENT LEFT MAXILLARY SINUS DISEASE [id number] 05/26/2016 06:03:00 05/26/2016 16:11:00 DIS Outpatient STAN BALDWIN MD Via [facility] PREOP REVISIONS ESS ON LEFT [id number] 2016 15:47:00 2016 23:59:59 CLS Outpatient STAN BALDWIN MD Via [facility] RAD CHRONIC SINUSITIS [id number] 02/14/2016 06:50:00 02/14/2016 12:10:00 DIS Outpatient STAN BALDWIN MD Via [facility] DEVIATED SEPTUM [id number] 02/11/2016 12:54:00 02/11/2016 15:00:00 DIS Outpatient STAN BALDWIN MD Via [facility] PREOP DEVIATED SEPTUM [id number] 02/08/2016 00:11:00 02/08/2016 23:59:59 CLS Preadmit KRYSTIAN GRIMES MD Via [facility] RAD STONES [id number] 11/27/2015 12:56:00 02/07/2016 00:01:00 DIS Outpatient KRYSTIAN GRIMES MD [facility] RAD STONES [id number] 11/21/2015 15:58:00 11/21/2015 23:59:59 CLS Outpatient LEIF ESQUIVEL DO Via [facility] RAD FEVER,CHRONIC SINUS INFECTION [id number] 02/03/2015 20:01:00 02/03/2015 21:19:00 DIS Emergency LAURA LOVELL APRN Via [facility] ER [id number] 12/11/2014 13:41:00 12/11/2014 23:59:59 CLS Outpatient KRYSTIAN GRIMES MD Via [facility] RAD [id number] 12/05/2014 00:08:00 12/05/2014 23:59:59 CLS Preadmit KRYSTIAN GRIMES MD [facility] RAD STONES [id number] 09/07/2014 13:56:00 12/04/2014 00:01:00 DIS Outpatient KRYSTIAN GRIMES MD Via [facility] RAD [id number] 11/07/2014 07:04:00 11/07/2014 11:10:00 DIS Outpatient KRYSTIAN GRIMES MD [facility] [id number] 11/01/2014 16:16:00 11/01/2014 23:59:59 CLS Outpatient KRYSTIAN GRIMES MD [facility] PREOP [id number] 09/23/2014 02:57:00 09/23/2014 04:47:00 DIS Emergency VAUGHN HUDDLESTON MD Via [facility] ER [id number] 07/22/2014 17:28:00 07/22/2014 20:58:00 DIS Emergency VAUGHN HUDDLESTON MD Via [facility] ER [id number] 01/30/2014 12:40:00 01/31/2014 12:00:00 DIS Outpatient ADAN AUGUSTIN MD [facility] [id number] 01/24/2014 10:48:00 01/24/2014 23:59:59 CLS Outpatient ADAN AUGUSTIN MD [facility] PREOP [id number] 01/03/2014 10:12:00 01/03/2014 23:59:59 CLS Outpatient ADAN AUGUSTIN MD [facility] RAD [id number] 12/27/2013 09:58:00 12/27/2013 23:59:59 CLS Outpatient ADAN AUGUSTIN MD [facility] RAD [id number] 07/10/2013 11:21:00 10/05/2013 00:01:00 DIS Outpatient KRYSTIAN GRIMES MD [facility] LAB [id number] 09/06/2013 15:05:00 09/06/2013 23:59:59 CLS Outpatient KRYSTIAN GRIMES MD [facility] RAD [id number] 08/16/2013 05:55:00 08/16/2013 10:15:00 DIS Outpatient KRYSTIAN GRIMES MD [facility] [id number] 08/15/2013 07:29:00 08/15/2013 23:59:59 CLS Outpatient KRYSTIAN GRIMES MD [facility] PREOP [id number] 08/02/2013 15:17:00 08/02/2013 23:59:59 CLS Outpatient KRYSTIAN GRIMES MD [facility] RAD [id number] 08/02/2013 07:59:00 08/02/2013 23:59:59 CLS Outpatient ADAN AUGUSTIN MD [facility] RAD [id number] 07/04/2013 15:17:00 07/04/2013 23:59:59 CLS Outpatient KRYSTIAN GRIMES MD [facility] RAD [id number] 06/08/2013 06:56:00 06/08/2013 11:30:00 DIS Outpatient KRYSTIAN GRIMES MD [facility] [id number] 06/03/2013 10:29:00 06/03/2013 23:59:59 CLS Outpatient KRYSTIAN GRIMES MD [facility] PREOP [id number] 06/03/2013 08:06:00 06/03/2013 23:59:59 CLS Outpatient CANDI SAUCEDO [facility] RAD [id number] 06/02/2013 15:15:00 06/02/2013 20:04:00 DIS Emergency CANDI SAUCEDO [facility] ER [id number] 04/18/2013 16:19:00 04/18/2013 23:59:59 CLS Outpatient BASSAM OSORIO MD [facility] RAD [id number] 04/15/2013 21:43:00 04/15/2013 23:58:00 DIS Emergency VAUGHN HUDDLESTON MD [facility] ER [id number] 01/18/2013 08:13:00 01/18/2013 15:00:00 DIS Outpatient BASSAM OSORIO MD [facility] RAD [id number] 01/10/2013 08:08:00 01/10/2013 23:59:59 CLS Outpatient BASSAM OSORIO MD [facility] RAD [id number] 12/31/2012 14:59:00 12/31/2012 23:59:59 CLS Outpatient BASSAM OSORIO MD [facility] RAD [id number] 09/26/2014 12:41:00 ACT Document Registration KRYSTIAN GRIMES MD [facility] RAD [id number] 09/23/2014 04:57:00 Document Registration [id number] 09/23/2014 04:57:00 Document Registration [id number] 09/23/2014 04:57:00 Document Registration [id number] 10/06/2013 00:00:00 Document Registration [id number] 01/14/2011 13:40:00 Document Registration [id number] 06/12/2010 14:46:00 Document Registration
[2017-03-26] MEDS ORDERED: ONDANSETRON 4 MG/2 ML (SDV) Z0FRAN IVP ONE (12:15)
[2017-03-26] MEDS ORDERED: NS IV 1000 ML 1,000 ML IV SCH (12:15)
[2017-03-26 12:19] LABS: BASOPHILS % (AUTO) 0 % (0-10); EOSINOPHILS % (AUTO) 0 % (0-10); HEMATOCRIT 43 % (35-52); HEMOGLOBIN 15.4 G/DL (11.5-16.0); LYMPHOCYTES # (AUTO) 0.9 X 10^3 (1.0-4.0); LYMPHOCYTES % (AUTO) 7 % (12-44); MEAN CORPUSCULAR HEMOGLOBIN 30 PG (25-34); MEAN CORPUSCULAR HGB CONC 36 G/DL (32-36); MEAN CORPUSCULAR VOLUME 84 FL (80-99); MEAN PLATELET VOLUME 9.3 FL (7.4-10.4); MONOCYTES % (AUTO) 8 % (0-12); NEUTROPHILS # (AUTO) 10.7 X 10^3 (1.8-7.8); NEUTROPHILS % (AUTO) 85 % (42-75); PLATELET COUNT 346 10^3/uL (130-400); RED CELL DISTRIBUTION WIDTH 13.4 % (10.0-14.5); WHITE BLOOD COUNT 12.7 10^3/uL (4.3-11.0)
--- NOTE | 2017-03-26 12:29 | ED Abdominal Pain ---
General Chief Complaint: Abdominal/GI Problems Stated Complaint: STOMACH FLU Source of Information: Patient Exam Limitations: No Limitations History of Present Illness Date Seen by Provider: Mar 26, 2017 Time Seen By Provider: 12:27 Initial Comments To ER with persistent nausea vomiting diarrhea and low back pain as well as fever up to 103 last night while she was vomiting. She denies cough. She was admitted here to the hospital about 2 weeks ago for influenza. Timing/Duration: 2-3 Days Severity/Quality: Moderate Location: Other (no abdominal pain) Associated Symptoms: Fever/Chills, Nausea/Vomiting Allergies and Home Medications Allergies Coded Allergies: Sulfa (Sulfonamide Antibiotics) (Verified Allergy, Mild, SLEEPLESSNESS, ) ciprofloxacin (Verified Allergy, Mild, SLEEPLESSNESS, 05/26/16) erythromycin base (Verified Allergy, Unknown, 05/26/16) Home Medications Allopurinol 300 Mg Tablet, 300 MG PO DAILY, (Reported) Cholecalciferol (Vitamin D3) 50,000 Unit Capsule, 50,000 UNIT PO Harper, (Reported) Hydrocodone Bit/Acetaminophen 1 Tab Tab, 1 TAB PO DAILY PRN for PAIN-MODERATE, ( Reported) Levothyroxine Sodium 100 Mcg Tablet, 100 MCG PO DAILY, (Reported) Liraglutide 0.6 Mg/0.1 Ml Pen.injctr, 1.8 MG SQ DAILY, (Reported) USES ALONG WITH 0.6MG DOSE Liraglutide 0.6 Mg/0.1 Ml Pen.injctr, 0.6 MG SQ DAILY, (Reported) USES ALONG 1.8MG DOSE Lisinopril/Hydrochlorothiazide 1 Each Tablet, 1 TAB PO DAILY, (Reported) Metformin HCl 500 Mg Tab.er.24h, 500 MG PO HS, (Reported) Ondansetron 8 Mg Tab.rapdis, 8 MG PO Q6H, #20 Prescribed by: HEIDI OSUNA on 03/13/17 1042 Ondansetron 8 Mg Tab.rapdis, 8 MG PO Q6H PRN for NAUSEA/VOMITING-1ST LINE, #10 Prescribed by: LARUA LOVELL on 03/26/17 1431 Oseltamivir Phosphate 75 Mg Cap, 0 EACH PO BID for 4 Days Prescribed by: HEIDI OSUNA on 03/13/17 1042 Paroxetine HCl 20 Mg Tablet, 20 MG PO HS, (Reported) Potassium Citrate 15 Meq Tablet.er, 15 MEQ PO BID, (Reported) Ropinirole HCl 0.5 Mg Tablet, 0.5 MG PO HS, (Reported) Ropinirole HCl 0.5 Mg Tablet, 0.5 MG PO DAILY PRN for RESTLESS LEGS, (Reported) Review of Systems Constitutional: see HPI, fever EENTM: No Symptoms Reported Respiratory: No Symptoms Reported Cardiovascular: No Symptoms Reported Gastrointestinal: See HPI, Diarrhea, Nausea, Vomiting Genitourinary: No Symptoms Reported Musculoskeletal: see HPI, back pain Skin: no symptoms reported Psychiatric/Neurological: No Symptoms Reported Endocrine: No Symptoms Reported Hematologic/Lymphatic: No Symptoms Reported Past [id number] Hx Patient Social History Recent Foreign Travel: No Contact w/Someone Who Travel: No Recent Hopitalizations: No Immunizations Up To Date Tetanus Booster (TDap): Unknown Date of Pneumonia Vaccine: Jan 10, 2017 Date of Influenza Vaccine: Apr 07, 2013 Seasonal Allergies Seasonal Allergies: No Surgeries History of Surgeries: Yes ( LIVER BX, CYSTO AND UTEREROSCOPY, LAP BAND, eswl, hernia) Surgeries: Section Respiratory History of Respiratory Disorde: Yes (CPAP) Respiratory Disorders: Sleep Apnea Currently Using CPAP: Yes Currently Using BIPAP: No Cardiovascular History of Cardiac Disorders: Yes Cardiac Disorders: Hypertension Neurological History of Neurological Disord: No Reproductive System Hx Reproductive Disorders: No Sexually Transmitted Disease: No HIV/AIDS: No Female Reproductive Disorders: Denies Genitourinary History of Genitourinary Disor: Yes Genitourinary Disorders: Kidney Stones Gastrointestinal History of Gastrointestinal Di: No Gastrointestinal Disorders: Hiatal Hernia Musculoskeletal History of Musculoskeletal Dis: No Endocrine History of Endocrine Disorders: Yes (BOARDERLINE) Endocrine Disorders: Hypothyroidsim, Diabetes, Non-Insulin dep HEENT History of HEENT Disorders: No Cancer History of Cancer: No Psychosocial History of Psychiatric Problem: Yes Behavioral Health Disorders: Anxiety Integumentary History of Skin or Integumenta: No Blood Transfusions History of Blood Disorders: No Adverse Reaction to a Blood Tr: No (N/A) Family Medical History Family Medial History: Diabetes mellitus 19 FATHER Fibromyalgia G8 SISTER Hypertension 19 MOTHER Myocardial infarction 19 FATHER (X2) Physical Exam Vital Signs VS - Last 72 Hours, by Label 03/26/17 03/26/17 14:34 14:35 Temp 100.8 100.8 Capillary Refill : General Appearance: WD/WN, no apparent distress, obese HEENT: PERRL/EOMI, normal ENT inspection Neck: non-tender, full range of motion Respiratory: normal breath sounds, no respiratory distress, no accessory muscle use Cardiovascular: regular rate, rhythm, no murmur Gastrointestinal: normal bowel sounds, non tender, soft Extremities: normal range of motion, non-tender Neurologic/Psychiatric: alert, normal mood/affect, oriented x 3 Skin: normal color, warm/dry Progress/Results/Core Measures Results/Orders Lab Results Laboratory Tests Test 03/26/17 11:22 Range/Units White Blood Count 12.7 H 4.3-11.0 10^3/uL Red Blood Count 5.20 4.35-5.85 10^6/uL Hemoglobin 15.4 11.5-16.0 G/DL Hematocrit 43 35-52 % Mean Corpuscular Volume 84 80-99 FL Mean Corpuscular Hemoglobin 30 25-34 PG Mean Corpuscular Hemoglobin Concent 36 32-36 G/DL Red Cell Distribution Width 13.4 10.0-14.5 % Platelet Count 346 130-400 10^3/uL Mean Platelet Volume 9.3 7.4-10.4 FL Neutrophils (%) (Auto) 85 H 42-75 % Lymphocytes (%) (Auto) 7 L 12-44 % Monocytes (%) (Auto) 8 0-12 % Eosinophils (%) (Auto) 0 0-10 % Basophils (%) (Auto) 0 0-10 % Neutrophils # (Auto) 10.7 H 1.8-7.8 X 10^3 Lymphocytes # (Auto) 0.9 L 1.0-4.0 X 10^3 Monocytes # (Auto) 1.0 0.0-1.0 X 10^3 Eosinophils # (Auto) 0.0 0.0-0.3 10^3/uL Basophils # (Auto) 0.0 0.0-0.1 10^3/uL Neutrophils % (Manual) 84 % Lymphocytes % (Manual) 15 % Monocytes % (Manual) 1 % Eosinophils % (Manual) 0 % Basophils % (Manual) 0 % Band Neutrophils 0 % Blood Morphology Comment NORMAL Urine Color YELLOW Urine Clarity SLIGHTLY CLOUDY Urine pH 6 5-9 Urine Specific [place] 1.015 L 1.016-1.022 Urine Protein 2+ H NEGATIVE Urine Glucose (UA) 1+ H NEGATIVE Urine Ketones 1+ H NEGATIVE Urine Nitrite NEGATIVE NEGATIVE Urine Bilirubin NEGATIVE NEGATIVE Urine Urobilinogen NORMAL NORMAL MG/DL Urine Leukocyte Esterase 1+ H NEGATIVE Urine RBC (Auto) 1+ H NEGATIVE Urine RBC RARE /HPF Urine WBC 2-5 /HPF Urine Squamous Epithelial Cells 10-25 H /HPF Urine Crystals NONE /LPF Urine Bacteria TRACE /HPF Urine Casts NONE /LPF Urine Mucus LARGE H /LPF Urine Culture Indicated NO Sodium Level 137 135-145 MMOL/L Potassium Level 3.5 L 3.6-5.0 MMOL/L Chloride Level 100 98-107 MMOL/L Carbon Dioxide Level 20 L 21-32 MMOL/L Anion Gap 17 H 5-14 MMOL/L Blood Urea Nitrogen 15 7-18 MG/DL Creatinine 0.89 0.60-1.30 MG/DL Estimat Glomerular Filtration Rate > 60 BUN/Creatinine Ratio 17 Glucose Level 204 H 70-105 MG/DL Calcium Level 9.4 8.5-10.1 MG/DL Total Bilirubin 1.0 0.1-1.0 MG/DL Aspartate Amino Transf (AST/SGOT) 45 H 5-34 U/L Alanine Aminotransferase (ALT/SGPT) 61 H 0-55 U/L Alkaline Phosphatase 105 40-136 U/L Total Protein 7.7 6.4-8.2 GM/DL Albumin 3.9 3.2-4.5 GM/DL Lipase 22 8-78 U/L My Orders Orders - LAURA LOVELL APRN Cbc With Automated Diff (03/26/17 12:13) Comprehensive Metabolic Panel (03/26/17 12:13) Lipase (03/26/17 12:13) Ua Culture If Indicated (03/26/17 12:13) Urine Bedside (03/26/17 12:13) Ns Iv 1000 Ml (Sodium Chloride 0.9%) (03/26/17 12:15) Ondansetron Injection (Zofran Injectio (03/26/17 12:15) Ketorolac Injection (Toradol Injection) (03/26/17 12:30) Manual Differential (03/26/17 11:22) Chest Pa/Lat (2 View) (03/26/17 12:19) Ibuprofen Tablet (Motrin Tablet) (03/26/17 14:00) Medications Given in ED Current Medications Medications Dose Ordered Sig/Alfred Route Start Time Stop Time Status Last Admin Dose Admin Ibuprofen 800 mg ONCE ONCE PO 03/26/17 14:00 03/26/17 14:01 DC 03/26/17 14:35 800 MG Ketorolac Tromethamine 30 mg ONCE ONCE IVP 03/26/17 12:30 03/26/17 12:31 DC 03/26/17 14:34 30 MG Ondansetron HCl 4 mg ONCE ONCE IVP 03/26/17 12:15 03/26/17 12:16 DC 03/26/17 12:35 4 MG Vital Signs/I&O Vital Sign - Last 12Hours 03/26/17 03/26/17 14:34 14:35 Temp 100.8 100.8 Departure Impression Impression: Primary Impression: Viral syndrome Disposition: ADMITTED INPATIENT Condition: Stable Departure-Patient Inst. Decision time for Depature: 14:30 Referrals: LEIF ESQUIVEL DO (PCP/Family) Primary Care Physician Patient Instructions: VIRAL SYNDROME Add. Discharge Instructions: 1. Tylenol and Motrin for fever and chills 2. Drink plenty of fluids 3. Return to ER for any worsening symptoms or shortness of breath, abdominal pain or high fever. All discharge instructions reviewed with patient and/or family. Voiced understanding. Scripts Ondansetron (Zofran Odt) 8 Mg Tab.rapdis 8 MG PO Q6H Y for NAUSEA/VOMITING-1ST LINE, #10 TAB Prov: LAURA LOVELL APRN 03/26/17 Copy Copies To 1: LEIF ESQUIVEL PETER J APRN Mar 26, 2017 12:28
[2017-03-26 12:30] LABS: BILIRUBIN,URINE NEGATIVE (NEGATIVE); CLARITY,URINE SLIGHTLY CLOUDY; COLOR,URINE YELLOW; GLUCOSE, URINE (UA) 1+ (NEGATIVE); KETONES,URINE 1+ (NEGATIVE); LEUKOCYTE ESTERASE ,URINE 1+ (NEGATIVE); NITRITE,URINE NEGATIVE (NEGATIVE); PH,URINE 6 (5-9); PROTEIN,URINE 2+ (NEGATIVE); UROBILINOGEN,URINE NORMAL (NORMAL)
[2017-03-26] MEDS ORDERED: KETOROLAC 30 MG/ML VIAL IVP ONE (12:30)
[2017-03-26 12:33] LABS: ALANINE AMINOTRANSFERASE 61 U/L (0-55); ALBUMIN 3.9 GM/DL (3.2-4.5); ALKALINE PHOSPHATASE 105 U/L (40-136); BUN/CREATININE RATIO 17; CALCIUM 9.4 MG/DL (8.5-10.1); CARBON DIOXIDE 20 MMOL/L (21-32); CHLORIDE 100 MMOL/L (98-107); CREATININE SERUM 0.89 MG/DL (0.60-1.30); GFR ESTIMATED > 60; GLUCOSE 204 MG/DL (70-105); LIPASE 22 U/L (8-78); POTASSIUM 3.5 MMOL/L (3.6-5.0); SODIUM 137 MMOL/L (135-145); TOTAL PROTEIN 7.7 GM/DL (6.4-8.2)
[2017-03-26 12:35] LABS: BAND NEUTROPHILS 0 %; BASOPHILS % (MANUAL) 0 %; EOSINOPHILS % (MANUAL) 0 %; LYMPHOCYTES % (MANUAL) 15 %; MONOCYTES % (MANUAL) 1 %; NEUTROPHILS % (MANUAL) 84 %; RBC MORPH NORMAL
[2017-03-26 12:47] LABS: BACTERIA,URINE TRACE /HPF; RBC,URINE RARE /HPF
--- NOTE | 2017-03-26 13:26 | Diagnostic Imaging Report ---
Indication: Flulike symptoms Comparison: 03/13/17 Findings: 2 views of the chest are obtained. Heart size is normal. The pulmonary vessels appear unremarkable. There is no pneumothorax, mediastinal widening or pleural fluid. Lungs are clear. The osseous structures unremarkable. Impression: Negative chest. Dictated by: Dictated on workstation # [id number]
[2017-03-26] MEDS ORDERED: IBUPROFEN 800 MG (MOTRIN) TAB PO ONE (14:00)
[2017-03-26] MEDS ORDERED: ONDA8TAB9 PO (14:31)
[2017-03-26 15:34] VITALS: BP 128/74
== END 2017-03-26 15:34 | disposition other institution (70) ==
LOC: ER 10:04
DX: B34.9 Viral infection, unspecified (principal); F41.9 Anxiety disorder, unspecified; E03.9 Hypothyroidism, unspecified; E11.9 Type 2 diabetes mellitus without complications; I10 Essential (primary) hypertension; G47.30 Sleep apnea, unspecified; Z79.84 Long term (current) use of oral hypoglycemic drugs; Z87.19 Personal history of other diseases of the digestive system; Z87.59 Personal history of other complications of pregnancy, childbirth and the puerperium; Z87.440 Personal history of urinary (tract) infections
CPT/HCPCS: 36415; 71046; 80053; 81000; 83690; 84703; 85007; 85027; 96361; 96374; 96375

== ENCOUNTER → 2017-04-06 | Outpatient (CLI) | payer BC ==
--- NOTE | 2017-04-06 16:01 | Diagnostic Imaging Report ---
PROCEDURE: CT sinuses without contrast. TECHNIQUE: Multiple contiguous axial images were obtained through the sinuses without the use of intravenous contrast. Coronal and sagittal reformations were then performed. INDICATION: Sinus infection and fever. COMPARISON: Comparison is made with prior CT sinus study from 05/08/2016. FINDINGS: There is improved aeration to the left maxillary sinus since prior CT. There is moderate mucosal thickening of the left maxillary sinus. There is worsening opacification of the right maxillary sinus which shows moderate fluid and mucosal thickening. The sphenoid sinus is well aerated. There are postsurgical changes of bilateral ethmoidectomy with mild mucosal thickening present. There is minimal fluid and mucosal thickening in the right half of the frontal sinus. The mastoids are well aerated. There has been performance of bilateral uncinectomy with partial resection of the medial flores of maxillary sinuses. IMPRESSION: Postsurgical changes to the paranasal sinuses. There are findings suggestive of right maxillary sinusitis. There is a generalized mucosal disease, as described. Dictated by: Dictated on workstation # [id number]
== END ==
LOC: RAD 12:37
PROVIDERS: ATTEND Internal Medicine
DX: J32.9 Chronic sinusitis, unspecified (principal); R50.9 Fever, unspecified; Z98.890 Other specified postprocedural states
CPT/HCPCS: 70486

== ENCOUNTER 2017-06-23 05:41 | Outpatient (CLI) | payer BC ==
[~2017-06-23] VITALS: Ht 172.7 cm; Wt 129.7 kg
[2017-06-23] MEDS ORDERED: INSU3INS2 SQ (11:54)
== END 2017-06-23 12:16 ==
LOC: PREOP 05:41
PROVIDERS: ATTEND Surgery
DX: Z01.818 Encounter for other preprocedural examination (principal); R11.2 Nausea with vomiting, unspecified

== ENCOUNTER 2017-06-25 10:23 | Day surgery (SDC) | payer BC ==
[~2017-06-25] VITALS: Ht 172.7 cm; Wt 129.7 kg
[~2017-06-25 10:23] MED LIST changes: +INSU3INS2 SQ
--- OUTSIDE RECORDS SUMMARY | 2017-06-25 10:26 | XMS REPORT | Encounter Summary ---
Author Author [facility] Organization [facility] Address Unknown Phone Unavailable Care Team Providers Care Poultry Farm Laborer Name Role Phone Abdelrahman Edgaria NIA PCP Reason for Visit * Reason Comments Results Encounter Details Date Type Department Care Team Description 03/27/2017 Telephone [facility] Lizette Arvizu MD Results Physicians - Internal [address] [facility] Medicine Medical Office [address] [place] [address] [address] [facility] MED [phone] [place] [address] Social History Tobacco Use Types Packs/Day Years Used Date Never Smoker Smokeless Tobacco: Never Used Sex Assigned at Date Recorded Not on file as of this encounter Miscellaneous Notes * Telephone Encounter - Lizette Arvizu MD - 03/27/2017 1:16 PM STOCK ORDER LISTER I telephoned the Ms. Salcido who identified herself when she answered the phone. We discussed she had a normal/appropriate/adequate response to pneumococcal vaccination. In brief review, the tests we did to evaluate for possible primary immunodeficiency as a potential cause for her recurrent sinusitis symptoms have all been normal and we've found no lab abnormalities suggestive of any underlying immunodeficiency, so unfortunately I won't be able to offer any recommendations for how to help her symptoms from a primary-immune- deficiency standpoint since her tests we did of her immune system are normal. I' m happy to see her back in the future for follow up if she wishes and she may make this appointment at her discretion. She should continue to follow with her local ENT and PCP as well. * Telephone Encounter - Dina Doty RN - 03/27/2017 10:39 AM STOCK ORDER LISTER Received VM from pt reporting she had missed a call. Returned her call at . Pt lets me know she is available for a call today or next week; she also gives permission to leave a voicemail on her phone if needed. Routing to Dr. Arvizu for notification. * Telephone Encounter - Lizette Arvizu MD - 03/27/2017 9:04 AM STOCK ORDER LISTER I telephoned patient to discuss her lab results. There was no answer. I didn't leave voice message, was unable to find documentation that we could leave messages for this patient? Thanks. in this encounter Plan of Treatment Not on fileas of this encounter Visit Diagnoses Not on filein this encounter
--- OUTSIDE RECORDS SUMMARY | 2017-06-25 10:26 | XMS REPORT | Clinical Summary ---
Author Author [facility] Organization [facility] Address Unknown Phone Unavailable Care Team Providers Care Vp Information Technology Name Role Phone Ella Edgar APRN PCP Source Comments Some departments are not documenting in the electronic medical record. If you do not see the information that you expected, contact Release of Information in the Health Information Management department at [phone] for further assistance in locating additional records.[facility] Allergies Active Allergy Reactions Severity Noted [...] nostril as directed 17 nasal spray daily. Active Problems Problem Noted Date Wheezing 03/03/2017 [...] Encounters Date Type Specialty Care Team Description 03/27/2017 Telephone Pediatric Allergy Lizette Arvizu MD Results from Last 3 Months Family History Medical [...] Taken Blood Pressure 111/74 03/03/2017 10:41 AM WELDER HELPER Pulse 79 03/03/2017 10:41 AM WELDER HELPER Temperature 36.8 C (98.2 F) 03/03/2017 10:41 AM WELDER HELPER Respiratory Rate 16 03/03/2017 10:41 AM WELDER HELPER Oxygen Saturation - - Inhaled Oxygen - - Concentration Weight 129 kg (284 lb 6.4 oz) 03/03/2017 10:41 AM WELDER HELPER Height 165.1 cm (5' 5") 03/03/2017 10:41 AM WELDER HELPER Body Mass Index 47.33 03/03/2017 10:41 AM WELDER HELPER Plan of Treatment Health Maintenance Due Date Last Done Comments PHYSICAL (COMPREHENSIVE) 1977 EXAM PERTUSSIS VACCINE 1981 HIV SCREENING 1985 TETANUS VACCINE 05/09/1987 CERVICAL CANCER SCREENING 2000 BREAST CANCER SCREENING 2010 INFLUENZA VACCINE 12/07/2017 Results Not on filefrom Last 3 Months
--- OUTSIDE RECORDS SUMMARY | 2017-06-25 10:26 | XMS REPORT | Continuity of Care Document ---
Author Author [employer] Organization [facility] Address Unknown Phone Unavailable Care Team Providers Care Teamcenter Solution Architect Name Role Phone [employer] Unavailable Unavailable Problems Medications Allergies, Adverse Reactions, Alerts Immunizations Results Vital Signs Encounters Location Location Details Encounter Type Encounter Number Reason For Visit Attending Provider ADM Date DC Date Status Source OUTPATIENT [id number] MAIRA MCKINNEY 01/26/2017 01/26/2017 Active [facility] OUTPATIENT [id number] MAIRA MCKINNEY 03/21/2017 03/21/2017 Active [facility] O MAIRA MCKINNEY Active [facility] Procedures Plan of Care Social History Assessment and Plan Family History Advance Directives Functional Status
--- OUTSIDE RECORDS SUMMARY | 2017-06-25 10:30 | XMS REPORT | Continuity of Care Document ---
Author Author [facility] Organization [facility] Address Unknown Phone Unavailable Allergies Active Description Code Type Severity Reaction Onset Reported/Identified Relationship to Patient Clinical Status Yes ciprofloxacin [id number] Drug Allergy Mild SLEEPLESSNESS 05/26/2016 Yes Sulfa (Sulfonamide Antibiotics) [id number] Drug Allergy Mild SLEEPLESSNESS 05/26/2016 Yes erythromycin base [id number] Drug Allergy Unknown N/A 05/26/2016 Medications There [...] KRYSTIAN GRIMES MD Ot 592.0 08/16/2013 KRYSTIAN GRIMES MD Ot 592.0 10/05/2013 KRYSTIAN GRIMES MD Ot 592.9 01/31/2014 ADAN AUGUSTIN MD Ot 250.00 01/31/2014 CHARLI TOWNSEND, ADAN Ot 272.0 01/31/2014 ADAN AUGUSTIN MD Ot 278.01 01/31/2014 ADAN AUGUSTIN MD Ot 327.23 01/31/2014 ADAN AUGUSTIN MD Ot 401.9 01/31/2014 ADAN AUGUSTIN MD Ot 553.1 01/31/2014 ADAN AUGUSTIN MD Ot V85.42 02/21/2014 ADAN UAGUSTIN MD Ot 553.1 02/21/2014 CHARLI TOWNSEND, TAKAAKI [...] MD Ot 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 02/11/2016 TSAN BALDWIN MD Ot 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 [...] Z01.812 ENCOUNTER FOR PREPROCEDURAL LABORATORY E 02/12/2016 BALDWIN MD, STAN P Ot Z11.2 ENCOUNTER FOR SCREENING FOR OTHER [...] KRYSTIAN A Ot N20.9 URINARY CALCULUS, UNSPECIFIED 05/26/2016 STAN BALDWIN MD Ot 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 MAXILLARY SINUSITIS 05/26/2016 STAN BALDWIN MD Ot J33.9 NASAL POLYP, UNSPECIFIED 05/26/2016 STAN BALDWIN MD Ot Z01.818 ENCOUNTER FOR OTHER PREPROCEDURAL EXAMIN 05/27/2016 STAN BALDWIN MD Ot 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 [...] J32.2 CHRONIC ETHMOIDAL SINUSITIS 07/15/2016 UCHE ESQUIVEL PHYSICAL BIOCHEMIST Ot J32.9 CHRONIC SINUSITIS, UNSPECIFIED 07/15/2016 UCHE ESQUIVEL PHYSICAL BIOCHEMIST Ot J32.9 CHRONIC SINUSITIS, UNSPECIFIED 07/16/2016 ESQUVIEL, UCHE L PHYSICAL BIOCHEMIST Ot J32.9 CHRONIC SINUSITIS, UNSPECIFIED 07/17/2016 ESQUIVEL, UCHE L PHYSICAL BIOCHEMIST Ot J32.9 CHRONIC SINUSITIS, UNSPECIFIED 07/18/2016 ESQUIVEL, UCHE L PHYSICAL BIOCHEMIST Ot J32.9 CHRONIC SINUSITIS, UNSPECIFIED 07/19/2016 ESQUIVEL, UCHE L PHYSICAL BIOCHEMIST Ot J32.9 CHRONIC SINUSITIS, UNSPECIFIED 07/19/2016 ESQUIVEL, UCHE L PHYSICAL BIOCHEMIST Ot J32.9 CHRONIC SINUSITIS, UNSPECIFIED 07/20/2016 ESQUIVEL, UCHE L PHYSICAL BIOCHEMIST Ot J32.9 CHRONIC SINUSITIS, UNSPECIFIED 07/20/2016 ESQUIVEL, UCHE L PHYSICAL BIOCHEMIST Ot J32.9 CHRONIC SINUSITIS, UNSPECIFIED 07/21/2016 ESQUIVEL, UCHE L PHYSICAL BIOCHEMIST Ot J32.9 CHRONIC SINUSITIS, UNSPECIFIED 08/20/2016 ESQUIVEL, UCHE L PHYSICAL BIOCHEMIST Ot J32.9 CHRONIC SINUSITIS, UNSPECIFIED 10/08/2016 ESQUIVEL, UCHE L PHYSICAL BIOCHEMIST Ot J32.9 CHRONIC SINUSITIS, UNSPECIFIED 10/28/2016 SYDNEY TOWNSEND, KRYSTIAN Rosenthal Ot Z87.442 PERSONAL HISTORY OF URINARY CALCULI 10/28/2016 SYDNEY TOWNSEND, KRYSTIAN Rosenthal Ot Z87.442 PERSONAL HISTORY OF URINARY CALCULI 02/20/2017 DARREN ESQUIVELRICIA L PHYSICAL BIOCHEMIST Ot Z12.31 ENCNTR SCREEN MAMMOGRAM FOR MALIGNANT NE 03/13/2017 ENRRIQUE DO, HEIDI Ot E03.9 HYPOTHYROIDISM, UNSPECIFIED 03/13/2017 OSUNA DO, HEIDI Ot E11.9 TYPE 2 DIABETES MELLITUS WITHOUT COMPLIC 03/13/2017 OSUNA DO, HEIDI Ot E66.9 OBESITY, UNSPECIFIED 03/13/2017 OSUNA DO, HEIDI Ot E83.42 HYPOMAGNESEMIA 03/13/2017 OSUNA DO, HEIDI Ot E86.0 DEHYDRATION 03/13/2017 OSUNA DO, HEIDI Ot E87.2 ACIDOSIS 03/13/2017 OSUNA DO, HEIDI Ot E87.6 HYPOKALEMIA 03/13/2017 ENRRIQUE DO HEIDI Ot F41.9 ANXIETY DISORDER, UNSPECIFIED 03/13/2017 HEIDI OSUNA DO Ot G25.81 RESTLESS LEGS SYNDROME 03/13/2017 HEIDI OSUNA DO Ot G47.33 OBSTRUCTIVE SLEEP APNEA (ADULT) (PEDIATR 03/13/2017 HEIDI OSUNA DO Ot I10 ESSENTIAL (PRIMARY) HYPERTENSION 03/13/2017 HEIDI OSUNA DO Ot J10.1 FLU DUE TO OTH IDENT INFLUENZA VIRUS W O 03/13/2017 HEIDI OSUNA DO Ot K44.9 DIAPHRAGMATIC HERNIA WITHOUT OBSTRUCTION 03/13/2017 HEIDI OSUNA DO Ot Z68.42 BODY MASS INDEX (BMI) 45.0-49.9, ADULT 03/13/2017 HEIDI OSUNA DO Ot Z79.84 ASSISTED (CURRENT) USE OF ORAL HYPOGLYC 03/26/2017 LEIF ESQUIVEL DO Ot J32.9 CHRONIC SINUSITIS, UNSPECIFIED 03/26/2017 LEIF ESQUIVEL DO Ot R50.9 FEVER, UNSPECIFIED 03/26/2017 SYDNEY TOWNSEND, KRYSTIAN Rosenthal Ot N20.9 URINARY CALCULUS, UNSPECIFIED 03/26/2017 NICOLASA TOWNSEND, STAN Gay Ot J32.9 CHRONIC SINUSITIS, UNSPECIFIED 03/26/2017 UCHE ESQUIVEL Ot J32.9 CHRONIC SINUSITIS, UNSPECIFIED 03/26/2017 UCHE ESQUIVEL PHYSICAL BIOCHEMIST Ot Z12.31 ENCNTR SCREEN MAMMOGRAM FOR MALIGNANT NE 03/26/2017 LAURA LOVELL APRN Ot B34.9 VIRAL INFECTION, UNSPECIFIED 03/26/2017 LAURA LOVELL APRN Ot E03.9 HYPOTHYROIDISM, UNSPECIFIED 03/26/2017 LAURA LOVELL APRN Ot E11.9 TYPE 2 DIABETES MELLITUS WITHOUT COMPLIC 03/26/2017 LAURA LOVELL APRN Ot F41.9 ANXIETY DISORDER, UNSPECIFIED 03/26/2017 LAURA LOVELL APRN Ot G47.30 SLEEP APNEA, UNSPECIFIED 03/26/2017 LAURA LOVELL APRN Ot I10 ESSENTIAL (PRIMARY) HYPERTENSION 03/26/2017 LAURA LOVELL APRN Ot R11.2 NAUSEA WITH VOMITING, UNSPECIFIED 03/26/2017 LAURA LOVELL APRN Ot Z79.84 ASSISTED (CURRENT) USE OF ORAL HYPOGLYC 03/26/2017 LAURA LOVELL APRN Ot Z87.19 PERSONAL HISTORY OF OTHER DISEASES OF TH 03/26/2017 LAURA LOVELL APRN Ot Z87.440 PERSONAL HISTORY OF URINARY (TRACT) INFE 03/26/2017 LAURA LOVELL APRN Ot Z87.59 PERSONAL HISTORY OF COMP OF PREG, CHLDBR 03/30/2017 LAURA LOVELL APRN Ot B34.9 VIRAL INFECTION, UNSPECIFIED 03/30/2017 LAURA LOVELL APRN Ot E03.9 HYPOTHYROIDISM, UNSPECIFIED 03/30/2017 LAURA LOVELL APRN Ot E11.9 TYPE 2 DIABETES MELLITUS WITHOUT COMPLIC 03/30/2017 LAURA LOVELL APRN Ot F41.9 ANXIETY DISORDER, UNSPECIFIED 03/30/2017 LAURA LOVELL APRN Ot G47.30 SLEEP APNEA, UNSPECIFIED 03/30/2017 LAURA LOVELL APRN Ot I10 ESSENTIAL (PRIMARY) HYPERTENSION 03/30/2017 LAURA LOVELL APRN Ot R11.2 NAUSEA WITH VOMITING, UNSPECIFIED 03/30/2017 LUARA LOVELL APRN Ot Z79.84 ASSISTED (CURRENT) USE OF ORAL HYPOGLYC 03/30/2017 LAURA LOVELL APRN Ot Z87.19 PERSONAL HISTORY OF OTHER DISEASES OF 03/30/2017 LAURA LOVELL APRN Ot Z87.440 PERSONAL HISTORY OF URINARY (TRACT) INFE 03/30/2017 LAURA LOVELL APRN Ot Z87.59 PERSONAL HISTORY OF COMP OF PREG, CHLDBR 04/01/2017 LAURA LOVELL APRN Ot B34.9 VIRAL INFECTION, UNSPECIFIED 04/01/2017 LAURA LOVELL APRN Ot E03.9 HYPOTHYROIDISM, UNSPECIFIED 04/01/2017 LAURA LOVELL APRN Ot E11.9 TYPE 2 DIABETES MELLITUS WITHOUT COMPLIC 04/01/2017 LAURA LOVELL APRN Ot F41.9 ANXIETY DISORDER, UNSPECIFIED 04/01/2017 LAURA LOVELL APRN Ot G47.30 SLEEP APNEA, UNSPECIFIED 04/01/2017 LAURA LOVELL APRN Ot I10 ESSENTIAL (PRIMARY) HYPERTENSION 04/01/2017 LAURA LOVELL APRN Ot R11.2 NAUSEA WITH VOMITING, UNSPECIFIED 04/01/2017 LAURA LOVELL APRN Ot 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 04/01/2017 LAURA LOVELL RAT EXTERMINATOR Ot Z87.19 PERSONAL HISTORY OF OTHER DISEASES OF TH 04/01/2017 LAURA LOVELL RAT EXTERMINATOR Ot Z87.440 PERSONAL HISTORY OF URINARY (TRACT) INFE 04/01/2017 LAURA LOVELL RAT EXTERMINATOR Ot Z87.59 PERSONAL HISTORY OF COMP OF PREG, CHLDBR 04/07/2017 ESQUIVEL DO, LEIF Cai Ot J32.9 CHRONIC SINUSITIS, UNSPECIFIED 04/07/2017 ESQUIVEL DO, LEIF Cai Ot R50.9 FEVER, UNSPECIFIED 04/07/2017 ESQUIVEL DO, LEIF J Ot Z98.890 OTHER SPECIFIED POSTPROCEDURAL STATES 04/16/2017 ESQUIVEL DO, LEIF Cai Ot J32.9 CHRONIC SINUSITIS, UNSPECIFIED 04/16/2017 ESQUIVEL DO, LEIF Cai Ot R50.9 FEVER, UNSPECIFIED 04/16/2017 ESQUIVEL DO, LEIF J Ot Z98.890 OTHER SPECIFIED POSTPROCEDURAL STATES 06/17/2017 ESQUIVEL DO, LEIF J Ot J32.9 CHRONIC SINUSITIS, UNSPECIFIED 06/17/2017 ESQUIVEL DO, LEIF J Ot R50.9 FEVER, UNSPECIFIED 06/17/2017 SYDNEY TOWNSEND, KRYSTIAN Rosenthal Ot N20.9 URINARY CALCULUS, UNSPECIFIED 06/17/2017 NICOLASA TOWNSEND, STAN Gay Ot J32.9 CHRONIC SINUSITIS, UNSPECIFIED 06/17/2017 UCHE ESQUIVEL Ot J32.9 CHRONIC SINUSITIS, UNSPECIFIED 06/17/2017 UCHE ESQUIVEL PHYSICAL BIOCHEMIST Ot Z12.31 ENCNTR SCREEN MAMMOGRAM FOR MALIGNANT NE 06/17/2017 ESQUIVEL DO, LEIF J Ot J32.9 CHRONIC SINUSITIS, UNSPECIFIED 06/17/2017 ESQUIVEL DO, LEIF Cai Ot R50.9 FEVER, UNSPECIFIED 06/17/2017 ESQUIVEL DO, LEIF J Ot Z98.890 OTHER SPECIFIED POSTPROCEDURAL STATES 06/19/2017 ESQUIVEL DO, LEIF J Ot J32.9 CHRONIC SINUSITIS, UNSPECIFIED 06/19/2017 ESQUIVEL DO, LEIF J Ot R50.9 FEVER, UNSPECIFIED 06/19/2017 SYDNEY TOWNSEND, KRYSTIAN Rosenthal Ot N20.9 URINARY CALCULUS, UNSPECIFIED 06/19/2017 NICOLASA TOWNSEND, STAN Gay Ot J32.9 CHRONIC SINUSITIS, UNSPECIFIED 06/19/2017 UCHE ESQUIVEL Ot J32.9 CHRONIC SINUSITIS, UNSPECIFIED 06/19/2017 UCHE ESQUIVEL Ot Z12.31 ENCNTR SCREEN MAMMOGRAM FOR MALIGNANT NE 06/19/2017 LEIF ESQUIVEL DO Ot J32.9 CHRONIC SINUSITIS, UNSPECIFIED 06/19/2017 LEIF ESQUIVEL DO Ot R50.9 FEVER, UNSPECIFIED 06/19/2017 LEIF ESQUIVEL DO Ot Z98.890 OTHER SPECIFIED POSTPROCEDURAL STATES Procedures There is no data. Results Test [...] creatinine measurement (mass/time) 1548 % 600-1800 Clinical control clerk subassembly review of results SEE FOOTNOTE NRG Complete [...] 10:03 Bacteria identification in wound by culture [id number] NR FREE TEXT EXTERNAL SENSITIVITY REPORTED 06/01/16 8:10 NRG QUANTITY OF GROWTH Moderate Growth NR Bacterial susceptibility panel - 05/30/16 10:03 Oxacillin [...] 10:10 NRG QUANTITY OF GROWTH Abundant Growth NR FREE TEXT ENTRY 2 PLUS NORMAL JACY NR Bacterial sputum culture [id number] [facility] Bacterial susceptibility panel - 07/11/16 [...] 07/18/16 12:10 QUANTITY OF GROWTH Scant Growth NRG FTX;REPORTABLE MIXED COLONY GROWTH NRG Aerobic bacterial nasal culture [id number] NRG Sputum Gram stain - 07/19/16 10:30 GRAM STAIN SPUTUM AND MIXED BACTERIAL JACY NRG Bacterial sputum culture - 07/19/16 10:30 FREE TEXT EXTERNAL SENSITIVITY REPORTED 07/21 16:10 NRG QUANTITY OF GROWTH Scant Growth NRG MRSA AGAR Screening test for MRSA is NEGATIVE (Final to follow) [facility] FREE TEXT ENTRY 2 PLUS NORMAL JACY [facility] Bacterial sputum culture [id number] [facility] Bacterial susceptibility panel - 07/19/16 [...] creatinine measurement (mass/time) 1654 % 600-1800 Clinical control clerk subassembly review of results See Below [facility] Influenza virus A and B antigen detection - 03/12/17 16:30 CALL POSITIVES (F1 HELP) CALLED TO [facility] IN ICU AT 1714 [facility] FLU RESULT POSITIVE FOR INFLUENZA A ANTIGEN, NEG FOR B ANTIGEN, BY IA [facility] Methicillin resistant Staphylococcus aureus (MRSA) screening culture - 16:30 Methicillin resistant Staphylococcus aureus (MRSA) screening culture NEG [facility] Complete blood count (CBC) with [...] - 03/13/17 04:20 Magnesium 1.7 mg/dL 1.8-2.4 Complete blood count (CBC) with automated white blood cell (WBC) differential - 03/26/17 11:22 Blood leukocytes automated count (number/volume) 12.7 10*3/uL 4.3-11.0 Blood erythrocytes automated count (number/volume) 5.20 10*6/uL 4.35-5.85 Venous blood hemoglobin measurement (mass/volume) 15.4 g/dL 11.5-16.0 Blood hematocrit (volume fraction) 43 % 35-52 Automated erythrocyte mean corpuscular volume 84 [foz_us] 80-99 Automated erythrocyte mean corpuscular hemoglobin (mass per erythrocyte) 30 pg 25-34 Automated erythrocyte mean corpuscular hemoglobin concentration measurement ( mass/volume) 36 g/dL 32-36 Automated erythrocyte distribution width ratio 13.4 % 10.0-14.5 Automated blood platelet count (count/volume) 346 10*3/uL 130-400 Automated blood platelet mean volume measurement 9.3 [foz_us] 7.4-10.4 Automated blood neutrophils/100 leukocytes 85 % 42-75 Automated blood lymphocytes/100 leukocytes 7 % 12-44 Blood monocytes/100 leukocytes 8 % 0-12 Automated blood eosinophils/100 leukocytes 0 % 0-10 Automated blood basophils/100 leukocytes 0 % 0-10 Blood neutrophils automated count (number/volume) 10.7 10*3 1.8-7.8 Blood lymphocytes automated count (number/volume) 0.9 10*3 1.0-4.0 Blood monocytes automated count (number/volume) 1.0 10*3 0.0-1.0 Automated eosinophil count 0.0 10*3/uL 0.0-0.3 Automated blood basophil count (count/volume) 0.0 10*3/uL 0.0-0.1 Comprehensive metabolic panel - 03/26/17 11:22 Serum or plasma sodium measurement (moles/volume) 137 mmol/L 135-145 Serum or plasma potassium measurement (moles/volume) 3.5 mmol/L 3.6-5.0 Serum or plasma chloride measurement (moles/volume) 100 mmol/L 98-107 Carbon dioxide 20 mmol/L 21-32 Serum or plasma anion gap determination (moles/volume) 17 mmol/L 5-14 Serum or plasma urea nitrogen measurement (mass/volume) 15 mg/dL 7-18 Serum or plasma creatinine measurement (mass/volume) 0.89 mg/dL 0.60-1.30 Serum or plasma urea nitrogen/creatinine mass ratio 17 NRG Serum or plasma creatinine measurement with calculation of estimated glomerular filtration rate > NRG Serum or plasma glucose measurement (mass/volume) 204 mg/dL 70-105 Serum or plasma calcium measurement (mass/volume) 9.4 mg/dL 8.5-10.1 Serum or plasma total bilirubin measurement (mass/volume) 1.0 mg/dL 0.1-1.0 Serum or plasma alkaline phosphatase measurement (enzymatic activity/volume) 105 U/L 40-136 Serum or plasma aspartate aminotransferase measurement (enzymatic activity/ volume) 45 U/L 5-34 Serum or plasma alanine aminotransferase measurement (enzymatic activity/volume ) 61 U/L 0-55 Serum or plasma protein measurement (mass/volume) 7.7 g/dL 6.4-8.2 Serum or plasma albumin measurement (mass/volume) 3.9 g/dL 3.2-4.5 Lipase - 03/26/17 11:22 Lipase 22 U/L 8-78 Blood manual differential performed detection - 03/26/17 11:22 Blood monocytes/100 leukocytes 1 % NRG Manual blood segmented neutrophils/100 leukocytes 84 % NRG Blood band neutrophils/100 leukocytes 0 % NRG Manual blood lymphocytes/100 leukocytes 15 % NRG Manual eosinophils/100 leukocytes in nose 0 % NRG Manual blood basophils/100 leukocytes 0 % NRG Blood erythrocyte morphology finding identification NORMAL NRG Complete urinalysis with reflex to culture - 03/26/17 11:22 Urine color determination YELLOW NRG Urine clarity determination SLIGHTLY CLOUDY NRG Urine pH measurement by test strip 6 5-9 Specific gravity of urine by test strip 1.015 1.016- 1.022 Urine protein assay by test strip, semi-quantitative 2+ NEGATIVE Urine glucose detection by automated test strip 1+ NEGATIVE Erythrocytes detection in urine sediment by light microscopy 1+ NEGATIVE Urine ketones detection by automated test strip 1+ NEGATIVE Urine nitrite detection by test strip NEGATIVE NEGATIVE Urine total bilirubin detection by test strip NEGATIVE NEGATIVE Urine urobilinogen measurement by automated test strip (mass/volume) NORMAL NORMAL Urine leukocyte esterase detection by dipstick 1+ NEGATIVE Automated urine sediment erythrocyte count by microscopy (number/high power field) RARE NRG Automated urine sediment leukocyte count by microscopy (number/high power field ) [HPF] NRG Bacteria detection in urine sediment by light microscopy TRACE NRG Squamous epithelial cells detection in urine sediment by light microscopy 10-25 NRG Crystals detection in urine sediment by light microscopy NONE NRG Casts detection in urine sediment by light microscopy NONE NRG Mucus detection in urine sediment by light microscopy LARGE NRG Complete urinalysis with reflex to culture NO NRG Encounters ACCT No. Visit Date/Time Discharge Status Pt. Type Provider Facility Loc./Unit Complaint [id number] 04/06/2017 12:37:00 04/06/2017 23:59:59 CLS Outpatient LEIF ESQUIVEL DO [facility] RAD J01.01 RECURRENT FEVER [id number] 03/26/2017 10:04:00 03/26/2017 15:34:00 DIS Emergency LAURA LOVELL APRN [facility] ER STOMACH FLU [id number] 03/12/2017 16:05:00 03/13/2017 12:35:00 DIS Inpatient HEIDI OSUNA DO [facility] ICU HYPERTENSION [id number] 02/06/2017 15:02:00 02/06/2017 23:59:59 CLS Outpatient UCHE ESQUIVEL [facility] RAD MAMMO SCREENING [id number] 12/03/2016 15:45:00 12/03/2016 23:59:59 CLS Preadmit ALVIN LEIF NEWELL [facility] RAD SCREENING [id number] 10/23/2016 16:34:00 10/28/2016 07:15:00 DIS Outpatient KRYSTIAN GRIMES MD [facility] RAD H/O STONES [id number] 10/09/2016 00:19:00 10/09/2016 23:59:59 CLS Preadmit UCHE ESQUIVEL [facility] RECURRENT CHRONIC SINUSITIS [id number] 07/21/2016 14:27:00 10/08/2016 00:01:00 DIS Outpatient UCHE ESQUIVEL [facility] RECURRENT CHRONIC SINUSITIS [id number] 05/30/2016 07:38:00 05/30/2016 11:08:00 DIS Outpatient STAN BALDWIN MD [facility] EARLY RECURRENT LEFT MAXILLARY SINUS DISEASE [id number] 05/26/2016 06:03:00 05/26/2016 16:11:00 DIS Outpatient STAN BALDWIN MD [facility] PREOP REVISIONS ESS ON LEFT [id number] 2016 15:47:00 2016 23:59:59 CLS Outpatient STAN BALDWIN MD [facility] RAD CHRONIC SINUSITIS [id number] 02/14/2016 06:50:00 02/14/2016 12:10:00 DIS Outpatient STAN BALDWIN MD [facility] DEVIATED SEPTUM [id number] 02/11/2016 12:54:00 02/11/2016 15:00:00 DIS Outpatient STAN BALDWIN MD [facility] PREOP DEVIATED SEPTUM [id number] 02/08/2016 00:11:00 02/08/2016 23:59:59 CLS Preadmit KRYSTIAN GRIMES MD [facility] RAD STONES [id number] 11/27/2015 12:56:00 02/07/2016 00:01:00 DIS Outpatient KRYSTIAN GRIMES MD [facility] RAD STONES [id number] 11/21/2015 15:58:00 11/21/2015 23:59:59 CLS Outpatient LEIF ESQUIVEL DO [place] [facility] RAD FEVER,CHRONIC SINUS INFECTION [id number] 02/03/2015 20:01:00 02/03/2015 21:19:00 DIS Emergency LAURA LOVELL APRN [facility] ER [id number] 12/11/2014 13:41:00 12/11/2014 23:59:59 CLS Outpatient KRYSTIAN GRIMES MD [facility] RAD [id number] 12/05/2014 00:08:00 12/05/2014 23:59:59 CLS Preadmit KRYSTIAN GRIMES MD [facility] RAD STONES [id number] 09/07/2014 13:56:00 12/04/2014 00:01:00 DIS Outpatient KRYSTIAN GRIMES MD [facility] RAD [id number] 11/07/2014 07:04:00 11/07/2014 11:10:00 DIS Outpatient KRYSTIAN GRIMES MD [facility] [id number] 11/01/2014 16:16:00 11/01/2014 23:59:59 CLS Outpatient KRYSTIAN GRIMES MD [facility] PREOP [id number] 09/23/2014 02:57:00 09/23/2014 04:47:00 DIS Emergency VAUGHN HUDDLESTON MD [facility] ER [id number] 07/22/2014 17:28:00 07/22/2014 20:58:00 DIS Emergency VAUGHN HUDDLESTON MD [facility] ER [id number] 01/30/2014 12:40:00 01/31/2014 12:00:00 DIS Outpatient ADAN AUGUSTIN MD [facility] [id number] 01/24/2014 10:48:00 01/24/2014 23:59:59 CLS Outpatient ADAN AUGUSTIN MD [facility] PREOP [id number] 01/03/2014 10:12:00 01/03/2014 23:59:59 CLS Outpatient ADAN AUGUSTIN MD [facility] RAD [id number] 12/27/2013 09:58:00 12/27/2013 23:59:59 CLS Outpatient ADAN AUGUSTIN MD [facility] RAD [id number] 07/10/2013 11:21:00 10/05/2013 00:01:00 DIS Outpatient KRYSTIAN GRIMES MD [facility] LAB [id number] 09/06/2013 15:05:00 09/06/2013 23:59:59 CLS Outpatient KRYSTIAN GRIMES MD [facility] RAD [id number] 08/16/2013 05:55:00 08/16/2013 10:15:00 DIS Outpatient KRYSTIAN GRIMES MD [facility] [id number] 08/15/2013 07:29:00 08/15/2013 23:59:59 CLS Outpatient KRYSTIAN GRIMES MD [facility] PREOP [id number] 08/02/2013 15:17:00 08/02/2013 23:59:59 CLS Outpatient KRYSTIAN GRIMES MD [facility] RAD [id number] 08/02/2013 07:59:00 08/02/2013 23:59:59 CLS Outpatient ADAN AUGUSTIN MD [facility] RAD [id number] 07/04/2013 15:17:00 07/04/2013 23:59:59 CLS Outpatient KRYSTIAN GRIMES MD [facility] RAD [id number] 06/08/2013 06:56:00 06/08/2013 11:30:00 DIS Outpatient KRYSTIAN GRIMES MD [facility] [id number] 06/03/2013 10:29:00 06/03/2013 23:59:59 CLS Outpatient KRYSTIAN GRIMES MD [facility] PREOP [id number] 06/03/2013 08:06:00 06/03/2013 23:59:59 CLS Outpatient CANDI SAUCEDO [facility] RAD [id number] 06/02/2013 15:15:00 06/02/2013 20:04:00 DIS Emergency CANDI SAUCEDO [facility] ER [id number] 04/18/2013 16:19:00 04/18/2013 23:59:59 CLS Outpatient BASSAM OSORIO MD [facility] RAD [id number] 04/15/2013 21:43:00 04/15/2013 23:58:00 DIS Emergency VAUGHN HUDDLESTON MD [facility] ER [id number] 01/18/2013 08:13:00 01/18/2013 15:00:00 DIS Outpatient BASSAM OSORIO MD [facility] RAD [id number] 01/10/2013 08:08:00 01/10/2013 23:59:59 CLS Outpatient BASSAM OSORIO MD [facility] RAD [id number] 12/31/2012 14:59:00 12/31/2012 23:59:59 CLS Outpatient BASSAM OSORIO MD [facility] RAD [id number] 06/25/2017 11:30:00 PEN Preadmit ADAN AUGUSTIN MD [facility] SD ABD PAIN, NAUSEA/VOMITING,REGURGITATION [id number] 06/23/2017 05:41:00 ACT Outpatient ADAN AUGUSTIN MD [facility] PREOP ABD PAIN, NAUSEA/VOMITING,REGURGITATION [id number] 09/26/2014 12:41:00 ACT Document Registration KRYSTIAN GRIMES MD [facility] RAD [id number] 09/23/2014 04:57:00 Document Registration [id number] 09/23/2014 04:57:00 Document Registration [id number] 09/23/2014 04:57:00 Document Registration [id number] 10/06/2013 00:00:00 Document Registration [id number] 01/14/2011 13:40:00 Document Registration [id number] 06/12/2010 14:46:00 Document Registration [id number] 12/12/2014 05:31:51 ACT Document Registration
[2017-06-25 10:35] VITALS: BP 132/88
[2017-06-25] MEDS ORDERED: proPOfol 200 MG/20 ML (DIPRIVAN) VIAL IV ONE (10:50)
[2017-06-25] MEDS ORDERED: SEVOFLURANE (ULTANE) 15 ML INHAL SOLN ONE ×3 (10:50→10:53)
[2017-06-25] MEDS ORDERED: ROCURONIUM 10 MG/ML 5 ML SYRINGE IV ONE (10:50)
[2017-06-25] MEDS ORDERED: MIDAZOLAM 2 MG/2 ML (VERSED) VIAL ONE (10:50)
[2017-06-25] MEDS ORDERED: LIDOCAINE PF 2% 5 ML (XYLOCAINE) VIAL ONE (10:50)
[2017-06-25] MEDS ORDERED: ONDANSETRON 4 MG/2 ML (SDV) Z0FRAN ONE (10:50)
[2017-06-25] MEDS ORDERED: fentaNYL INJECTION 100 MCG/2 ML AMP ONE ×2 (10:50→14:02)
[2017-06-25 11:08] LABS: BASOPHILS # (AUTO) 0.1 10^3/uL (0.0-0.1); BASOPHILS % (AUTO) 1 % (0-10); EOSINOPHILS # (AUTO) 0.6 10^3/uL (0.0-0.3); EOSINOPHILS % (AUTO) 7 % (0-10); HEMATOCRIT 43 % (35-52); HEMOGLOBIN 14.4 G/DL (11.5-16.0); LYMPHOCYTES # (AUTO) 1.6 X 10^3 (1.0-4.0); LYMPHOCYTES % (AUTO) 20 % (12-44); MEAN CORPUSCULAR HEMOGLOBIN 29 PG (25-34); MEAN CORPUSCULAR HGB CONC 34 G/DL (32-36); MEAN CORPUSCULAR VOLUME 87 FL (80-99); MEAN PLATELET VOLUME 9.4 FL (7.4-10.4); MONOCYTES # (AUTO) 0.6 X 10^3 (0.0-1.0); MONOCYTES % (AUTO) 7 % (0-12); NEUTROPHILS # (AUTO) 5.3 X 10^3 (1.8-7.8); NEUTROPHILS % (AUTO) 66 % (42-75); PLATELET COUNT 338 10^3/uL (130-400); RED BLOOD COUNT 4.91 10^6/uL (4.35-5.85); RED CELL DISTRIBUTION WIDTH 13.2 % (10.0-14.5)
[2017-06-25] MEDS ORDERED: ceFAZolin INJECTION 1,000 MG in NS (IVPB) 100 ML IV ONE (11:15)
[2017-06-25] MEDS: LACTATED RINGERS 1,000 ML IV PRN ×3 (12:05→14:40)
--- NOTE | 2017-06-25 12:22 | Progress Note-Pre Operative ---
Pre-Operative Progress Note H&P Reviewed The H&P was reviewed, patient examined and no changes noted. Date Seen by Provider: Jun 25, 2017 Time Seen by Provider: 12:15 Date H&P Reviewed: Jun 25, 2017 Time H&P Reviewed: 12:20 Pre-Operative Diagnosis: Abdominal pain, Nausea, vomiting, regurgation SCOTTIE SAHU APRN Jun 25, 2017 12:22 pm
[2017-06-25] MEDS ORDERED: HYDROcodone/APAP 5 MG/325 MG (LORTAB) TAB PO ONE (12:30)
[2017-06-25] MEDS ORDERED: ACETAMINOPHEN 325 MG TABLET PO PRN (12:30)
[2017-06-25] MEDS ORDERED: morphine INJ 10 MG/ML 1ML (SYR OR VIAL) IVP PRN (12:30)
[2017-06-25] MEDS ORDERED: ONDANSETRON 4 MG/2 ML (SDV) Z0FRAN IVP PRN ×2 (12:30→14:45)
[2017-06-25] MEDS ORDERED: BUP/EPI 0.5% 1:200,000 (SENSORCAINE) 30 ML VIAL INJ ONE (13:45)
[2017-06-25] MEDS ORDERED: GLYCOPYRROLATE 0.2 MG/ML (ROBINUL) 2 ML VIAL ONE (13:49)
[2017-06-25] MEDS ORDERED: NEOSTIGMINE 1 MG/ML 5 ML SYRINGE ONE (13:49)
[2017-06-25] MEDS ORDERED: PHENYLEPHRINE 100 MCG/ML 10 ML (ANESTHESIA) SYR ONE (14:04)
--- NOTE | 2017-06-25 14:10 | Progress Note-Post Operative ---
Post-Operative Progess Note Surgeon (s)/Diagnostic Sales Specialist (s) Surgeon ADAN AUGUSTIN MD Diagnostic Sales Specialist: jaden rolle FAMILY DINNER SERVICE SPECIALIST Pre-Operative Diagnosis Abdominal pain, Nausea, vomiting, regurgation Post-Operative Diagnosis inferior band slippage. Procedure & Operative Findings Date of Procedure 06/25/17 Procedure Performed/Findings diagnostic laparoscopy, removal adjustable gastric restrictive device and subcutaneous port. Anesthesia Type GET Estimated Blood Loss Estimated blood loss (mL): minimal Specimens/Packing Specimens Removed none ADAN AUGUSTIN MD Jun 25, 2017 2:10 pm
[2017-06-25] MEDS ORDERED: HYDR-34 PO (14:11)
--- NOTE | 2017-06-25 14:12 | Discharge Inst-Surgical ---
D/C Lap Instructions-CHARLI New, Converted, or Re-Newed RX: RX on Chart Follow Up Appt in 2 weeks Activity as tolerated No driving for 24 hours No [address] while on pain medications Incentive Spirometry use every 2 hours while awake clear liquid diet 48hrs then Regular Diet Symptoms to Report: Fever over 101 degree F, Nausea/Vomiting Infection Signs and Symptoms to report: Increased redness, Foul odor of wound, Increased drainage Bathing instructions: May shower Operative Area Clean/Dry; Keep incision clean/dry If any problems/questions: Contact your physician or go to Emergency Room ADAN AUGUSTIN MD Jun 25, 2017 2:12 pm
[2017-06-25] MEDS ORDERED: HYDROmorphone 2 MG/ML VIAL (DILAUDID) ONE (14:33)
[2017-06-25] MEDS: morphine INJ 10 MG/ML 1ML (SYR OR VIAL) IVP PRN ×2 (14:35→14:43)
[2017-06-25] MEDS ORDERED: HYDROmorphone 2 MG/ML VIAL (DILAUDID) IVP PRN (14:45)
[2017-06-25 15:30] VITALS: BP 119/51
[2017-06-25] MEDS ORDERED: HYDROcodone/APAP 5 MG/325 MG (LORTAB) TAB ONE (15:53)
[2017-06-25 16:00] VITALS: BP 121/63
[2017-06-25 16:30] VITALS: BP 105/47
[2017-06-25 16:35] VITALS: BP 105/47
--- NOTE | 2017-06-25 23:35 | OPERATIVE REPORT ---
DATE OF SERVICE: 06/25/2017 ATTENDING PRIMARY CARE PHYSICIAN: Dr. Elias Edgar. PREOPERATIVE DIAGNOSES: Persistent abdominal pain, nausea and vomiting. POSTOPERATIVE DIAGNOSIS: Inferior band slippage. PROCEDURE: Diagnostic laparoscopy, laparoscopic gastric restrictive device removal and subcutaneous port. SURGEON: Dr. Cruz. EPIC SPECIALIST: Daniel Ghotra APRN. ANESTHESIA: General endotracheal. ESTIMATED BLOOD LOSS: Minimal. FINDINGS: Inferior band slippage by the angle of the band below the horizontal plane. No erosion. DISPOSITION: The patient tolerated the procedure well. INDICATIONS: The patient is a 47-year-old female with a history of morbid obesity and medical comorbidities including hypertension, hypercholesterolemia, non-insulin dependent diabetes, obstructive sleep apnea and depression. She is status post lap band placement with an AP standard band on 09/25/2013. She developed pain in the left upper abdominal quadrant as well as in the umbilical region. She states that this would occur after standing for long periods of time. A CT scan was performed, which did show an umbilical hernia. She had undergone a repair of the umbilical hernia with mesh shortly after the band placement. She reports that the pain in the umbilical region has improved; however, she has had persistent episodes of nausea and vomiting as well as epigastric pain and left upper abdominal quadrant pain despite removal of fluid from the band. Her symptoms persisted despite maximal medical therapy as well. She was on a number of different acid reducers with no relief as well as the necessary lifestyle and diet accommodation. DESCRIPTION OF PROCEDURE: The patient was brought to the operating room, laid supine on the table. After adequate IV pain and sedating medications and general endotracheal intubation, the abdomen was prepped and draped in standard surgical fashion. A 0.5% Marcaine with epinephrine was then used to anesthetize the overlying skin in the left upper abdominal quadrant and transverse skin incision made using a 15 blade. An 0 silk suture was applied to the medial aspect of the incision for retraction and a Veress needle was inserted with a low opening pressure of 0 mmHg and the abdomen was then insufflated to 15 mmHg pressure. The Veress needle removed and a 5 mm Xcel trocar placed followed by a 5 mm 45-degree angle laparoscope visualizing the peritoneal cavity. A 4-quadrant abdominal exploration was performed. The stomach was intact; however, the angle of the previously placed band was angled below horizontal consistent with inferior band slippage. There was moderate liver steatosis and a normal appearing gallbladder. A small bowel and omentum appeared normal with no recurrent hernia. Under direct visualization, we then proceeded to place mid abdominal left to midline 10 mm port after the skin and peritoneal lining were anesthetized using 0.5% Marcaine with epinephrine and a transverse skin incision was made using 15 blade. In a similar manner, a midabdominal right of midline 10 mm port was placed followed by a right upper abdominal quadrant 5 mm port. The patient was then placed in a reverse Trendelenburg position. The left lobe of the liver retracted anteriorly and superiorly. The only few loose adhesive tissue was along the buckle of the band, which were bluntly dissected. The buckle was then undone. The band tubing then cut and the band removed intact with no signs of erosion identified. The adjustable gastric band was removed through the 10 mm port site. The skin incision along the port was then extended laterally and the port dissected out using electrocautery as well as a heavy Loepz scissors including the fascial sutures. Good hemostasis was observed. This was then completely removed intact with the remaining band tubing. The fascia and peritoneum to the 10 mm port sites were then closed under direct visualization using a Choco-Janet device and 0 Vicryl suture. Abdomen was desufflated and remaining ports removed. All skin incisions were closed using 4-0 Monocryl running subcuticular sutures. Wounds were then cleaned and covered with Dermabond. The patient tolerated the procedure well. We will start IV and oral pain medications with a clear liquid diet. Once she is tolerating clears, has good pain control with oral pain medications, ambulating well, we will discharge her home. She also will be instructed to phase I clear liquid diet for the next 48 hours and slowly advance as tolerated. Job ID: [id number] DocumentID: [id number] Dictated Date: 06/25/2017 14:26:00 Car Hop Date: 06/25/2017 23:35:28 Dictated By: ADAN CRUZ MD
== END 2017-06-25 17:05 | disposition home or self-care (01) ==
LOC: SDC 10:23
PROVIDERS: ATTEND Surgery
DX: R11.2 Nausea with vomiting, unspecified (principal); R10.13 Epigastric pain; R10.12 Left upper quadrant pain; E11.9 Type 2 diabetes mellitus without complications; I10 Essential (primary) hypertension; E78.00 Pure hypercholesterolemia, unspecified; G47.33 Obstructive sleep apnea (adult) (pediatric); F32.9 Major depressive disorder, single episode, unspecified; K76.0 Fatty (change of) liver, not elsewhere classified; E03.9 Hypothyroidism, unspecified; K21.9 Gastro-esophageal reflux disease without esophagitis; E66.01 Morbid (severe) obesity due to excess calories; Z68.41 Body mass index [BMI] 40.0-44.9, adult; Z79.84 Long term (current) use of oral hypoglycemic drugs; Z79.899 Other long term (current) drug therapy
CPT/HCPCS: 36415; 82962; 84703; 85025; 87081

== ENCOUNTER → 2017-07-23 | Outpatient (CLI) | payer BC ==
[~2017-07-23] MED LIST changes: +HYDR-34 PO; +IOHEXOL 350 MG/ML 100 ML (OMNIPAQUE 350) VIAL IV ONE; +NS 250 ML (IVPB) BAG IV ONE
--- NOTE | 2017-07-23 13:20 | Diagnostic Imaging Report ---
PROCEDURE: CT abdomen and pelvis with and without contrast. TECHNIQUE: Precontrast acquisitions were acquired through the abdomen and pelvis. Multiple contiguous axial images were obtained through the abdomen and pelvis after the administration of intravenous contrast. INDICATION: Right-sided abdominal pain radiating into the mid abdomen. Comparison is made with prior CT from 02/03/2015. FINDINGS: The lung bases are clear. The liver demonstrates generalized low density consistent with hepatic steatosis. No discrete liver mass is identified. The pancreas and spleen are unremarkable. No adrenal mass is detected. Small cortical low-density left kidney appears stable and suggestive of a cyst. Patient's previously noted Lap-Band has been removed. There is a small amount of fluid in the subcutaneous tissues of the right abdomen at the site of the previous Lap-Band reservoir. This measures 3.5 x 1.9 cm. This may represent a small seroma. The small and large bowel loops are normal caliber. There is no ascites. There is a small fat-containing umbilical hernia. The uterus and bladder are unremarkable. IMPRESSION: 1. Hepatic steatosis. 2. Removal of Lap-Band with small fluid collection in the subcutaneous tissues of the right abdomen, perhaps postoperative seroma. Remainder of the study is unremarkable. No acute feature is detected. Dictated by: Dictated on workstation # [id number]
== END ==
LOC: RAD 10:23
PROVIDERS: ATTEND Surgery
DX: K76.0 Fatty (change of) liver, not elsewhere classified (principal); Z98.890 Other specified postprocedural states
CPT/HCPCS: 74178

== ENCOUNTER 2018-01-05 14:59 | Outpatient (RCR) | payer BC ==
[~2018-01-05 14:59] MED LIST changes: +HYDR-4226 PO; -HYDR-757 PO; -IOHEXOL 350 MG/ML 100 ML (OMNIPAQUE 350) VIAL IV ONE; -NS 250 ML (IVPB) BAG IV ONE
--- NOTE | 2018-01-05 16:47 | Diagnostic Imaging Report ---
INDICATION: Kidney stones. TIME OF EXAM: 3:39 PM FINDINGS: No definite radiopaque urinary tract calculi are seen. Bowel gas pattern is unremarkable. No pathologic calcifications are seen. IMPRESSION: No acute features detected. Dictated by: Dictated on workstation # [id number]
== END 2018-04-05 | disposition home or self-care (01) ==
LOC: RAD 14:59
PROVIDERS: ATTEND Urology
DX: N20.0 Calculus of kidney (principal)
CPT/HCPCS: 74018; 82140; 82340; 82507; 82570; 83735; 83945; 83986; 84105; 84133; 84300; 84392; 84560

== ENCOUNTER → 2018-07-07 | Outpatient (CLI) | payer BC ==
[~2018-07-07] MED LIST changes: -FEXO-192 PO; +FEXO-222 PO
--- NOTE | 2018-07-07 09:54 | Diagnostic Imaging Report ---
PROCEDURE: US Hepatic (Liver). TECHNIQUE: Multiple real-time grayscale images were obtained over the right upper quadrant in various projections. INDICATION: Elevated liver enzymes. FINDINGS: There is hepatomegaly. There is increased echogenicity of the liver compatible with fatty infiltration. There are no focal liver lesions. There is no biliary duct dilatation. Common bile duct measures 5.6 mm. There is no cholelithiasis, gallbladder wall thickening or pericholecystic fluid. Pancreas is largely obscured by bowel gas. Right kidney is normal in appearance. There is no ascites. IMPRESSION: Hepatomegaly and fatty infiltration of the liver, otherwise unremarkable right upper quadrant ultrasound. Dictated by: Dictated on workstation # [id number]
== END ==
LOC: RAD 06:31
PROVIDERS: ATTEND Nurse Practitioner Family
DX: K76.0 Fatty (change of) liver, not elsewhere classified (principal)
CPT/HCPCS: 76705

== ENCOUNTER → 2020-07-06 | Outpatient (CLI) | payer BC ==
[~2020-07-06] MED LIST changes: -CETI10TA20 PO; +CETI10TA49 PO; -HYDR-3876 PO; +HYDR-3920 PO; +LISI1TAB26 PO; -METF-760 PO; +METF-845 PO; +METF-865 PO; -METF500T8 PO; +ROPI0.5T4 PO; -TAMS0.4C98 PO; +TMSL.4C PO
--- NOTE | 2020-07-06 13:02 | Diagnostic Imaging Report ---
EXAMINATION: Cervical spine at 11:19 a.m. INDICATION: Cervical radiculopathy. Five views were obtained. There are no prior studies available for comparison. The lateral view shows slight narrowing of the disc space at C5-C6. The other intervertebral disc spaces are fairly well-maintained. The oblique views also suggest that there is mild neural foraminal narrowing at C4-C5 and C5-C6 on the right. There is no significant neural foraminal narrowing on the left. There is no fracture or acute bony abnormality identified. There is no sign of retropharyngeal edema. The lung apices are clear. IMPRESSION: 1. There is no evidence for an acute bony abnormality. 2. There are mild degenerative changes involving the lower cervical spine as described above. 3. If there is clinical concern regarding spinal stenosis or nerve root encroachment, then MRI would be recommended for additional study. Dictated by: Dictated on workstation # [id number]
--- NOTE | 2020-07-06 14:08 | Diagnostic Imaging Report ---
Indication: Routine screening. Comparison is made with prior mammogram 02/06/2017 and 12/31/2012. 2-D and 3-D bilateral screening mammography was performed with CAD. Scattered fibroglandular densities are identified bilaterally. Benign calcifications again noted bilaterally. There are benign nodules in both breasts which appears stable. No spiculated mass or malignant appearing microcalcifications are seen. Axillae are unremarkable. IMPRESSION: BI-RADS Category 2 No mammographic features suspicious for malignancy are identified. ACR BI-RADS Category 2: Benign findings. Result letter will be mailed to the patient. Note: At least 10% of breast cancer is not imaged by mammography. Dictated by: Dictated on workstation # [id number]
== END ==
LOC: RAD 10:44
PROVIDERS: ATTEND Nurse Practitioner Family
DX: Z12.31 Encounter for screening mammogram for malignant neoplasm of breast (principal); M50.122 Cervical disc disorder at C5-C6 level with radiculopathy; M48.02 Spinal stenosis, cervical region
CPT/HCPCS: 72050; 77063; 77067

== ENCOUNTER 2020-09-12 10:40 | Outpatient (RCR) | payer BC | END 2020-09-26 15:31 | disposition home or self-care (01) | PROVIDERS: ATTEND Nurse Practitioner Family | DX: M50.13 Cervical disc disorder with radiculopathy, cervicothoracic region (principal) ==

== ENCOUNTER → 2021-02-06 | Outpatient (CLI) | payer BC ==
[~2021-02-06] MED LIST changes: -LISI1TAB26 PO; +LISI1TAB48 PO
--- NOTE | 2021-02-06 17:00 | Diagnostic Imaging Report ---
EXAMINATION: Chest 2 view HISTORY: Wheezing for one week. COMPARISON: 06/30/2017. FINDINGS: The lung volumes are normal. No focal consolidation is seen. Mild bronchial wall thickening is seen in the perihilar regions. No large pleural effusion or pneumothorax is seen. The cardiomediastinal silhouette is normal in size and contour. No acute osseous abnormality is seen. IMPRESSION: 1. Mild bronchial wall thickening in the perihilar regions, suggestive of bronchitis/bronchiolitis. Dictated by: Dictated on workstation # [id number]
== END ==
LOC: RAD 16:37
PROVIDERS: ATTEND Nurse Practitioner Family
DX: R06.2 Wheezing (principal)
CPT/HCPCS: 71046

== ENCOUNTER → 2021-02-20 | Outpatient (CLI) | payer BC ==
--- NOTE | 2021-02-20 13:04 | Diagnostic Imaging Report ---
EXAMINATION: CT chest without contrast. TECHNIQUE: Multiple contiguous axial images were obtained through the chest without the use of intravenous contrast. All CT scans use one or more of the following dose optimizing techniques: automated exposure control, MA and/or KvP adjustment based on patient size and exam type or iterative reconstruction. HISTORY: Wheezing COMPARISON: None available. FINDINGS: There is no edema or pneumonia. No pleural effusion. No pneumothorax. There is a 5 mm triangular left lower lobe nodule near the fissure which is likely a lymph node. There is no axillary or supraclavicular lymphadenopathy. There is no mediastinal lymphadenopathy. Heart size is normal. There are no coronary artery calcifications. No pericardial effusion. Aorta is normal in caliber. Limited views of the upper abdomen show a presumed cyst in left kidney that is too small to characterize. There are no suspicious osseus lesions. IMPRESSION: 1. Left lower lobe 5 mm nodule is likely an intrapulmonary lymph node. According to the Fleischner Society guidelines: In a low risk patient, no routine follow up is recommended. In a high risk patient, consider optional CT at 12 months. Dictated by: Dictated on workstation # [id number]
== END ==
LOC: RAD 12:32
PROVIDERS: ATTEND Nurse Practitioner Family
DX: R91.1 Solitary pulmonary nodule (principal); R06.2 Wheezing
CPT/HCPCS: 71250

== ENCOUNTER → 2021-04-24 | Outpatient (CLI) | payer BC ==
[~2021-04-24] MED LIST changes: +RT-ALBUTEROL SULF 2.5 MG/3 ML PRE-MIX VIAL INH ONE
== END ==
LOC: RT 13:00
PROVIDERS: ATTEND Internal Medicine Critical Care Medicine
DX: J45.40 Moderate persistent asthma, uncomplicated (principal); J30.1 Allergic rhinitis due to pollen
CPT/HCPCS: 94060; 94726; 94729

== ENCOUNTER → 2021-10-10 | Outpatient (CLI) | payer BC ==
[~2021-10-10] MED LIST changes: -FEXO-46 PO; +NF-ALLE180 PO; -RT-ALBUTEROL SULF 2.5 MG/3 ML PRE-MIX VIAL INH ONE
--- NOTE | 2021-10-10 15:55 | Diagnostic Imaging Report ---
INDICATION: Recent back injury. History of L1 compression fracture. COMPARISON: CT chest dated 02/20/2021. TECHNIQUE: Frontal, lateral, and oblique radiographic views of the lumbar spine were obtained. FINDINGS: Static alignment is preserved. There is no significant aly or retrolisthesis. There is no evidence of jumped facets. There is a compression shaped deformity of the L1 vertebral body. This results in approximately 20% vertebral body height loss anteriorly. Although age indeterminate, this is new when compared to 02/20/2021. The remaining lumbar vertebral body heights are preserved. Mild multilevel degenerative changes are noted. IMPRESSION: Age-indeterminate compression deformity of L1. Dictated by: Dictated on workstation # [id number]
--- NOTE | 2021-10-10 15:56 | Diagnostic Imaging Report ---
INDICATION: Back injury. Pain. COMPARISON: None. FINDINGS: Frontal and lateral views of the thoracic spine were obtained. Visualization of the upper thoracic spine is limited on the lateral projection. Alignment and vertebral heights are maintained. There is no fracture or destructive process. There are no large paraspinal masses. Mild multilevel degenerative disease is noted in the thoracic spine. Limited views of the lungs are clear. IMPRESSION: 1. No acute fracture or dislocation of the thoracic spine. 2. Mild multilevel degenerative changes. Dictated by: Dictated on workstation # [id number]
== END ==
LOC: RAD 15:10
PROVIDERS: ATTEND Nurse Practitioner Family
DX: M48.56XA Collapsed vertebra, not elsewhere classified, lumbar region, initial encounter for fracture (principal); M47.814 Spondylosis without myelopathy or radiculopathy, thoracic region; K59.00 Constipation, unspecified
CPT/HCPCS: 72072; 72110